=== PATIENT | male | born 1945 | race Caucasian/White ===

== ENCOUNTER 2017-04-21 10:56 | Inpatient (IN) | payer OTHER, MEDICARE ==
[2017-04-21] MEDS ORDERED: chlordiazePOXIDE HCL 25 MG CAPSULE PO ONE (11:31)
[2017-04-21] MEDS ORDERED: FOLIC ACID INJECTION - 1 MG, THIAMINE HCL 100 MG, MULTIVIT INJECTION ADULT 10 ML in SOD... IVPB ONE (11:31)
[2017-04-21 12:06] LABS: ALBUMIN 4.1 g/dl (3.5-5.0); ALCOHOL < 5.0 mg/dl (5.3-49); ALK PHOS 52 U/L (32-92); ANION GAP 12 (8-16); BILIRUBIN,TOTAL 1.2 mg/dl (0.2-1.0); CALCIUM 9.4 mg/dl (8.4-10.2); CO2 23 mmol/L (22-28); CREATININE 0.7 mg/dl (0.6-1.3); GLUCOSE,RANDOM 120 mg/dl (74-106); MAGNESIUM 1.8 mg/dL (1.8-2.4); PHOSPHOROUS 3.3 mg/dl (2.5-4.6); SGOT/AST 59 U/L (10-42); SGPT/ALT 50 U/L (10-40); TOT PROT 6.6 g/dl (6.4-8.3)
[2017-04-21] MEDS ORDERED: THIAMINE HCL 200 MG/2 ML VIAL ONE (12:08)
[2017-04-21] MEDS ORDERED: MULTIVIT INJ. ADULT COMBO WITH VIT K 1 COMBO 10 ML VIAL IV ONE (12:10)
[2017-04-21] MEDS ORDERED: FOLIC ACID 5 MG/1 ML ONE (12:11)
--- NOTE | 2017-04-21 12:11 | PDOC ---
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 The patient had alcohol yesterday, and unclear if patient syncopized or fell (as he was intoxicated) and struck his head. Unclear if LOC, but patient was on the the ground. The patient's had helped the patient up to bed. Today, he was unable to ambulate or get out of bed 2/2 R hip pain and b/ l knee pain. Pt did fall on his knees yesterday. (last tetanus 3 years ago). Pt typically ambulates without a cane. EMS was activated. The patient denies feeling recently ill, but did notice he has been losing weight over the last year (25 lbs). Pt acknowledges that he has an alcohol problem and was diagnosed with fatty liver disease. 04/21/17 15:27 Past History - Past Medical History Allergies/Adverse Reactions: Allergies Allergy/AdvReac Type Severity Reaction Status Date / Time No Known Allergies Allergy Verified 04/21/17 10:58 Home Medications: Ambulatory Orders Albuterol Sulfate Inhaler - [Ventolin Hfa Inhaler -] 1 - 2 inh PO PRN PRN Atorvastatin Ca [Lipitor] 10 mg PO HS 04/21/17 Beclomethasone Dipropionate [Qvar] 8.7 gm IH BID 04/21/17 Chlorthalidone [Hygroton -] 25 mg PO DAILY 04/21/17 Desloratadine 5 mg PO DAILY 04/21/17 Escitalopram Oxalate [Lexapro -] 20 mg PO DAILY 04/21/17 Fluticasone Propionate [Flovent Diskus] 50 mcg IH BID 04/21/17 Levocetirizine Dihydrochloride 5 mg PO DAILY 04/21/17 Levothyroxine [Synthroid -] 100 mcg PO DAILY 04/21/17 Omalizumab [Xolair -] 150 mg SQ ASDIR 04/21/17 Prednisone 10 mg PO ASDIR 04/21/17 Umeclidinium [place] [Incruse Ellipta] 62.5 mcg IH DAILY 04/21/17 Voriconazole [Vfend] 200 mg PO DAILY 04/21/17 Warfarin Sodium [Coumadin] 2.5 mg PO HS 04/21/17 Asthma: Yes COPD: No HTN: Yes Hypercholesterolemia: Yes Thyroid Disease: Yes Other medical history: dvt, sinusitis, PE, - Suicide/Smoking/Psychosocial Hx Smoking History: Never smoked Hx Alcohol Use: Yes Drug/Substance Use Hx: No Substance Use Type: Alcohol Review of Systems - Review of Systems Able to Perform ROS?: Yes Comments:: 04/21/17 12:10 GENERAL/CONSTITUTIONAL: No fever, weakness. HEAD, EYES, EARS, NOSE AND THROAT: No change in vision. No ear pain or discharge. No sore throat. CARDIOVASCULAR: No chest pain or shortness of breath. RESPIRATORY: No cough, wheezing, or hemoptysis. GASTROINTESTINAL: No abdominal pain, nausea, vomiting, diarrhea, or decreased PO intolerance. GENITOURINARY: No dysuria, frequency, or change in urination. MUSCULOSKELETAL: R hip and bilateral knee pain. SKIN: No rash NEUROLOGIC: No headache, vertigo, loss of consciousness, or change in strength/ sensation. +fall and ?LOC. ENDOCRINE: No increased thirst. No abnormal weight change. HEMATOLOGIC/LYMPHATIC: No anemia, easy bleeding, or history of blood clots. ALLERGIC/IMMUNOLOGIC: No hives or skin allergy. *Physical Exam - Vital Signs Last Vital Signs Temp Pulse Resp BP Pulse Ox 98.6 F 103 H 16 152/69 97 04/21/17 11:02 04/21/17 11:02 04/21/17 11:02 04/21/17 11:02 04/21/17 11:02 - Physical Exam Comments: 04/21/17 12:10 GENERAL: Awake, alert, and fully oriented, in no acute distress. HEAD: +Small abrasion to right chin and to left forehead. EYES: PERRLA, EOMI, sclera anicteric, conjunctiva clear ENT: Auricles normal inspection, hearing grossly normal, nares patent, +tongue fasciculations NECK: Normal ROM, supple, no lymphadenopathy, JVD, or masses LUNGS: Breath sounds equal, clear to auscultation bilaterally. No wheezes, and no crackles HEART: Regular rate and rhythm, normal S1 and S2, no murmurs, rubs or gallops ABDOMEN: Soft, nontender, normoactive bowel sounds. No guarding, no rebound. No masses EXTREMITIES: No clubbing or cyanosis. No cords, erythema, or tenderness. Bilateral knee abrasions. +mild erythema but no drainage or induration (likely inflammation as opposed to infection) RLE: 2+ DP pulse. TTP right lateral hip. R hip range of motion limited 2/2 pain. NEUROLOGICAL: Cranial nerves II through XII intact. Normal speech. Upper extremities tremors. Sensation intact and strength intact in upper extremities. Sensation decreased in lower extremities bilaterally (2/2 peipheral neuropathy) SKIN: Warm, Dry, normal turgor, no rashes or lesions noted. ED Treatment Course - LABORATORY CBC & Chemistry Diagram: 04/21/17 11:31 04/21/17 11:31 - ADDITIONAL ORDERS Additional order review: Laboratory Results 04/21/17 04/21/17 11:31 11:31 Sodium 132 L Potassium 4.3 Chloride 97 L Carbon Dioxide 23 Anion Gap 12 BUN 22 H Creatinine 0.7 Creat Clearance w eGFR > 60 Random Glucose 120 H Calcium 9.4 Phosphorus 3.3 Magnesium 1.8 Total Bilirubin 1.2 H AST 59 H ALT 50 H Alkaline Phosphatase 52 Total Protein 6.6 Albumin 4.1 Lipase 22 Alcohol, Quantitative < 5.0 L - RADIOLOGY Radiology Studies Ordered: Category Date Time Status HEAD CT WITHOUT CONTRAST [CT] Stat CT Scan 04/21/17 11:31 Completed CHEST X-RAY PORTABLE* [RAD] Stat Radiology 04/21/17 11:31 Ordered HIP & PELVIS-RIGHT [RAD] Stat Radiology 04/21/17 11:31 Ordered KNEE 3 POS-LEFT [RAD] Stat Radiology 04/21/17 11:31 Ordered KNEE 3 POS-RIGHT [RAD] Stat Radiology 04/21/17 11:31 Ordered Medical Decision Making - Medical Decision Making 04/21/17 12:10 Vital Signs Temp Pulse Resp BP Pulse Ox 98.6 F 103 H 16 152/69 97 04/21/17 11:02 04/21/17 11:02 04/21/17 11:02 04/21/17 11:02 04/21/17 11:02 60 year old male patient presents with multiple issues. Yesterday, it certainly could have been a mechanical fall while intoxicated. But given multiple medical problems, will need to do due diligence, and work up as a syncope. ECG, chest xray, labs including troponin. In addition, patient was noted to be mildly tachycardic and tremulous with last drink of alcohol yesterday concerning for alcohol withdrawals. Librium, banana bag. The right hip is quite tender and may potentially be fractured. Will need hip and pelvis xray. As of now, the bilateral knees look like abrasions and NOT infected yet, but given peripheral neuropathy, on daily prednisone (10 mg for his asthma), and alcohol abuse, high risk for potential cellulitis. Pt is unable to ambulate 2/2 pain. Will likely admit the patient to the hospital. 04/21/17 14:10 CBC, BMP 04/21/17 11:31 04/21/17 11:31 CMP Sodium 132 mmol/L (136-145) L 04/21/17 11:31 Potassium 4.3 mmol/L (3.5-5.1) 04/21/17 11:31 Chloride 97 mmol/L (98-107) L 04/21/17 11:31 Carbon Dioxide 23 mmol/L (22-28) 04/21/17 11:31 Anion Gap 12 (8-16) 04/21/17 11:31 BUN 22 mg/dl (7-18) H 04/21/17 11:31 Creatinine 0.7 mg/dl (0.6-1.3) 04/21/17 11:31 Creat Clearance w eGFR > 60 (>60) 04/21/17 11:31 Random Glucose 120 mg/dl (74-106) H 04/21/17 11:31 Calcium 9.4 mg/dl (8.4-10.2) 04/21/17 11:31 Phosphorus 3.3 mg/dl (2.5-4.6) 04/21/17 11:31 Magnesium 1.8 mg/dL (1.8-2.4) 04/21/17 11:31 Total Bilirubin 1.2 mg/dl (0.2-1.0) H 04/21/17 11:31 AST 59 U/L (10-42) H 04/21/17 11:31 ALT 50 U/L (10-40) H 04/21/17 11:31 Alkaline Phosphatase 52 U/L (32-92) 04/21/17 11:31 Troponin I < 0.03 ng/ml (0.03-0.50) L 04/21/17 11:31 Total Protein 6.6 g/dl (6.4-8.3) 04/21/17 11:31 Albumin 4.1 g/dl (3.5-5.0) 04/21/17 11:31 Lipase 22 U/L (22-51) 04/21/17 11:31 UA pending. HIs tremors improved with librium. Radiographs and Head CT is negative. However, pt continues to have R hip pain. CT pelvis ordered and pending. The patient would likely benefit significantly from a PT evaluation, and reworker in addition to monitoring. Given the fall, the patient has been having difficulties getting around the home, and the is having difficulties caring for him. Will admit for alcohol withdrawal, rule out syncope, right hip pain. 1 *DC/Admit/Observation/Transfer Diagnosis at time of Disposition: Hip pain Qualifiers: Laterality: right Qualified Code(s): M25.551 - Pain in right hip Fall Qualifiers: Encounter type: initial encounter Qualified Code(s): W19.XXXA - Unspecified fall, initial encounter Alcohol withdrawal Qualifiers: Complication of substance-induced condition: uncomplicated Qualified Code(s): F10.230 - Alcohol dependence with withdrawal, uncomplicated - Discharge Dispostion Condition at time of disposition: Stable Admit: Yes - Referrals - Patient Instructions - Post Discharge Activity
[2017-04-21 12:14] LABS: BASOPHIL 0.2 % (0-2.0); EOSINOPHIL 0.1 % (0-4.5); MCH 34.4 pg (25.7-33.7); MCHC 34.8 g/dl (32.0-35.9); MEAN CELL VOLUME 98.9 fl (80-96); MEAN PLT VOLUME 9.1 fl (7.5-11.1); NEUTROPHILS 80.8 % (42.8-82.8); PLATELET COUNT 151 K/MM3 (134-434); RDW 13.6 % (11.9-15.9); WHITE BLOOD COUNT 10.1 K/mm3 (4.0-10.8)
[2017-04-21 12:19] LABS: TROPONIN I (DFP) < 0.03 ng/ml (0.03-0.50)
[2017-04-21 12:25] LABS: ACTIVATED PTT 29.3 SECONDS (24.0-38.9)
[2017-04-21 12:29] LABS: INR 1.95 (0.82-1.09); PROTHROMBIN TIME (PATIENT) 21.5 SEC (10.2-13.0)
[2017-04-21] MEDS ORDERED: chlordiazePOXIDE HCL 25 MG CAPSULE ONE (12:31)
[2017-04-21] MEDS ORDERED: diazePAM CARPU-JECT 10 MG/2 ML DISP.SYRIN IVPUSH ONE (14:13)
[2017-04-21] MEDS ORDERED: diazePAM CARPU-JECT 10 MG/2 ML DISP.SYRIN ONE (14:17)
[2017-04-21 14:54] LABS: URINE APPEARANCE Clear; URINE BILIRUBIN 1+ (NEGATIVE); URINE BLOOD Negative (NEGATIVE); URINE GLUCOSE (UA) Negative (NEGATIVE); URINE KETONE 3+ (NEGATIVE); URINE LEUK ESTERASE Negative (NEGATIVE); URINE NITRITE Negative (NEGATIVE); URINE PROTEIN Trace (NEGATIVE)
[2017-04-21 14:55] LABS: URINE COLOR YELLOW
--- NOTE | 2017-04-21 15:05 | HP ---
CHIEF COMPLAINT: fall at home, increased weakness, syncope PCP: HISTORY OF PRESENT ILLNESS: Patient is a 71 year old male with a significant past medical history of peripheral neuropathy, severe asthma on daily prednisone (Prednisone 10mg), hx of PEs and DVTs (on home Coumadin), hyperlipidemia, thyroid disorder, alcohol daily use (3 glasses of wine and scotch) as per patient. Patient presents to the ED today for worsening weakness after sustaining a fall yesterday. Patient reports that yesterday, he was drinking his usual amount of alcohol and fell when he went outside. He states he fell on the concrete but does not remember hitting his head, does not remember any LOC. After the fall, his helped him get back inside and into the bed. However, this morning, patient was unable to get out of the bed or ambulate secondary to right hip and bilateral knee pain. Patient states that he is able to ambulate unassisted at home and does not use any devices. Patient admits to chronic alcohol use and abuse and is interested in detox and eventually rehab. On admission, patient was noted to have upper body tremors, headaches, and appears anxious. He is at risk for withdrawal seizure. His CIWA score is high and therefore a Libirum taper will be initiated. He is currently receiving a banana bag. He is also noted to have bilateral knee scapes, abrasions, a facial abrasion on left upper cheek and a small bruise on the bottom of his lip. He is also noted to have a bruise to his right hip. ER course was notable for: (1) troponin 0.03 (2) NA 132 (3) Bili 1.2 (4) AST 59/ALT 59 (5) ETOH <5.0 (7) Ketones 3+ (8) Librium 50mg and Valium in ER Recent Travel: none reported PAST MEDICAL HISTORY: peripheral neuropathy, severe asthma on daily prednisone (Prednisone 10mg), hx of PEs and DVTs (on home Coumadin), hyperlipidemia, thyroid disorder, alcohol daily use (3 glasses of wine and scotch) as per patient. PAST SURGICAL HISTORY: Social History: Smoking: denies Alcohol: yes chronic, daily ETOH use Drugs: denies Family History: Allergies No Known Allergies Allergy (Verified 04/21/17 10:58) HOME MEDICATIONS: Home Medications Medication Instructions Recorded Albuterol Sulfate Inhaler - 1 - 2 inh PO PRN PRN 04/21/17 [Ventolin Hfa Inhaler -] Atorvastatin Ca [Lipitor] 10 mg PO HS 04/21/17 Beclomethasone Dipropionate [Qvar] 8.7 gm IH BID 04/21/17 Chlorthalidone [Hygroton -] 25 mg PO DAILY 04/21/17 Desloratadine 5 mg PO DAILY 04/21/17 Escitalopram Oxalate [Lexapro -] 20 mg PO DAILY 04/21/17 Fluticasone Propionate [Flovent 50 mcg IH BID 04/21/17 Diskus] Levocetirizine Dihydrochloride 5 mg PO DAILY 04/21/17 Levothyroxine [Synthroid -] 100 mcg PO DAILY 04/21/17 Omalizumab [Xolair -] 150 mg SQ ASDIR 04/21/17 Prednisone 10 mg PO ASDIR 04/21/17 Umeclidinium [place] [Incruse 62.5 mcg IH DAILY 04/21/17 Ellipta] Voriconazole [Vfend] 200 mg PO DAILY 04/21/17 Warfarin Sodium [Coumadin] 2.5 mg PO HS 04/21/17 REVIEW OF SYSTEMS CONSTITUTIONAL: Absent: fever, chills, diaphoresis, HEENT: Absent: rhinorrhea, nasal congestion, throat pain, throat swelling, difficulty swallowing, mouth swelling, ear pain, eye pain, visual changes CARDIOVASCULAR: Absent: chest pain, palpitations, irregular heart rate, peripheral edema RESPIRATORY: Absent: cough, shortness of breath, dyspnea with exertion, orthopnea, wheezing, stridor, hemoptysis GASTROINTESTINAL: Absent: abdominal pain, nausea, vomiting, diarrhea, constipation, melena, hematochezia GENITOURINARY: Absent: dysuria, frequency, urgency, hesitancy, hematuria, flank pain, genital pain MUSCULOSKELETAL: Absent: myalgia, arthralgia, joint swelling, back pain, neck pain SKIN: Absent: rash, itching, pallor HEMATOLOGIC/IMMUNOLOGIC: Absent: easy bleeding, easy bruising, lymphadenopathy, frequent infections ENDOCRINE: Absent: unexplained weight gain, heat intolerance, cold intolerance NEUROLOGIC: Absent: headache, focal weakness or paresthesias, mental status changes, bladder or bowel incontinence PSYCHIATRIC: Absent: suicidal or homicidal ideation, hallucinations. PHYSICAL EXAMINATION Vital Signs - 24 hr 04/21/17 04/21/17 11:02 14:43 Temperature 98.6 F Pulse Rate 103 H Pulse Rate [ 85 Apical] Respiratory 16 16 Rate Blood Pressure 152/69 Blood Pressure 114/58 [Right Arm] O2 Sat by Pulse 97 97 Oximetry (%) GENERAL: Awake, alert, and oriented to self, place and time, upper body tremors on exam HEAD: Laceration on left side of face by cheek bone, bruise on right bottom lip EYES: Pupils equal, round and reactive to light, extraocular movements intact, sclera anicteric, conjunctiva clear. No lid lag. EARS, NOSE, THROAT: Ears normal, nares patent, oropharynx clear without exudates. Moist mucous membranes. NECK: Normal range of motion, supple without lymphadenopathy, JVD, or masses. LUNGS: Breath sounds equal, diminished bilaterally, no wheezing HEART: Regular rate and rhythm ABDOMEN: Soft, nontender, mildly distended, + bowel sounds, no abdominal pain MUSCULOSKELETAL: bilateral lower ext. weakness, bilateral knees with abrasions, lacerations UPPER EXTREMITIES: tremors at rest NEUROLOGICAL: speech mostly clear, garbled at times PSYCHIATRIC: Cooperative. Good eye contact. Appropriate mood and affect. SKIN: right small facial abrasion, bruise on right side of lip, bilateral knee abrasions s/p fall, right hip bruise s/p fall Laboratory Results - last 24 hr 04/21/17 04/21/17 04/21/17 11:31 11:31 11:31 WBC 10.1 RBC 3.94 L Hgb 13.5 Hct 38.9 MCV 98.9 H MCH 34.4 H MCHC 34.8 RDW 13.6 Plt Count 151 MPV 9.1 Neutrophils % 80.8 Lymphocytes % 7.6 L Monocytes % 11.3 H Eosinophils % 0.1 Basophils % 0.2 PT with INR 21.5 H INR 1.95 H PTT (Actin FS) 29.3 Sodium 132 L Potassium 4.3 Chloride 97 L Carbon Dioxide 23 Anion Gap 12 BUN 22 H Creatinine 0.7 Creat Clearance w eGFR > 60 Random Glucose 120 H Calcium 9.4 Phosphorus 3.3 Magnesium 1.8 Total Bilirubin 1.2 H AST 59 H ALT 50 H Alkaline Phosphatase 52 Troponin I Total Protein 6.6 Albumin 4.1 Lipase 22 Urine Color Urine Appearance Urine pH Ur Specific [place] Urine Protein Urine Glucose (UA) Urine Ketones Urine Blood Urine Nitrite Urine Bilirubin Urine Urobilinogen Ur Leukocyte Esterase Alcohol, Quantitative 04/21/17 04/21/17 11:31 14:41 WBC RBC Hgb Hct MCV MCH MCHC RDW Plt Count MPV Neutrophils % Lymphocytes % Monocytes % Eosinophils % Basophils % PT with INR INR PTT (Actin FS) Sodium Potassium Chloride Carbon Dioxide Anion Gap BUN Creatinine Creat Clearance w eGFR Random Glucose Calcium Phosphorus Magnesium Total Bilirubin AST ALT Alkaline Phosphatase Troponin I < 0.03 L Total Protein Albumin Lipase Urine Color Yellow Urine Appearance Clear Urine pH 6.0 Ur Specific [place] 1.025 Urine Protein Trace Urine Glucose (UA) Negative Urine Ketones 3+ H Urine Blood Negative Urine Nitrite Negative Urine Bilirubin 1+ H Urine Urobilinogen 2.0 Ur Leukocyte Esterase Negative Alcohol, Quantitative < 5.0 L ASSESSMENT/PLAN: Patient is a 71 year old male with a significant past medical history of peripheral neuropathy, severe asthma on daily prednisone (Prednisone 10mg), hx of PEs and DVTs (on home Coumadin), hyperlipidemia, thyroid disorder, alcohol daily use (3 glasses of wine and scotch) as per patient. Patient presents to the ED today for worsening weakness after sustaining a fall yesterday. Patient reports that yesterday, he was drinking his usual amount of alcohol and fell when he went outside. He states he fell on the concrete but does not remember hitting his head, does not remember any LOC. After the fall, his helped him get back inside and into the bed. However, this morning, patient was unable to get out of the bed or ambulate secondary to right hip and bilateral knee pain. Patient states that he is able to ambulate unassisted at home and does not use any devices. Patient admits to chronic alcohol use and abuse and is interested in detox and eventually rehab. On admission, patient was noted to have upper body tremors, headaches, and appears anxious. He is at risk for withdrawal seizure. His CIWA score is high and therefore a Libirum taper will be initiated. He is currently receiving a banana bag. He is also noted to have bilateral knee scapes, abrasions, a facial abrasion on left upper cheek and a small bruise on the bottom of his lip. He is also noted to have a bruise to his right hip. Imaging: Head CT: no evidence of acute intracranial pathology Hip Pelvix Xray: no fracture or dislocation of right hip Knree xray: no evidence of acute fracture Neuro: Syncope with Fall in the setting of ETOH abuse CIWA score elevated, at risk for seizures Start Librium protocol now Monitor for seizures Banana bag x 1 IVF @ 100cc/hr Monitor mental status Head CT as above Consult with [facility] Electrolyte Imbalance in the setting of chronic ETOH use Hypernatremia, start NS @ 100cc/hr Folate, Multivitamin Cardiology: Syncope, rule out cardiac cause Troponins x 3 Monitor BP Monitor on tele Hyperlipidemia, chronic Lipid panel Muscular Skeletal/Integumentary: Bilateral knees with abrasions, no signs of infection monitor closely for cellulitis as pt has hx of falls and is on chronic prednisone Monitor labs, vitals, monitor for signs of infection Pulmonary: Severe asthma history Does not appear to be in acute exacerbation but nethertheless at risk Continue home Prednisone 10mg Albuteroal PRN Pulmonary consult Hematology: DVT/PE history Continue Coumadin per INR Monitor labs s/p fall F.E.N. Fluids: NS @100/cc/hr Electrolytes: monitor Nutriton: regular diet Disposition: full code. Requires inpatient monitoring Visit type - Emergency Visit Emergency Visit: Yes ED Registration Date: 04/21/17 Care time: The patient presented to the Emergency Department on the above date and was hospitalized for further evaluation of their emergent condition. - New Patient This patient is new to me today: Yes Date on this admission: 04/21/17 - Critical Care Critical Care patient: No
[2017-04-21] MEDS ORDERED: chlordiazePOXIDE HCL 25 MG CAPSULE PO PRN (15:08)
[2017-04-21] MEDS ORDERED: SODIUM CHLORIDE 1,000 ML IV SCH (15:15)
[2017-04-21] MEDS: chlordiazePOXIDE HCL 25 MG CAPSULE PO SCH ×2 (16:55→23:36)
[2017-04-21 17:47] VITALS: BMI 27.1
--- NOTE | 2017-04-21 18:10 | CONSULT ---
"Consult Detox [facility] Reason for Current Admission/Consult: evaluation of alcohol use Referred by:: Bonny Cleveland NP - History History of Present Illness: Search Terms: Ron Moyer, 1945 Search Date: 04/21/2017 07:03:44 PM The Drug Utilization Report below displays all of the controlled substance prescriptions, if any, that your patient has filled in the last twelve months. The information displayed on this report is compiled from pharmacy submissions to the Department, and accurately reflects the information as submitted by the pharmacies. This report was requested by: Merrill Brown | Reference #: [id number] 71 yo m w PMHx of depression on lexapro, painful peripheral neuropathy, asthma on prednisone, , hx of PEs and DVTs, hyperlipidemia, thyroid disorder, daily alcohol use 3 glasses wine/scotch reported which has increased since retiring one year ago. Admitted with acetabular fx after falling while intoxicated 2 days ago. Has never been in drug treatment although he gives long history of drinking and strong family history. Patient reports alcohol withdrawal syndrome when he does not drink but denies seizures or DTS in the past. Suffers from depression and is on lexapro. Recieved bananna bag and benzodiazepines since hospitalized but still c/o tremors, anxiety and insomnia, sweats and pain in r hip and peripheral neuropathy keeping him up at night Has bilateral knee scapes, abrasions, a facial abrasion on left upper cheek and a small bruise on the bottom of his lip. He is also noted to have a bruise to his right hip. - History Source History Provided By: Patient, Medical Record, Caregiver Limitations to Obtaining History: No Limitations - Alcohol/Substance Use Hx Alcohol Use: Yes Hx Substance Use: No Hx Substance Use Treatment: No - Current Drug/Alcohol Use Alcohol Route: Oral Frequency: Daily Amount used: 3 glasses of wine and scotch with recent increase in use over past year Age of first use: 20 Date of Last Use: 04/20/17 - Past Medical History TRENCH DIGGER: Yes: Peripheral Neuropathy Cardio/Vascular: Yes: Hyperlipdemia Pulmonary: Yes: Asthma Psych: Yes: Addictions, Depression Endocrine: Yes: Diabetes Mellitus - Significant Medical Findings: 71 y malnourished male with signs of alcohol withdrawal sx and tremors, abrasions and bruising over body from fall while intoxicated, unable to get out of bed without assistance, a and o x3, answers appropriately. requesting rehab after detox and pain management CIWA Score - CIWA Score Nausea/Vomitin Muscle Tremors: 4-Moderate,w/Arms Extend Anxiety: 3 Agitation: 3 Paroxysmal Sweats: 3 Orientation: 0-Oriented Tacttile Disturbances: 2-Mild Itch/Numbness/Burn Auditory Disturbances: 0-None Visual Disturbances: 0-None Headache: 2-Mild CIWA-Ar Total Score: 20 Assessment Plan - Diagnosis (1) Alcohol dependence with uncomplicated withdrawal Status: Acute (2) Asthma Status: Acute (3) Depression Status: Acute (4) Diabetes mellitus Status: Acute (5) Hypokalemia Status: Acute (6) Peripheral neuropathy Status: Acute (7) Fall Status: Acute Qualifiers: Encounter type: initial encounter Qualified Code(s): W19.XXXA - Unspecified fall, initial encounter (8) Hip pain Status: Acute Qualifiers: Laterality: right Qualified Code(s): M25.551 - Pain in right hip (9) Hypoalbuminemia Status: Acute (10) Hypomagnesemia Status: Acute - Plan Plan: 71 yo m with multiple medical comorbidities admitted with alcohol dependence and withdrawal sx after falling and fracturing acetabulum yesterday while intoxicated, now sober requiring alcohol detox with librium and nutritional supplementation with glucerna, MVI which contaisns iron and folic acid , thiamine at night , k and mg supplementation, control of pain - peripheral neuropathy reportedly keeping him up at night. gabapentin 100mg tid and elavil 25mg qHS ordered, MVI and thiamine as well. Patient is requesting placement in rehab after inpatient medical detox at [facility] - can come to [facility] if bed available but he may want to go to private facility with psychiatric care such as [facility] if he can afford it. Consider referral for intensive outpatient treatment to [facility]/ [facility] for alcohol use disorder in his aftercare plan. Can recieve psychaitric care and medication assisted treatment for alcohol use disorder if inpatient treatment not an option. Will lindsay julien for ramon phillips. Merrill Brown MD [phone] - Medication Detox Regimen/Protocol: Librium"
[2017-04-21] MEDS: WARFARIN NA 2.5 MG TABLET (FP) PO SCH (18:16)
[2017-04-21] MEDS ORDERED: ZOLPIDEM TARTRATE 5 MG TABLET PO PRN (19:05)
[2017-04-21] MEDS: THIAMINE HCL 100 MG TABLET (FP) PO SCH (21:44)
[2017-04-21] MEDS: ATORVASTATIN CA 10 MG TABLET (FP) PO SCH (21:44)
[2017-04-21] MEDS: MOMETASONE FUROATE 220 MCG/IH INHALER IH SCH (21:44)
[2017-04-22 01:36] LABS: URINE MARIJUANA THC NEGATIVE ng/ml (CUTOFF=50)
[2017-04-22] MEDS: chlordiazePOXIDE HCL 25 MG CAPSULE PO SCH ×4 (04:36→22:34)
[2017-04-22] MEDS: LEVOTHYROXINE NA 100 MCG TABLET (FP) PO SCH (06:01)
--- NOTE | 2017-04-22 08:27 | PN ---
Physical Exam: SUBJECTIVE: Patient seen and examined, patient reports ongoing right hip pain that worsens upon movement, patient denies any paresthesia to the extremity. OBJECTIVE: Patient is a 71 y/o male with a past medical history of DVT/PE, COPD , peripheral vascular disease, and hypothyroidism. Patient was admitted from the emergency department for a right acetabular pelvic fracture. Vital Signs Period Temp Pulse Resp BP Sys/Mello Pulse Ox Last 24 Hr 98.4 F-99.0 F 80-103 16-19 114-152/58-69 96-97 GENERAL: The patient is awake, alert, and fully oriented, in no acute distress. HEAD: Normal with no signs of trauma. EYES: PERRL, extraocular movements intact, sclera anicteric, conjunctiva clear. No ptosis. ENT: Ears normal, nares patent, oropharynx clear without exudates, moist mucous membranes. NECK: Trachea midline, full range of motion, supple. LUNGS: Breath sounds equal, clear to auscultation bilaterally, no wheezes, no crackles, no accessory muscle use. HEART: Regular rate and rhythm, S1, S2 without murmur, rub or gallop. ABDOMEN: Soft, nontender, nondistended, normoactive bowel sounds, no guarding, no rebound, no hepatosplenomegaly, no masses. EXTREMITIES: 2+ pulses, warm, well-perfused, no edema. echymosis to the right lateral proximal thigh with point tenderness, venous changes to bilateral lower extremities. NEUROLOGICAL: Cranial nerves II through XII grossly intact. Normal speech, gait not observed. PSYCH: Normal mood, normal affect. SKIN: Warm, dry, normal turgor, no rashes or lesions noted, echymosis noted to the back and billateral lower extremities. abrasion noted to bilateral knees Laboratory Results - last 24 hr CBC WBC 6.2 K/mm3 (4.0-10.8) D 04/22/17 08:10 RBC 3.47 M/mm3 (4.00-5.60) L 04/22/17 08:10 Hgb 11.8 GM/dl (11.7-16.9) D 04/22/17 08:10 Hct 34.7 % (35.4-49) L 04/22/17 08:10 MCV 100.2 fl (80-96) H 04/22/17 08:10 MCH 34.1 pg (25.7-33.7) H 04/22/17 08:10 MCHC 34.0 g/dl (32.0-35.9) 04/22/17 08:10 RDW 12.9 % (11.9-15.9) 04/22/17 08:10 Plt Count 115 K/MM3 (134-434) L D 04/22/17 08:10 MPV 8.7 fl (7.5-11.1) 04/22/17 08:10 Neutrophils % 73.8 % (42.8-82.8) 04/22/17 08:10 Lymphocytes % 14.9 % (8-40) D 04/22/17 08:10 Monocytes % 10.4 % (3.8-10.2) H 04/22/17 08:10 Eosinophils % 0.3 % (0-4.5) D 04/22/17 08:10 Basophils % 0.6 % (0-2.0) 04/22/17 08:10 CMP Sodium 138 mmol/L (136-145) 04/22/17 08:10 Potassium 3.4 mmol/L (3.5-5.1) L D 04/22/17 08:10 Chloride 104 mmol/L (98-107) 04/22/17 08:10 Carbon Dioxide 24 mmol/L (22-28) 04/22/17 08:10 Anion Gap 10 (8-16) 04/22/17 08:10 BUN 12 mg/dl (7-18) D 04/22/17 08:10 Creatinine 0.6 mg/dl (0.6-1.3) 04/22/17 08:10 Creat Clearance w eGFR > 60 (>60) 04/22/17 08:10 Random Glucose 94 mg/dl (74-106) D 04/22/17 08:10 Hemoglobin A1c % 6.2 % (4.8-6.0) H 04/22/17 08:10 Calcium 7.9 mg/dl (8.4-10.2) L 04/22/17 08:10 Phosphorus 2.5 mg/dl (2.5-4.6) D 04/22/17 07:50 Magnesium 1.7 mg/dL (1.8-2.4) L 04/22/17 08:10 Total Bilirubin 1.8 mg/dl (0.2-1.0) H D 04/22/17 08:10 AST 36 U/L (10-42) D 04/22/17 08:10 ALT 33 U/L (10-40) D 04/22/17 08:10 Alkaline Phosphatase 52 U/L (32-92) 04/21/17 11:31 Troponin I < 0.02 ng/ml (0.00-0.05) 04/22/17 01:00 Total Protein 5.2 g/dl (6.4-8.3) L D 04/22/17 08:10 Albumin 3.2 g/dl (3.5-5.0) L D 04/22/17 08:10 Lipase 22 U/L (22-51) 04/21/17 11:31 Active Medications Generic Name Dose Route Start Last Admin Trade Name Freq PRN Reason Stop Dose Admin Albuterol/Ipratropium 1 amp 04/21/17 15:59 Duoneb - NEB Q6H PRN SHORTNESS OF BREATH Atorvastatin Calcium 10 mg 04/21/17 22:00 04/21/17 21:44 Lipitor - PO 10 mg HS NIKKI Administration Chlordiazepoxide HCl 50 mg 04/21/17 17:00 04/22/17 04:36 Librium - PO 04/22/17 11:01 50 mg [id number] NIKKI Administration Chlordiazepoxide HCl 25 mg 04/22/17 17:00 Librium - PO 04/23/17 11:01 [id number] NIKKI Chlordiazepoxide HCl 15 mg 04/23/17 17:00 Librium - PO 04/24/17 11:01 [id number] NIKKI Chlordiazepoxide HCl 25 mg 04/21/17 15:08 Librium - PO 04/24/17 15:07 Q4H PRN WITHDRAWAL(CONT SUBST) Escitalopram Oxalate 20 mg 04/22/17 10:00 Lexapro - PO DAILY NIKKI Sodium Chloride 1,000 mls @ 100 mls/hr 04/21/17 15:15 04/21/17 16:56 Normal Saline - IV 100 mls/hr ASDIR NIKKI Administration Levothyroxine Sodium 100 mcg 04/22/17 07:00 04/22/17 06:01 Synthroid - PO 100 mcg DAILY@0700 NIKKI Administration Mometasone Furoate 1 puff 04/21/17 22:00 04/21/17 21:44 Asmanex 220mcg - IH 1 puff HS NIKKI Administration Prednisone 10 mg 04/22/17 10:00 Deltasone - PO DAILY NIKKI Multivit/Folic Acid/Iron 1 tab 04/22/17 10:00 Vitamins (Sjr) - PO DAILY NIKKI Thiamine HCl 100 mg 04/21/17 22:00 04/21/17 21:44 Vitamin B1 - PO 100 mg HS NIKKI Administration Warfarin Sodium 2.5 mg 04/21/17 18:00 04/21/17 18:16 Coumadin - PO 2.5 mg DAILY@1800 NIKKI Administration Zolpidem Tartrate 5 mg 04/21/17 19:05 Ambien - PO HS PRN INSOMNIA Imaging: Head CT: no evidence of acute intracranial pathology Hip Pelvix Xray: no fracture or dislocation of right hip Knee xray: no evidence of acute fracture ct of pelvis:acute right acetabular fracture ASSESSMENT/PLAN: 1) MS right acetabular fracture - continue prn morphine - appreciate the input of orthopedist (She/Sebastian) - serial neurovascular checks - abrasions noted to bilateral knees, start bactroban and ancef 2) CARDIOVASCULAR questionable synopal episode - troponin x 3 wnl - no events on cardiac monitoring hyperlipidemia - continue lipitor 3) pulmonary copd - no acute excerbation at this time, continue home dose prednisone - continue combivent and asmanex - appreciate pulmonary input 4) hematology hx dvt/pe - on coumadin, subtherepeutic start heparin gtt - scd/jacob 5) psych etoh - continue librium protocol - Dr Brown, clinical transformation specialist consulted and following anxiety/depression - continue lexapro 6) endo hypothyroidism -continue synthroid, pending tsh F.E.N. Fluids: NS w/20meg kci @75ml/hr x 2 bags Electrolytes: monitor Nutriton: regular diet ppx - heparin with coumdin bridge - pepcid - scd/jacob Disposition: full code. Requires inpatient monitoring Visit type - Emergency Visit Emergency Visit: Yes ED Registration Date: 04/21/17 Care time: The patient presented to the Emergency Department on the above date and was hospitalized for further evaluation of their emergent condition. - New Patient This patient is new to me today: Yes Date on this admission: 04/22/17 - Critical Care Critical Care patient: No - Discharge Referral Referred to [facility] Med P.C.: No
[2017-04-22 08:35] LABS: BASOPHIL 0.6 % (0-2.0); EOSINOPHIL 0.3 % (0-4.5); MCH 34.1 pg (25.7-33.7); MEAN CELL VOLUME 100.2 fl (80-96); MEAN PLT VOLUME 8.7 fl (7.5-11.1); NEUTROPHILS 73.8 % (42.8-82.8); PLATELET COUNT 115 K/MM3 (134-434); RDW 12.9 % (11.9-15.9); WHITE BLOOD COUNT 6.2 K/mm3 (4.0-10.8)
[2017-04-22 08:50] LABS: ALBUMIN 3.2 g/dl (3.5-5.0); ANION GAP 10 (8-16); BILIRUBIN,TOTAL 1.8 mg/dl (0.2-1.0); CALCIUM 7.9 mg/dl (8.4-10.2); CO2 24 mmol/L (22-28); CREATININE 0.6 mg/dl (0.6-1.3); GLUCOSE,RANDOM 94 mg/dl (74-106); MAGNESIUM 1.7 mg/dL (1.8-2.4); SGOT/AST 36 U/L (10-42); SGPT/ALT 33 U/L (10-40); TOT PROT 5.2 g/dl (6.4-8.3)
[2017-04-22 09:06] LABS: INR 1.38 (0.82-1.09); PROTHROMBIN TIME (PATIENT) 15.3 SEC (10.2-13.0)
[2017-04-22] MEDS: predniSONE 10 MG TABLET (UD) PO SCH (09:28)
[2017-04-22] MEDS: ESCITALOPRAM OXALATE 20 MG TABLET (FP) PO SCH (09:28)
[2017-04-22] MEDS ORDERED: MAGNESIUM SULFATE 2 GM in SODIUM CHLORIDE 100 ML IVPB ONE ×2 (09:39→11:00)
[2017-04-22] MEDS ORDERED: MAGNESIUM SULF 50% (8.12 MEQ/2 ML-1 GM VIAL) IVPB ONE (10:00)
[2017-04-22] MEDS ORDERED: POTASSIUM CHLORIDE TABS 20 MEQ TABLET.ER (FP) PO SCH (10:00)
[2017-04-22] MEDS ORDERED: POTASSIUM CHLORIDE TABS 20 MEQ TABLET.ER (FP) PO ONE (10:10)
--- NOTE | 2017-04-22 10:17 | CON.CARD ---
Consult Consult Specialty:: Cardiology Referred by:: Hospitalist service Reason for Consultation:: Cardiac evaluation - History of Present Illness Chief Complaint: Status post fall resulting in right pelvic fracture History of Present Illness: Patient is a 71 year old male with underlying history of pulmonary embolism and DVTs taking chronic anticoagulation (Coumadin) followed by Dr. Shakeel Lovell (Network Systems Consultant at [facility]), in addition to hypercholesterolemia, hypothyroidism, bronchial asthma and ETOH use. He presents with worsening weakness and sustained a fall resulting in right pelvic fracture. He has ETOH daily and was intoxicated when he presented to the hospital. He denies LOC, but has had LOC when he fell last year. Currently, he denies chest pain, shortness of breath or palpitations. He denies paroxysmal nocturnal dyspnea or orthopnea. He denies fever or chills. He denies headache or lightheadedness at this time. He still has tremors and is on Librium taper. He is awake and alert. Cardiology consultation was called for further evaluation and for cardiac clearance Cardiology: Dr. Shakeel Lovell at [facility] - History Source History Provided By: Patient, Medical Record Limitations to Obtaining History: Clinical Condition - Past Medical History Pulmonary: Yes: Asthma Gastrointestinal: Yes: Other (Fatty liver) - Alcohol/Substance Use Hx Alcohol Use: Yes History of Substance Use: reports: None - Smoking History Smoking history: Never smoked Home Medications - Allergies Allergies/Adverse Reactions: Allergies Allergy/AdvReac Type Severity Reaction Status Date / Time No Known Allergies Allergy Verified 04/21/17 10:58 - Home Medications Home Medications: Ambulatory Orders Albuterol Sulfate Inhaler - [Ventolin Hfa Inhaler -] 1 - 2 inh PO PRN PRN Atorvastatin Ca [Lipitor] 10 mg PO HS 04/21/17 Beclomethasone Dipropionate [Qvar] 8.7 gm IH BID 04/21/17 Chlorthalidone [Hygroton -] 25 mg PO DAILY 04/21/17 Desloratadine 5 mg PO DAILY 04/21/17 Escitalopram Oxalate [Lexapro -] 20 mg PO DAILY 04/21/17 Fluticasone Propionate [Flovent Diskus] 50 mcg IH BID 04/21/17 Levocetirizine Dihydrochloride 5 mg PO DAILY 04/21/17 Levothyroxine [Synthroid -] 100 mcg PO DAILY 04/21/17 Omalizumab [Xolair -] 150 mg SQ ASDIR 04/21/17 Prednisone 10 mg PO ASDIR 04/21/17 Umeclidinium [place] [Incruse Ellipta] 62.5 mcg IH DAILY 04/21/17 Voriconazole [Vfend] 200 mg PO DAILY 04/21/17 Warfarin Sodium [Coumadin] 2.5 mg PO HS 04/21/17 Review of Systems - Review of Systems Constitutional: denies: Chills, Fever Cardiovascular: denies: Chest Pain, Palpitations, Shortness of Breath Respiratory: denies: Cough, Hemoptysis, Orthopnea, PND, SOB, SOB on Exertion Gastrointestinal: denies: Abdominal Pain, Constipation, Diarrhea, Melena, Nausea , Rectal Bleeding, Vomiting Genitourinary: denies: Dysuria, Hematuria Musculoskeletal: reports: Joint Pain Neurological: reports: Syncope (Probably due to ETOH intoxication). denies: Dizziness, Headache, Seizure Vital Signs: Vital Signs Temperature 98.4 F 04/22/17 06:00 Pulse Rate 80 04/22/17 06:00 Respiratory Rate 19 04/22/17 06:00 Blood Pressure 128/63 04/22/17 06:00 O2 Sat by Pulse Oximetry (%) 96 04/22/17 06:37 Neck: Yes: Supple Respiratory: Yes: CTA Bilaterally Gastrointestinal: Yes: Normal Bowel Sounds, Soft. No: Tenderness Cardiovascular: Yes: Regular Rate and Rhythm JVD: No Carotid Bruit: No PMI: Non-Displaced Heart Sounds: Yes: S1, S2 Extremities: Yes: Erythema Edema: No - Other Data Labs, Other Data: CBC, BMP 04/22/17 08:10 04/22/17 08:10 INR, PTT INR 1.38 (0.82-1.09) H 04/22/17 08:10 Troponin, BNP 04/21/17 04/21/17 04/22/17 11:31 18:15 01:00 Troponin I < 0.03 L 0.02 < 0.02 Laboratory Results - last 24 hr 04/21/17 04/21/17 04/21/17 11:31 11:31 11:31 WBC 10.1 RBC 3.94 L Hgb 13.5 Hct 38.9 MCV 98.9 H MCH 34.4 H MCHC 34.8 RDW 13.6 Plt Count 151 MPV 9.1 Neutrophils % 80.8 Lymphocytes % 7.6 L Monocytes % 11.3 H Eosinophils % 0.1 Basophils % 0.2 PT with INR 21.5 H INR 1.95 H PTT (Actin FS) 29.3 Sodium 132 L Potassium 4.3 Chloride 97 L Carbon Dioxide 23 Anion Gap 12 BUN 22 H Creatinine 0.7 Creat Clearance w eGFR > 60 Random Glucose 120 H Hemoglobin A1c % Calcium 9.4 Phosphorus 3.3 Magnesium 1.8 Total Bilirubin 1.2 H AST 59 H ALT 50 H Alkaline Phosphatase 52 Troponin I Total Protein 6.6 Albumin 4.1 Lipase 22 Urine Color Urine Appearance Urine pH Ur Specific [place] Urine Protein Urine Glucose (UA) Urine Ketones Urine Blood Urine Nitrite Urine Bilirubin Urine Urobilinogen Ur Leukocyte Esterase Opiates Screen Methadone Screen Barbiturate Screen Phencyclidine Screen Ur Amphetamines Screen MDMA (Ecstasy) Screen Benzodiazepines Screen Cocaine Screen U Marijuana (THC) Screen Alcohol, Quantitative 04/21/17 04/21/17 04/21/17 11:31 14:41 18:15 WBC RBC Hgb Hct MCV MCH MCHC RDW Plt Count MPV Neutrophils % Lymphocytes % Monocytes % Eosinophils % Basophils % PT with INR INR PTT (Actin FS) Sodium Potassium Chloride Carbon Dioxide Anion Gap BUN Creatinine Creat Clearance w eGFR Random Glucose Hemoglobin A1c % Calcium Phosphorus Magnesium Total Bilirubin AST ALT Alkaline Phosphatase Troponin I < 0.03 L 0.02 Total Protein Albumin Lipase Urine Color Yellow Urine Appearance Clear Urine pH 6.0 Ur Specific [place] 1.025 Urine Protein Trace Urine Glucose (UA) Negative Urine Ketones 3+ H Urine Blood Negative Urine Nitrite Negative Urine Bilirubin 1+ H Urine Urobilinogen 2.0 Ur Leukocyte Esterase Negative Opiates Screen Methadone Screen Barbiturate Screen Phencyclidine Screen Ur Amphetamines Screen MDMA (Ecstasy) Screen Benzodiazepines Screen Cocaine Screen U Marijuana (THC) Screen Alcohol, Quantitative < 5.0 L 04/21/17 04/22/17 04/22/17 21:50 01:00 08:10 WBC 6.2 D RBC 3.47 L Hgb 11.8 D Hct 34.7 L MCV 100.2 H MCH 34.1 H MCHC 34.0 RDW 12.9 Plt Count 115 L D MPV 8.7 Neutrophils % 73.8 Lymphocytes % 14.9 D Monocytes % 10.4 H Eosinophils % 0.3 D Basophils % 0.6 PT with INR INR PTT (Actin FS) Sodium Potassium Chloride Carbon Dioxide Anion Gap BUN Creatinine Creat Clearance w eGFR Random Glucose Hemoglobin A1c % Calcium Phosphorus Magnesium Total Bilirubin AST ALT Alkaline Phosphatase Troponin I < 0.02 Total Protein Albumin Lipase Urine Color Urine Appearance Urine pH Ur Specific [place] Urine Protein Urine Glucose (UA) Urine Ketones Urine Blood Urine Nitrite Urine Bilirubin Urine Urobilinogen Ur Leukocyte Esterase Opiates Screen Negative Methadone Screen Negative Barbiturate Screen Negative Phencyclidine Screen Negative Ur Amphetamines Screen Negative MDMA (Ecstasy) Screen Negative Benzodiazepines Screen Positive Cocaine Screen Negative U Marijuana (THC) Screen Negative Alcohol, Quantitative 04/22/17 04/22/17 04/22/17 08:10 08:10 08:10 WBC RBC Hgb Hct MCV MCH MCHC RDW Plt Count MPV Neutrophils % Lymphocytes % Monocytes % Eosinophils % Basophils % PT with INR 15.3 H INR 1.38 H PTT (Actin FS) Sodium 138 Potassium 3.4 L D Chloride 104 Carbon Dioxide 24 Anion Gap 10 BUN 12 D Creatinine 0.6 Creat Clearance w eGFR > 60 Random Glucose 94 D Hemoglobin A1c % 6.2 H Calcium 7.9 L Phosphorus Magnesium 1.7 L Total Bilirubin 1.8 H D AST 36 D ALT 33 D Alkaline Phosphatase Troponin I Total Protein 5.2 L D Albumin 3.2 L D Lipase Urine Color Urine Appearance Urine pH Ur Specific [place] Urine Protein Urine Glucose (UA) Urine Ketones Urine Blood Urine Nitrite Urine Bilirubin Urine Urobilinogen Ur Leukocyte Esterase Opiates Screen Methadone Screen Barbiturate Screen Phencyclidine Screen Ur Amphetamines Screen MDMA (Ecstasy) Screen Benzodiazepines Screen Cocaine Screen U Marijuana (THC) Screen Alcohol, Quantitative Sinus rhythm with 1st degree AV block, no ST-T abnormality Echo: Pending Imaging - Results Chest X-ray: Report Reviewed (Unremarkable) Cat Scan: Report Reviewed (Pelvic fracture) EKG: Report Reviewed Problem List - Problems (1) Alcohol withdrawal Code(s): F10.239 - ALCOHOL DEPENDENCE WITH WITHDRAWAL, UNSPECIFIED Qualifiers: Complication of substance-induced condition: uncomplicated Qualified Code(s ): F10.230 - Alcohol dependence with withdrawal, uncomplicated (2) Fall Code(s): W19.XXXA - UNSPECIFIED FALL, INITIAL ENCOUNTER Qualifiers: Encounter type: initial encounter Qualified Code(s): W19.XXXA - Unspecified fall, initial encounter (3) Hip pain Code(s): M25.559 - PAIN IN UNSPECIFIED HIP Qualifiers: Laterality: right Qualified Code(s): M25.551 - Pain in right hip (4) Asthma Code(s): J45.909 - UNSPECIFIED ASTHMA, UNCOMPLICATED (5) Diabetes mellitus Code(s): E11.9 - TYPE 2 DIABETES MELLITUS WITHOUT COMPLICATIONS (6) Peripheral neuropathy Code(s): G62.9 - POLYNEUROPATHY, UNSPECIFIED Assessment/Plan 1. Mechanical fall with ETOH intoxication resulting in right pelvic fracture 2. History of PTE and DVT (suspect hypercoagulable state) - on Coumadin currently subtherapeutic 3. Hypercholesterolemia 4. ETOH withdrawl 5. Bronchial asthma 6. Hypothyroidism PLAN: 1. Currently INR is subtherapeutic. May consider Heparin or Lovenox bridge while off Coumadin if further surgical intervention is planned. If no surgery is planned, would restart Coumadin to keep INR 2-3 2. Detox - continue Librium taper - will eventually need further assistance. He was counseled importance of enrolling in detox program especially with a fall risk on Coumadin 3. Continue Atorvastatin 4. Thyroid replacement therapy 5. Orthopedic input to follow 6. Patient is to follow up with Dr. Shakeel Lovell ([phone]) at [facility] cardiac standpoint once discharged Further plans are to follow Rashi Keene MD
[2017-04-22] MEDS ORDERED: PT OWN MED DRAWER 7, Y5N ONE ×5 (10:32→21:27)
[2017-04-22] MEDS: AMITRIPTYLINE HCL 25 MG TABLET (FP) PO SCH ×2 (10:42→22:34)
[2017-04-22] MEDS: MUPIROCIN CA 2% TOPICAL CREAM 15 GM TUBE TP SCH ×2 (10:42→22:48)
[2017-04-22] MEDS: PRENATAL VITAMINS W/ FOLIC ACID TABLET (FP) PO SCH (10:42)
[2017-04-22] MEDS ORDERED: HEPARIN NA (PORCINE) 5,000 UNITS/ML 1ML VIAL IVPUSH PRN ×2 (11:32)
[2017-04-22] MEDS ORDERED: morphine CARPU-JECT 2 MG/1 ML DISP.SYRIN IVPUSH PRN (12:08)
[2017-04-22] MEDS: CEFAZOLIN 500 MG in DEXTROSE 5%-WATER - 50 ML IVPB SCH ×2 (12:45→17:15)
[2017-04-22] MEDS: LACTOBACILLUS ACIDOPHILUS 1 EACH TAB (FP) PO SCH (13:29)
[2017-04-22] MEDS: HEPARIN INFUSION - 25,000 UNITS/500 ML INFUS.BAG IVPB SCH (13:30)
[2017-04-22] MEDS: GABAPENTIN 100 MG CAPSULE (FP) PO SCH ×2 (14:00→22:34)
--- NOTE | 2017-04-22 14:11 | CONSULT ---
Consult - text type - Consultation Consultation Note: FULL COSULT DICTATED IMP: RIGHT ACETABULAR FRACTURE PLAN: PWB, PT, SNF, FALL PRECAUTIONS
[2017-04-22 14:27] LABS: ALK PHOS 41 U/L (32-92)
[2017-04-22 14:42] LABS: CHOLESTEROL 163 mg/dl
[2017-04-22 16:09] LABS: THYROXINE (T4) 5.9 ug/dl (4.5-12.1)
[2017-04-22 16:16] LABS: THYROID STIMULATING HORMONE 3.81 uIU/ml (0.358-3.74)
[2017-04-22] MEDS: ALBUTEROL SO4 2.5/IPRATROPIUM 0.5 INH SOL 3 ML VIAL.NEB. NEB PRN (17:14)
[2017-04-22] MEDS: WARFARIN NA 2.5 MG TABLET (FP) PO SCH (17:15)
[2017-04-22] MEDS: ACETAMINOPHEN 325 MG TABLET (FP) PO PRN (17:16)
--- NOTE | 2017-04-22 17:32 | CON.PULM ---
Consult Consult Specialty:: PULMONARY Referred by:: GUMARO Reason for Consultation:: ASTHMA - History of Present Illness Chief Complaint: COUGH/WHEEZE/SOB History of Present Illness: 71 year old Male with past medical history of peripheral neuropathy, severe asthma on daily prednisone, hx of PEs and DVTs on lifelong coumadin, HLD, thyroid disorder, alcohol abuse, drinks heavily daily (last alcohol use yesterday) p/w fall. The patient had alcohol yesterday, and unclear if patient syncopized or fell (as he was intoxicated) and struck his head. Unclear if LOC, but patient was on the the ground. The patient's had helped the patient up to bed. Today, he was unable to ambulate or get out of bed 2/2 R hip pain and b/ l knee pain. Pt did fall on his knees yesterday. (last tetanus 3 years ago). Pt typically ambulates without a cane. EMS was activated.The patient denies feeling recently ill, but did notice he has been losing weight over the last year (25 lbs). Pt acknowledges that he has an alcohol problem and was diagnosed with fatty liver disease. - History Source History Provided By: Patient, Medical Record Limitations to Obtaining History: Clinical Condition - Past Medical History Pulmonary: Yes: Asthma Gastrointestinal: Yes: Other (Fatty liver) - Alcohol/Substance Use Hx Alcohol Use: Yes History of Substance Use: reports: None - Smoking History Smoking history: Never smoked Home Medications - Allergies Allergies/Adverse Reactions: Allergies Allergy/AdvReac Type Severity Reaction Status Date / Time No Known Allergies Allergy Verified 04/21/17 10:58 - Home Medications Home Medications: Ambulatory Orders Albuterol Sulfate Inhaler - [Ventolin Hfa Inhaler -] 1 - 2 inh PO PRN PRN Atorvastatin Ca [Lipitor] 10 mg PO HS 04/21/17 Beclomethasone Dipropionate [Qvar] 8.7 gm IH BID 04/21/17 Chlorthalidone [Hygroton -] 25 mg PO DAILY 04/21/17 Desloratadine 5 mg PO DAILY 04/21/17 Escitalopram Oxalate [Lexapro -] 20 mg PO DAILY 04/21/17 Fluticasone Propionate [Flovent Diskus] 50 mcg IH BID 04/21/17 Levocetirizine Dihydrochloride 5 mg PO DAILY 04/21/17 Levothyroxine [Synthroid -] 100 mcg PO DAILY 04/21/17 Omalizumab [Xolair -] 150 mg SQ ASDIR 04/21/17 Prednisone 10 mg PO ASDIR 04/21/17 Umeclidinium [place] [Incruse Ellipta] 62.5 mcg IH DAILY 04/21/17 Voriconazole [Vfend] 200 mg PO DAILY 04/21/17 Warfarin Sodium [Coumadin] 2.5 mg PO HS 04/21/17 Family Disease History - Family Disease History Family History: Unremarkable Review of Systems - Review of Systems Constitutional: reports: Lethargy, Loss of Appetite, Weakness Eyes: reports: No Symptoms HENT: reports: No Symptoms Neck: reports: Decreased ROM Cardiovascular: denies: Chest Pain Respiratory: reports: Cough, Exercise Intolerance, SOB, SOB on Exertion Gastrointestinal: denies: Abdominal Pain Genitourinary: denies: Burning Breasts: reports: No Symptoms Reported Musculoskeletal: reports: No Symptoms Physical Exam Vital Sings: Vital Signs Temperature 97.7 F 04/22/17 14:09 Pulse Rate 83 04/22/17 14:09 Respiratory Rate 20 04/22/17 14:09 Blood Pressure 117/57 04/22/17 14:09 O2 Sat by Pulse Oximetry (%) 96 04/22/17 14:09 Constitutional: Yes: Mild Distress, Pallor, Thin Eyes: Yes: WNL HENT: Yes: Normocephalic Neck: Yes: Trachea Midline Cardiovascular: Yes: Regular Rate and Rhythm Respiratory: Yes: Rhonchi (MILOD EXPIRATORY SCATTERED) Gastrointestinal: Yes: Normal Bowel Sounds Extremities: Yes: WNL Neurological: Yes: Tremors, Weakness Labs: CBC, BMP 04/22/17 08:10 04/22/17 08:10 REST REVIEWED Imaging - Results Chest X-ray: Report Reviewed, Image Reviewed Problem List - Problems (1) Asthma Code(s): J45.909 - UNSPECIFIED ASTHMA, UNCOMPLICATED (2) Alcohol dependence with uncomplicated withdrawal Code(s): F10.230 - ALCOHOL DEPENDENCE WITH WITHDRAWAL, UNCOMPLICATED (3) Alcohol withdrawal Code(s): F10.239 - ALCOHOL DEPENDENCE WITH WITHDRAWAL, UNSPECIFIED Qualifiers: Complication of substance-induced condition: uncomplicated Qualified Code(s ): F10.230 - Alcohol dependence with withdrawal, uncomplicated Assessment/Plan AGREE WITH DEEPA/LABA/LAMA/ICS/O2 NEEDED ORAL PREDNISONE COULD BE INCREASED IF SYMPTOMS PROGRESS ANTIBIOTICS PER PRIMARY TEAM ANTI COAGULATION FOR H/O VTE DAILY PEAK FLOW INCENTIVE ANISH ORTHO F/U FOR RIGHT ACETABULAR FX R KATIE OSEI
--- NOTE | 2017-04-22 17:53 | CONS ---
ORTHOPEDIC CONSULTATION/[facility] DATE OF CONSULTATION: 04/22/2017 HISTORY OF PRESENT ILLNESS: Patient is a 71-year-old male with a past medical history significant for DVT and pulmonary embolism, on Coumadin, as well as hypercholesterolemia, hypothyroidism, asthma, and EtOH abuse. Patient has had numerous falls due to his frequent intoxications. Patient fell the other day and has been complaining of pain in his right lower extremity with difficulty walking. Patient also suffers from peripheral neuropathy as well in bilateral lower extremities. PHYSICAL EXAMINATION: He has equal limb lengths of his lower extremities. He does have an ability to straight leg raise on the right, but it is somewhat painful, especially with palpation around the pubis. No tenderness along the ilium and the ischium and the sacrum and the SI joint. Some swelling proximally. No ecchymosis. Calf is soft, nontender. Negative Homans sign. Good motion of knee, ankle, and toes. X-ray and CT scan of his pelvis are reviewed, which shows a right acute acetabular fracture which is low down on the acetabulum, not in the weightbearing dome. No fracture of the hip is seen. IMPRESSION: Right acetabular fracture. PLAN: First, his EtOH abuse needs to be addressed and a Librium taper to ensure that he does not go into DTs. Secondly, patient can begin physical therapy with partial weightbearing with analgesics. Patient is an incredible fall risk due to frequent EtOH and peripheral neuropathy and being out of shape. Patient needs extended physical therapy and will placement in a SNF as he detoxes as well. I will follow the patient while he is in the hospital. TOI LEYVA M.D. [id number]
[2017-04-22 19:05] LABS: ACTIVATED PTT 44.4 SECONDS (24.0-38.9)
[2017-04-22 19:09] LABS: INR 1.16 (0.82-1.09); PROTHROMBIN TIME (PATIENT) 12.9 SEC (10.2-13.0)
[2017-04-22] MEDS: SODIUM CHLORIDE 0.9%/KCL 20 MEQ/1,000 ML INFUS.BAG IV SCH (22:04)
[2017-04-22] MEDS: MOMETASONE FUROATE 220 MCG/IH INHALER IH SCH (22:34)
[2017-04-22] MEDS: THIAMINE HCL 100 MG TABLET (FP) PO SCH (22:34)
[2017-04-22] MEDS: ATORVASTATIN CA 10 MG TABLET (FP) PO SCH (22:34)
[2017-04-22] MEDS: FAMOTIDINE 20 MG TABLET PO SCH (22:36)
[2017-04-23] MEDS: CEFAZOLIN 500 MG in DEXTROSE 5%-WATER - 50 ML IVPB SCH ×3 (02:00→19:42)
[2017-04-23] MEDS: chlordiazePOXIDE HCL 25 MG CAPSULE PO SCH ×2 (05:40→11:42)
[2017-04-23] MEDS: LEVOTHYROXINE NA 100 MCG TABLET (FP) PO SCH (06:46)
[2017-04-23] MEDS: GABAPENTIN 100 MG CAPSULE (FP) PO SCH ×3 (06:46→21:39)
--- NOTE | 2017-04-23 08:20 | PN ---
[facility] Progress Note (SOAP) Subjective: patient without complaints, pain improved on current medication regiemn of libirum, neurontin and elavil at night but appears sedated thsi am. no surgery planned for acetabular fracture. Objective: 04/23/17 08:16 Vital Signs - 24 hr 04/22/17 04/22/17 04/23/17 14:09 22:00 05:28 Temperature 97.7 F 97.8 F 98.6 F Pulse Rate 83 73 77 Respiratory 20 20 18 Rate Blood Pressure 117/57 151/73 132/70 O2 Sat by Pulse 96 99 95 Oximetry (%) Laboratory Tests 04/21/17 04/21/17 04/21/17 11:31 11:31 11:31 WBC 10.1 RBC 3.94 L Hgb 13.5 Hct 38.9 MCV 98.9 H MCH 34.4 H MCHC 34.8 RDW 13.6 Plt Count 151 MPV 9.1 Neutrophils % 80.8 Lymphocytes % 7.6 L Monocytes % 11.3 H Eosinophils % 0.1 Basophils % 0.2 PT with INR 21.5 H INR 1.95 H PTT (Actin FS) 29.3 Sodium 132 L Potassium 4.3 Chloride 97 L Carbon Dioxide 23 Anion Gap 12 BUN 22 H Creatinine 0.7 Creat Clearance w eGFR > 60 Random Glucose 120 H Hemoglobin A1c % Calcium 9.4 Phosphorus 3.3 Magnesium 1.8 Total Bilirubin 1.2 H AST 59 H ALT 50 H Alkaline Phosphatase 52 Troponin I Total Protein 6.6 Albumin 4.1 Triglycerides Cholesterol Total LDL Cholesterol HDL Cholesterol Lipase 22 Vitamin B12 TSH Urine Color Urine Appearance Urine pH Ur Specific Kiefer Urine Protein Urine Glucose (UA) Urine Ketones Urine Blood Urine Nitrite Urine Bilirubin Urine Urobilinogen Ur Leukocyte Esterase Opiates Screen Methadone Screen Barbiturate Screen Phencyclidine Screen Ur Amphetamines Screen MDMA (Ecstasy) Screen Benzodiazepines Screen Cocaine Screen U Marijuana (THC) Screen Alcohol, Quantitative 04/21/17 04/21/17 04/21/17 11:31 14:41 18:15 WBC RBC Hgb Hct MCV MCH MCHC RDW Plt Count MPV Neutrophils % Lymphocytes % Monocytes % Eosinophils % Basophils % PT with INR INR PTT (Actin FS) Sodium Potassium Chloride Carbon Dioxide Anion Gap BUN Creatinine Creat Clearance w eGFR Random Glucose Hemoglobin A1c % Calcium Phosphorus Magnesium Total Bilirubin AST ALT Alkaline Phosphatase Troponin I < 0.03 L 0.02 Total Protein Albumin Triglycerides Cholesterol Total LDL Cholesterol HDL Cholesterol Lipase Vitamin B12 TSH Urine Color Yellow Urine Appearance Clear Urine pH 6.0 Ur Specific Kiefer 1.025 Urine Protein Trace Urine Glucose (UA) Negative Urine Ketones 3+ H Urine Blood Negative Urine Nitrite Negative Urine Bilirubin 1+ H Urine Urobilinogen 2.0 Ur Leukocyte Esterase Negative Opiates Screen Methadone Screen Barbiturate Screen Phencyclidine Screen Ur Amphetamines Screen MDMA (Ecstasy) Screen Benzodiazepines Screen Cocaine Screen U Marijuana (THC) Screen Alcohol, Quantitative < 5.0 L 04/21/17 04/22/17 04/22/17 21:50 01:00 07:40 WBC RBC Hgb Hct MCV MCH MCHC RDW Plt Count MPV Neutrophils % Lymphocytes % Monocytes % Eosinophils % Basophils % PT with INR INR PTT (Actin FS) Sodium Potassium Chloride Carbon Dioxide Anion Gap BUN Creatinine Creat Clearance w eGFR Random Glucose Hemoglobin A1c % Calcium Phosphorus Magnesium Total Bilirubin AST ALT Alkaline Phosphatase Troponin I < 0.02 Total Protein Albumin Triglycerides Cholesterol Total LDL Cholesterol HDL Cholesterol Lipase Vitamin B12 675 TSH Urine Color Urine Appearance Urine pH Ur Specific Kiefer Urine Protein Urine Glucose (UA) Urine Ketones Urine Blood Urine Nitrite Urine Bilirubin Urine Urobilinogen Ur Leukocyte Esterase Opiates Screen Negative Methadone Screen Negative Barbiturate Screen Negative Phencyclidine Screen Negative Ur Amphetamines Screen Negative MDMA (Ecstasy) Screen Negative Benzodiazepines Screen Positive Cocaine Screen Negative U Marijuana (THC) Screen Negative Alcohol, Quantitative 04/22/17 04/22/17 04/22/17 07:50 07:50 08:10 WBC 6.2 D RBC 3.47 L Hgb 11.8 D Hct 34.7 L MCV 100.2 H MCH 34.1 H MCHC 34.0 RDW 12.9 Plt Count 115 L D MPV 8.7 Neutrophils % 73.8 Lymphocytes % 14.9 D Monocytes % 10.4 H Eosinophils % 0.3 D Basophils % 0.6 PT with INR INR PTT (Actin FS) Sodium Potassium Chloride Carbon Dioxide Anion Gap BUN Creatinine Creat Clearance w eGFR Random Glucose Hemoglobin A1c % Calcium Phosphorus 2.5 D Magnesium Total Bilirubin AST ALT Alkaline Phosphatase Troponin I Total Protein Albumin Triglycerides Cholesterol Total LDL Cholesterol HDL Cholesterol Lipase Vitamin B12 TSH 3.81 H Urine Color Urine Appearance Urine pH Ur Specific Kiefer Urine Protein Urine Glucose (UA) Urine Ketones Urine Blood Urine Nitrite Urine Bilirubin Urine Urobilinogen Ur Leukocyte Esterase Opiates Screen Methadone Screen Barbiturate Screen Phencyclidine Screen Ur Amphetamines Screen MDMA (Ecstasy) Screen Benzodiazepines Screen Cocaine Screen U Marijuana (THC) Screen Alcohol, Quantitative 04/22/17 04/22/17 04/22/17 08:10 08:10 08:10 WBC RBC Hgb Hct MCV MCH MCHC RDW Plt Count MPV Neutrophils % Lymphocytes % Monocytes % Eosinophils % Basophils % PT with INR 15.3 H INR 1.38 H PTT (Actin FS) Sodium 138 Potassium 3.4 L D Chloride 104 Carbon Dioxide 24 Anion Gap 10 BUN 12 D Creatinine 0.6 Creat Clearance w eGFR > 60 Random Glucose 94 D Hemoglobin A1c % 6.2 H Calcium 7.9 L Phosphorus Magnesium 1.7 L Total Bilirubin 1.8 H D AST 36 D ALT 33 D Alkaline Phosphatase 41 D Troponin I Total Protein 5.2 L D Albumin 3.2 L D Triglycerides 82 Cholesterol 163 Total LDL Cholesterol 70 HDL Cholesterol 76 Lipase Vitamin B12 TSH Urine Color Urine Appearance Urine pH Ur Specific Kiefer Urine Protein Urine Glucose (UA) Urine Ketones Urine Blood Urine Nitrite Urine Bilirubin Urine Urobilinogen Ur Leukocyte Esterase Opiates Screen Methadone Screen Barbiturate Screen Phencyclidine Screen Ur Amphetamines Screen MDMA (Ecstasy) Screen Benzodiazepines Screen Cocaine Screen U Marijuana (THC) Screen Alcohol, Quantitative 04/22/17 04/23/17 18:44 02:00 WBC RBC Hgb Hct MCV MCH MCHC RDW Plt Count MPV Neutrophils % Lymphocytes % Monocytes % Eosinophils % Basophils % PT with INR 12.9 INR 1.16 PTT (Actin FS) 44.4 H D 59.9 H Sodium Potassium Chloride Carbon Dioxide Anion Gap BUN Creatinine Creat Clearance w eGFR Random Glucose Hemoglobin A1c % Calcium Phosphorus Magnesium Total Bilirubin AST ALT Alkaline Phosphatase Troponin I Total Protein Albumin Triglycerides Cholesterol Total LDL Cholesterol HDL Cholesterol Lipase Vitamin B12 TSH Urine Color Urine Appearance Urine pH Ur Specific Kiefer Urine Protein Urine Glucose (UA) Urine Ketones Urine Blood Urine Nitrite Urine Bilirubin Urine Urobilinogen Ur Leukocyte Esterase Opiates Screen Methadone Screen Barbiturate Screen Phencyclidine Screen Ur Amphetamines Screen MDMA (Ecstasy) Screen Benzodiazepines Screen Cocaine Screen U Marijuana (THC) Screen Alcohol, Quantitative hypoglycemia, elevated hb a1c, low mg, elevated lfts, low alb Assessment: 04/23/17 08:17 withdrawal sx well controlled with current detox regimen, cont detox, improved pain manangement of neuropathic pain which was keeping him up at night - alcoholic/diabetic???, recommend continued k supplementation, supplement mg, ensure plus malnutirition 2/2 substance use noted, pt. will d/c ambien and prn libirum as well as elavil to decrease night time sedation, mild sedation is however indicated in thsi patinet during the detox regimen. cont MVI
[2017-04-23 08:44] LABS: BASOPHIL 0.7 % (0-2.0); MCH 34.5 pg (25.7-33.7); MCHC 34.5 g/dl (32.0-35.9); MEAN CELL VOLUME 99.9 fl (80-96); MEAN PLT VOLUME 8.9 fl (7.5-11.1); NEUTROPHILS 68.3 % (42.8-82.8); PLATELET COUNT 114 K/MM3 (134-434); RDW 13.3 % (11.9-15.9); WHITE BLOOD COUNT 4.7 K/mm3 (4.0-10.8)
[2017-04-23 08:57] LABS: INR 1.13 (0.82-1.09); PROTHROMBIN TIME (PATIENT) 12.6 SEC (10.2-13.0)
[2017-04-23 09:02] LABS: ALBUMIN 3.3 g/dl (3.5-5.0); ALK PHOS 44 U/L (32-92); ANION GAP 4 (8-16); BILIRUBIN,TOTAL 1.1 mg/dl (0.2-1.0); CALCIUM 8.4 mg/dl (8.4-10.2); CO2 27 mmol/L (22-28); CREATININE 0.6 mg/dl (0.6-1.3); GLUCOSE,RANDOM 117 mg/dl (74-106); MAGNESIUM 1.9 mg/dL (1.8-2.4); SGOT/AST 31 U/L (10-42); SGPT/ALT 27 U/L (10-40); TOT PROT 5.5 g/dl (6.4-8.3)
--- NOTE | 2017-04-23 09:51 | PN ---
Progress Note (short form) - Note Progress Note: Ortho Pt seen and examined s/p right acetabular fx + ttp, decr rom nvi a/p PT PWB librium pain control will follow d/w Dr. Nowak
[2017-04-23] MEDS: ESCITALOPRAM OXALATE 20 MG TABLET (FP) PO SCH (09:58)
[2017-04-23] MEDS: PRENATAL VITAMINS W/ FOLIC ACID TABLET (FP) PO SCH (09:58)
[2017-04-23] MEDS: predniSONE 10 MG TABLET (UD) PO SCH (09:58)
[2017-04-23] MEDS: FAMOTIDINE 20 MG TABLET PO SCH ×2 (09:58→21:31)
[2017-04-23] MEDS: MUPIROCIN CA 2% TOPICAL CREAM 15 GM TUBE TP SCH ×2 (09:58→21:35)
[2017-04-23] MEDS ORDERED: POTASSIUM CHLORIDE TABS 20 MEQ TABLET.ER (FP) PO SCH (10:00)
[2017-04-23] MEDS: LACTOBACILLUS ACIDOPHILUS 1 EACH TAB (FP) PO SCH (10:02)
--- NOTE | 2017-04-23 10:56 | PN ---
Physical Exam: SUBJECTIVE: Patient seen and examined, reports feeling well, reports pain to the right lower extremity upon movement, patient denies any paresthesia. OBJECTIVE:Patient is a 71 y/o male with a past medical history of DVT/PE, COPD, peripheral vascular disease, and hypothyroidism. Patient was admitted from the emergency department for a right acetabular pelvic fracture. PCP: Dr Shakeel Lovell Vital Signs Period Temp Pulse Resp BP Sys/Mello Pulse Ox Last 24 Hr 97.7 F-98.6 F 73-83 18-20 117-151/57-73 95-99 GENERAL: The patient is awake, alert, and fully oriented, in no acute distress. HEAD: Normal with no signs of trauma. EYES: PERRL, extraocular movements intact, sclera anicteric, conjunctiva clear. No ptosis. ENT: Ears normal, nares patent, oropharynx clear without exudates, moist mucous membranes. NECK: Trachea midline, full range of motion, supple. LUNGS: Breath sounds equal, clear to auscultation bilaterally, no wheezes, no crackles, no accessory muscle use. HEART: Regular rate and rhythm, S1, S2 without murmur, rub or gallop. ABDOMEN: Soft, nontender, nondistended, normoactive bowel sounds, no guarding, no rebound, no hepatosplenomegaly, no masses. EXTREMITIES: 2+ pulses, warm, well-perfused, no edema. echymosis to the right lateral proximal thigh with point tenderness, venous changes to bilateral lower extremities. NEUROLOGICAL: Cranial nerves II through XII grossly intact. Normal speech, gait not observed. PSYCH: Normal mood, normal affect. SKIN: Warm, dry, normal turgor, no rashes or lesions noted, echymosis noted to the back and billateral lower extremities. abrasion noted to bilateral knees Laboratory Results - last 24 hr 04/22/17 04/22/17 04/22/17 07:40 07:50 07:50 WBC RBC Hgb Hct MCV MCH MCHC RDW Plt Count MPV Neutrophils % Lymphocytes % Monocytes % Eosinophils % Basophils % PT with INR INR PTT (Actin FS) Sodium Potassium Chloride Carbon Dioxide Anion Gap BUN Creatinine Creat Clearance w eGFR Random Glucose Calcium Phosphorus 2.5 D Magnesium Total Bilirubin AST ALT Alkaline Phosphatase Total Protein Albumin Triglycerides Cholesterol Total LDL Cholesterol HDL Cholesterol Vitamin B12 675 TSH 3.81 H 04/22/17 04/22/17 04/23/17 08:10 18:44 02:00 WBC RBC Hgb Hct MCV MCH MCHC RDW Plt Count MPV Neutrophils % Lymphocytes % Monocytes % Eosinophils % Basophils % PT with INR 12.9 INR 1.16 PTT (Actin FS) 44.4 H D 59.9 H Sodium Potassium Chloride Carbon Dioxide Anion Gap BUN Creatinine Creat Clearance w eGFR Random Glucose Calcium Phosphorus Magnesium Total Bilirubin AST ALT Alkaline Phosphatase 41 D Total Protein Albumin Triglycerides 82 Cholesterol 163 Total LDL Cholesterol 70 HDL Cholesterol 76 Vitamin B12 TSH 04/23/17 04/23/17 04/23/17 08:21 08:21 08:21 WBC 4.7 RBC 3.72 L Hgb 12.8 Hct 37.2 MCV 99.9 H MCH 34.5 H MCHC 34.5 RDW 13.3 Plt Count 114 L MPV 8.9 Neutrophils % 68.3 Lymphocytes % 20.0 D Monocytes % 9.0 Eosinophils % 2.0 D Basophils % 0.7 PT with INR 12.6 INR 1.13 PTT (Actin FS) Sodium 140 Potassium 3.7 Chloride 109 H Carbon Dioxide 27 Anion Gap 4 L BUN 9 D Creatinine 0.6 Creat Clearance w eGFR > 60 Random Glucose 117 H D Calcium 8.4 Phosphorus Magnesium 1.9 Total Bilirubin 1.1 H D AST 31 ALT 27 Alkaline Phosphatase 44 Total Protein 5.5 L Albumin 3.3 L Triglycerides Cholesterol Total LDL Cholesterol HDL Cholesterol Vitamin B12 TSH Active Medications Generic Name Dose Route Start Last Admin Trade Name Freq PRN Reason Stop Dose Admin Acetaminophen 650 mg 04/22/17 11:40 04/22/17 17:16 Tylenol - PO 650 mg Q4H PRN Administration FEVER OR PAIN Albuterol/Ipratropium 1 amp 04/21/17 15:59 04/22/17 17:14 Duoneb - NEB 1 amp Q6H PRN Administration SHORTNESS OF BREATH Atorvastatin Calcium 10 mg 04/21/17 22:00 04/22/17 22:34 Lipitor - PO 10 mg HS NIKKI Administration Chlordiazepoxide HCl 25 mg 04/22/17 17:00 04/23/17 05:40 Librium - PO 04/23/17 11:01 25 mg [id number] NIKKI Administration Chlordiazepoxide HCl 15 mg 04/23/17 17:00 Librium - PO 04/24/17 11:01 [id number] NIKKI Escitalopram Oxalate 20 mg 04/22/17 10:00 04/23/17 09:58 Lexapro - PO 20 mg DAILY NIKKI Administration Famotidine 20 mg 04/22/17 22:00 04/23/17 09:58 Pepcid - PO 20 mg BID NIKKI Administration Gabapentin 100 mg 04/22/17 14:00 04/23/17 06:46 Neurontin - PO 100 mg TID NIKKI Administration Heparin Sodium (Porcine) 1,000 unit 04/22/17 11:32 Heparin - IVPUSH PRN PRN Heparin Heparin Sodium (Porcine) 5,000 unit 04/22/17 11:32 Heparin - IVPUSH PRN PRN Heparin Heparin Sodium/Dextrose 25,000 units in 500 mls @ 20 mls/hr 04/22/17 11:45 04:00 Heparin Infusion - IVPB 1,100 units/hr TITR NIKKI 22 mls/hr Protocol Titration 1,000 UNITS/HR Potassium Chloride/Sodium Chloride 20 meq in 1,000 mls @ 75 mls/hr 04/22/17 11 :45 04/22/17 22:04 Ns+20 Meq Kcl - IV 04/24/17 01:04 75 mls/hr ASDIR NIKKI Administration Cefazolin Sodium 500 mg/ 50 mls @ 50 mls/30 min 04/22/17 12:45 04/23/17 09:17 Dextrose IVPB 50 mls/30 min Q8H-IV NIKKI Administration Lactobacillus Acidophilus 1 tab 04/22/17 13:00 04/23/17 10:02 Bacid - PO 1 tab DAILY NIKKI Administration Levothyroxine Sodium 100 mcg 04/22/17 07:00 04/23/17 06:46 Synthroid - PO 100 mcg DAILY@0700 NIKKI Administration Mometasone Furoate 1 puff 04/21/17 22:00 04/22/17 22:34 Asmanex 220mcg - IH 1 puff HS NIKKI Administration Morphine Sulfate 2 mg 04/22/17 12:08 Morphine Injection - IVPUSH Q4H PRN PAIN Mupirocin 1 applic 04/22/17 10:00 04/23/17 09:58 Bactroban 2% Cream - TP 1 applic BID NIKKI Administration Prednisone 10 mg 04/22/17 10:00 04/23/17 09:58 Deltasone - PO 10 mg DAILY NIKKI Administration Multivit/Folic Acid/Iron 1 tab 04/22/17 10:00 04/23/17 09:58 Vitamins (Sjr) - PO 1 tab DAILY NIKKI Administration Thiamine HCl 100 mg 04/21/17 22:00 04/22/17 22:34 Vitamin B1 - PO 100 mg HS NIKKI Administration Warfarin Sodium 2.5 mg 04/21/17 18:00 04/22/17 17:15 Coumadin - PO 2.5 mg DAILY@1800 NIKKI Administration Microbiology 04/21/17 18:25 Urine - Urine Clean Catch Urine Culture - Final Contaminated: Please Repeat Imaging: Head CT: no evidence of acute intracranial pathology Hip Pelvix Xray: no fracture or dislocation of right hip Knee xray: no evidence of acute fracture ct of pelvis:acute right acetabular fracture ASSESSMENT/PLAN: 1) MS right acetabular fracture - continue prn morphine and tylenol #3 - evaluated by Dr Nowak, orthopedist, recommend physical therapy weight bearing as tolerated, no surgical intervention at this time - continue bactroban and ancef for abrasion to bilateral knees - serial neurovascular checks 2) CARDIOVASCULAR questionable synopal episode - troponin x 3 wnl - no events on cardiac monitoring hyperlipidemia - continue lipitor 3) pulmonary copd - no acute excerbation at this time, continue home dose prednisone - continue combivent and asmanex - pulmonary consulted and following 4) hematology hx dvt/pe - on coumadin, subtherepeutic continue heparin gtt - scd/jacob 5) psych etoh - continue librium protocol - Dr Brown, robotics specialist consulted and following anxiety/depression - continue lexapro 6) endo hypothyroidism -continue synthroid, pending tsh F.E.N. Fluids: NS w/20meg kci @75ml/hr x 2 bags Electrolytes: monitor Nutriton: regular diet ppx - heparin with coumdin bridge - pepcid - scd/jacob Disposition: full code. Requires inpatient monitoring Visit type - Emergency Visit Emergency Visit: Yes ED Registration Date: 04/21/17 Care time: The patient presented to the Emergency Department on the above date and was hospitalized for further evaluation of their emergent condition. - New Patient This patient is new to me today: Yes Date on this admission: 04/22/17 - Critical Care Critical Care patient: No
[2017-04-23] MEDS ORDERED: WARFARIN NA 2.5 MG TABLET (FP) PO SCH (11:06)
[2017-04-23] MEDS ORDERED: ACETAMINOPHEN WITH CODEINE 300MG/30MG TABLET PO PRN (11:46)
[2017-04-23] MEDS: HEPARIN INFUSION - 25,000 UNITS/500 ML INFUS.BAG IVPB SCH (12:41)
[2017-04-23] MEDS ORDERED: WARFARIN NA 3 MG TABLET PO SCH (18:00)
[2017-04-23] MEDS: chlordiazePOXIDE 5 MG CAPSULE PO SCH ×2 (19:38→22:57)
[2017-04-23] MEDS: SODIUM CHLORIDE 0.9%/KCL 20 MEQ/1,000 ML INFUS.BAG IV SCH (19:39)
[2017-04-23] MEDS ORDERED: PT OWN MED DRAWER 7, Y5N ONE (19:41)
--- NOTE | 2017-04-23 20:20 | EKG ---
Test Reason : Blood Pressure : / mmHG Vent. Rate : 085 BPM Atrial Rate : 085 BPM P-R Int : 214 ms QRS Dur : 084 ms QT Int : 368 ms P-R-T Axes : 066 055 078 degrees QTc Int : 437 ms SINUS RHYTHM WITH 1ST DEGREE A-V BLOCK OTHERWISE NORMAL ECG NO PREVIOUS ECGS AVAILABLE Confirmed by LAYTON MCCALL MD ([id number]) on 04/23/2017 8:20:08 PM Referred By: ROGELIO Confirmed By:LAYTON MCCALL MD
[2017-04-23] MEDS: MOMETASONE FUROATE 220 MCG/IH INHALER IH SCH (21:28)
[2017-04-23] MEDS: ATORVASTATIN CA 10 MG TABLET (FP) PO SCH (21:31)
[2017-04-23] MEDS: THIAMINE HCL 100 MG TABLET (FP) PO SCH (21:31)
[2017-04-23] MEDS: ALBUTEROL SO4 2.5/IPRATROPIUM 0.5 INH SOL 3 ML VIAL.NEB. NEB PRN (22:57)
[2017-04-23] MEDS: ACETAMINOPHEN 325 MG TABLET (FP) PO PRN (22:59)
[2017-04-24] MEDS ORDERED: PT OWN MED DRAWER 7, Y5N ONE ×4 (01:22→21:50)
[2017-04-24] MEDS: CEFAZOLIN 500 MG in DEXTROSE 5%-WATER - 50 ML IVPB SCH ×3 (01:29→18:25)
[2017-04-24] MEDS: chlordiazePOXIDE HCL 25 MG CAPSULE PO PRN ×2 (02:54→09:52)
[2017-04-24] MEDS: chlordiazePOXIDE 5 MG CAPSULE PO SCH ×2 (04:42→11:22)
[2017-04-24] MEDS: GABAPENTIN 100 MG CAPSULE (FP) PO SCH ×2 (05:04→14:31)
[2017-04-24] MEDS: LEVOTHYROXINE NA 100 MCG TABLET (FP) PO SCH (06:16)
[2017-04-24 08:57] LABS: ANION GAP 7 (8-16); CALCIUM 8.9 mg/dl (8.4-10.2); CO2 23 mmol/L (22-28); CREATININE 0.5 mg/dl (0.6-1.3); GLUCOSE,RANDOM 98 mg/dl (74-106); MAGNESIUM 1.6 mg/dL (1.8-2.4); PHOSPHOROUS 3.4 mg/dl (2.5-4.6)
[2017-04-24 09:02] LABS: BASOPHIL 0.5 % (0-2.0); EOSINOPHIL 1.2 % (0-4.5); MCH 35.3 pg (25.7-33.7); MCHC 35.5 g/dl (32.0-35.9); MEAN CELL VOLUME 99.4 fl (80-96); MEAN PLT VOLUME 9.1 fl (7.5-11.1); NEUTROPHILS 75.8 % (42.8-82.8); PLATELET COUNT 120 K/MM3 (134-434); RDW 12.8 % (11.9-15.9); WHITE BLOOD COUNT 7.6 K/mm3 (4.0-10.8)
[2017-04-24] MEDS ORDERED: MAGNESIUM SULFATE 2 GM in SODIUM CHLORIDE 100 ML IVPB ONE (09:09)
[2017-04-24] MEDS ORDERED: POTASSIUM CHLORIDE TABS 20 MEQ TABLET.ER (FP) PO ONE (09:30)
[2017-04-24] MEDS ORDERED: MAGNESIUM SULF 50% (8.12 MEQ/2 ML-1 GM VIAL) IVPB ONE (09:45)
[2017-04-24] MEDS: FAMOTIDINE 20 MG TABLET PO SCH ×2 (09:51→22:10)
[2017-04-24] MEDS: LACTOBACILLUS ACIDOPHILUS 1 EACH TAB (FP) PO SCH (09:52)
[2017-04-24] MEDS: predniSONE 10 MG TABLET (UD) PO SCH (09:52)
[2017-04-24] MEDS: ESCITALOPRAM OXALATE 20 MG TABLET (FP) PO SCH (09:52)
[2017-04-24] MEDS: PRENATAL VITAMINS W/ FOLIC ACID TABLET (FP) PO SCH (09:59)
[2017-04-24] MEDS: MUPIROCIN CA 2% TOPICAL CREAM 15 GM TUBE TP SCH ×2 (10:00→22:10)
--- NOTE | 2017-04-24 10:26 | PN ---
Progress Note, Physician History of Present Illness: PULMONARY ALERT,NAD,-TACHYPNEA,-DYSPNEA - Current Medication List Current Medications: Active Medications Acetaminophen (Tylenol -) 650 mg PO Q4H PRN PRN Reason: FEVER OR PAIN Last Admin: 04/23/17 22:59 Dose: 650 mg Acetaminophen/Codeine Phosphate (Tylenol # 3 -) 1 tab PO Q6H PRN PRN Reason: FEVER OR PAIN Albuterol/Ipratropium (Duoneb -) 1 amp NEB Q6H PRN PRN Reason: SHORTNESS OF BREATH Last Admin: 04/23/17 22:57 Dose: 1 amp Atorvastatin Calcium (Lipitor -) 10 mg PO HS NIKKI Last Admin: 04/23/17 21:31 Dose: 10 mg Chlordiazepoxide HCl (Librium -) 15 mg PO [id number] NIKKI Stop: 04/24/17 11:01 Last Admin: 04/24/17 04:42 Dose: 15 mg Chlordiazepoxide HCl (Librium -) 25 mg PO Q6H PRN PRN Reason: WITHDRAWAL(CONT SUBST) Last Admin: 04/24/17 09:52 Dose: 25 mg Escitalopram Oxalate (Lexapro -) 20 mg PO DAILY NIKKI Last Admin: 04/24/17 09:52 Dose: 20 mg Famotidine (Pepcid -) 20 mg PO BID NIKKI Last Admin: 04/24/17 09:51 Dose: 20 mg Gabapentin (Neurontin -) 100 mg PO TID NIKKI Last Admin: 04/24/17 05:04 Dose: 100 mg Heparin Sodium (Porcine) (Heparin -) 1,000 unit IVPUSH PRN PRN PRN Reason: Heparin Heparin Sodium (Porcine) (Heparin -) 5,000 unit IVPUSH PRN PRN PRN Reason: Heparin Heparin Sodium/Dextrose (Heparin Infusion -) 25,000 units in 500 mls @ 20 mls/ hr IVPB TITR NIKKI; 1,000 UNITS/HR PRN Reason: Protocol Last Admin: 04/23/17 12:41 Dose: 1,100 units/hr, 22 mls/hr Cefazolin Sodium 500 mg/ (Dextrose) 50 mls @ 50 mls/30 min IVPB Q8H-IV NIKKI Last Admin: 04/24/17 10:00 Dose: 50 mls/30 min Lactobacillus Acidophilus (Bacid -) 1 tab PO DAILY NIKKI Last Admin: 04/24/17 09:52 Dose: 1 tab Levothyroxine Sodium (Synthroid -) 100 mcg PO DAILY@0700 [facility] Last Admin: 04/24/17 06:16 Dose: 100 mcg Mometasone Furoate (Asmanex 220mcg -) 1 puff IH [facility] Last Admin: 04/23/17 21:28 Dose: 1 puff Morphine Sulfate (Morphine Injection -) 2 mg IVPUSH Q4H PRN PRN Reason: PAIN Mupirocin (Bactroban 2% Cream -) 1 applic TP BID [facility] Last Admin: 04/24/17 10:00 Dose: 1 applic Prednisone (Deltasone -) 10 mg PO DAILY [facility] Last Admin: 04/24/17 09:52 Dose: 10 mg Multivit/Folic Acid/Iron ( Vitamins (Sjr) -) 1 tab PO DAILY [facility] Last Admin: 04/24/17 09:59 Dose: 1 tab Thiamine HCl (Vitamin B1 -) 100 mg PO [facility] Last Admin: 04/23/17 21:31 Dose: 100 mg Warfarin Sodium (Coumadin -) 3 mg PO DAILY@1800 [facility] Last Admin: 04/23/17 19:38 Dose: 3 mg - Objective Vital Signs: Vital Signs Temperature 98.6 F 04/24/17 09:50 Pulse Rate 95 H 04/24/17 09:50 Respiratory Rate 18 04/24/17 09:50 Blood Pressure 153/85 04/24/17 09:50 O2 Sat by Pulse Oximetry (%) 96 04/23/17 23:00 Constitutional: Yes: Calm, Thin Eyes: Yes: WNL HENT: Yes: WNL Neck: Yes: WNL Cardiovascular: Yes: Regular Rate and Rhythm, S1, S2 Respiratory: Yes: Diminished Gastrointestinal: Yes: Normal Bowel Sounds, Soft Extremities: Yes: WNL Edema: No Labs: CBC, BMP 04/24/17 07:30 04/24/17 07:30 INR, PTT INR 1.13 (0.82-1.09) 04/23/17 08:21 Assessment/Plan Problem List - Problems (1) Asthma Code(s): J45.909 - UNSPECIFIED ASTHMA, UNCOMPLICATED (2) Alcohol dependence with uncomplicated withdrawal Code(s): F10.230 - ALCOHOL DEPENDENCE WITH WITHDRAWAL, UNCOMPLICATED (3) Alcohol withdrawal Code(s): F10.239 - ALCOHOL DEPENDENCE WITH WITHDRAWAL, UNSPECIFIED Qualifiers: Complication of substance-induced condition: uncomplicated Qualified Code(s ): F10.230 - Alcohol dependence with withdrawal, uncomplicated 4 LEFT ACETABULAR FX 5 H/O DVT/PE Assessment/Plan INHALED BRONCHODILATORS ORAL PREDNISONE ANTIBIOTICS ANTI COAGULATION DAILY [place] FLOW INCENTIVE ANISH DR MARQUIS
--- NOTE | 2017-04-24 10:47 | PN ---
S Progress Note (SOAP) Subjective: saeedn c/o continued temors, nurse at bedside reported he needs to continue detox and has been administering prn medications. 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 even when he was actively drinking Objective: 04/24/17 10:45 Vital Signs - 8 hr 04/24/17 04/24/17 06:00 09:50 Temperature 98.8 F 98.6 F Pulse Rate 99 H 95 H Respiratory 19 18 Rate Blood Pressure 139/69 153/85 Laboratory Tests 04/21/17 04/21/17 04/21/17 11:31 11:31 11:31 WBC 10.1 RBC 3.94 L Hgb 13.5 Hct 38.9 MCV 98.9 H MCH 34.4 H MCHC 34.8 RDW 13.6 Plt Count 151 MPV 9.1 Neutrophils % 80.8 Lymphocytes % 7.6 L Monocytes % 11.3 H Eosinophils % 0.1 Basophils % 0.2 PT with INR 21.5 H INR 1.95 H PTT (Actin FS) 29.3 Sodium 132 L Potassium 4.3 Chloride 97 L Carbon Dioxide 23 Anion Gap 12 BUN 22 H Creatinine 0.7 Creat Clearance w eGFR > 60 Random Glucose 120 H Hemoglobin A1c % Calcium 9.4 Phosphorus 3.3 Magnesium 1.8 Total Bilirubin 1.2 H AST 59 H ALT 50 H Alkaline Phosphatase 52 Troponin I Total Protein 6.6 Albumin 4.1 Triglycerides Cholesterol Total LDL Cholesterol HDL Cholesterol Lipase 22 Vitamin B12 TSH Urine Color Urine Appearance Urine pH Ur Specific [place] Urine Protein Urine Glucose (UA) Urine Ketones Urine Blood Urine Nitrite Urine Bilirubin Urine Urobilinogen Ur Leukocyte Esterase Opiates Screen Methadone Screen Barbiturate Screen Phencyclidine Screen Ur Amphetamines Screen MDMA (Ecstasy) Screen Benzodiazepines Screen Cocaine Screen U Marijuana (THC) Screen Alcohol, Quantitative 04/21/17 04/21/17 04/21/17 11:31 14:41 18:15 WBC RBC Hgb Hct MCV MCH MCHC RDW Plt Count MPV Neutrophils % Lymphocytes % Monocytes % Eosinophils % Basophils % PT with INR INR PTT (Actin FS) Sodium Potassium Chloride Carbon Dioxide Anion Gap BUN Creatinine Creat Clearance w eGFR Random Glucose Hemoglobin A1c % Calcium Phosphorus Magnesium Total Bilirubin AST ALT Alkaline Phosphatase Troponin I < 0.03 L 0.02 Total Protein Albumin Triglycerides Cholesterol Total LDL Cholesterol HDL Cholesterol Lipase Vitamin B12 TSH Urine Color Yellow Urine Appearance Clear Urine pH 6.0 Ur Specific [place] 1.025 Urine Protein Trace Urine Glucose (UA) Negative Urine Ketones 3+ H Urine Blood Negative Urine Nitrite Negative Urine Bilirubin 1+ H Urine Urobilinogen 2.0 Ur Leukocyte Esterase Negative Opiates Screen Methadone Screen Barbiturate Screen Phencyclidine Screen Ur Amphetamines Screen MDMA (Ecstasy) Screen Benzodiazepines Screen Cocaine Screen U Marijuana (THC) Screen Alcohol, Quantitative < 5.0 L 04/21/17 04/22/17 04/22/17 21:50 01:00 07:40 WBC RBC Hgb Hct MCV MCH MCHC RDW Plt Count MPV Neutrophils % Lymphocytes % Monocytes % Eosinophils % Basophils % PT with INR INR PTT (Actin FS) Sodium Potassium Chloride Carbon Dioxide Anion Gap BUN Creatinine Creat Clearance w eGFR Random Glucose Hemoglobin A1c % Calcium Phosphorus Magnesium Total Bilirubin AST ALT Alkaline Phosphatase Troponin I < 0.02 Total Protein Albumin Triglycerides Cholesterol Total LDL Cholesterol HDL Cholesterol Lipase Vitamin B12 675 TSH Urine Color Urine Appearance Urine pH Ur Specific [place] Urine Protein Urine Glucose (UA) Urine Ketones Urine Blood Urine Nitrite Urine Bilirubin Urine Urobilinogen Ur Leukocyte Esterase Opiates Screen Negative Methadone Screen Negative Barbiturate Screen Negative Phencyclidine Screen Negative Ur Amphetamines Screen Negative MDMA (Ecstasy) Screen Negative Benzodiazepines Screen Positive Cocaine Screen Negative U Marijuana (THC) Screen Negative Alcohol, Quantitative 04/22/17 04/22/17 04/22/17 07:50 07:50 08:10 WBC 6.2 D RBC 3.47 L Hgb 11.8 D Hct 34.7 L MCV 100.2 H MCH 34.1 H MCHC 34.0 RDW 12.9 Plt Count 115 L D MPV 8.7 Neutrophils % 73.8 Lymphocytes % 14.9 D Monocytes % 10.4 H Eosinophils % 0.3 D Basophils % 0.6 PT with INR INR PTT (Actin FS) Sodium Potassium Chloride Carbon Dioxide Anion Gap BUN Creatinine Creat Clearance w eGFR Random Glucose Hemoglobin A1c % Calcium Phosphorus 2.5 D Magnesium Total Bilirubin AST ALT Alkaline Phosphatase Troponin I Total Protein Albumin Triglycerides Cholesterol Total LDL Cholesterol HDL Cholesterol Lipase Vitamin B12 TSH 3.81 H Urine Color Urine Appearance Urine pH Ur Specific [place] Urine Protein Urine Glucose (UA) Urine Ketones Urine Blood Urine Nitrite Urine Bilirubin Urine Urobilinogen Ur Leukocyte Esterase Opiates Screen Methadone Screen Barbiturate Screen Phencyclidine Screen Ur Amphetamines Screen MDMA (Ecstasy) Screen Benzodiazepines Screen Cocaine Screen U Marijuana (THC) Screen Alcohol, Quantitative 04/22/17 04/22/17 04/22/17 08:10 08:10 08:10 WBC RBC Hgb Hct MCV MCH MCHC RDW Plt Count MPV Neutrophils % Lymphocytes % Monocytes % Eosinophils % Basophils % PT with INR 15.3 H INR 1.38 H PTT (Actin FS) Sodium 138 Potassium 3.4 L D Chloride 104 Carbon Dioxide 24 Anion Gap 10 BUN 12 D Creatinine 0.6 Creat Clearance w eGFR > 60 Random Glucose 94 D Hemoglobin A1c % 6.2 H Calcium 7.9 L Phosphorus Magnesium 1.7 L Total Bilirubin 1.8 H D AST 36 D ALT 33 D Alkaline Phosphatase 41 D Troponin I Total Protein 5.2 L D Albumin 3.2 L D Triglycerides 82 Cholesterol 163 Total LDL Cholesterol 70 HDL Cholesterol 76 Lipase Vitamin B12 TSH Urine Color Urine Appearance Urine pH Ur Specific [place] Urine Protein Urine Glucose (UA) Urine Ketones Urine Blood Urine Nitrite Urine Bilirubin Urine Urobilinogen Ur Leukocyte Esterase Opiates Screen Methadone Screen Barbiturate Screen Phencyclidine Screen Ur Amphetamines Screen MDMA (Ecstasy) Screen Benzodiazepines Screen Cocaine Screen U Marijuana (THC) Screen Alcohol, Quantitative 04/22/17 04/23/17 04/23/17 18:44 02:00 08:21 WBC RBC Hgb Hct MCV MCH MCHC RDW Plt Count MPV Neutrophils % Lymphocytes % Monocytes % Eosinophils % Basophils % PT with INR 12.9 12.6 INR 1.16 1.13 PTT (Actin FS) 44.4 H D 59.9 H Sodium Potassium Chloride Carbon Dioxide Anion Gap BUN Creatinine Creat Clearance w eGFR Random Glucose Hemoglobin A1c % Calcium Phosphorus Magnesium Total Bilirubin AST ALT Alkaline Phosphatase Troponin I Total Protein Albumin Triglycerides Cholesterol Total LDL Cholesterol HDL Cholesterol Lipase Vitamin B12 TSH Urine Color Urine Appearance Urine pH Ur Specific [place] Urine Protein Urine Glucose (UA) Urine Ketones Urine Blood Urine Nitrite Urine Bilirubin Urine Urobilinogen Ur Leukocyte Esterase Opiates Screen Methadone Screen Barbiturate Screen Phencyclidine Screen Ur Amphetamines Screen MDMA (Ecstasy) Screen Benzodiazepines Screen Cocaine Screen U Marijuana (THC) Screen Alcohol, Quantitative 04/23/17 04/23/17 04/23/17 08:21 08:21 08:30 WBC 4.7 RBC 3.72 L Hgb 12.8 Hct 37.2 MCV 99.9 H MCH 34.5 H MCHC 34.5 RDW 13.3 Plt Count 114 L MPV 8.9 Neutrophils % 68.3 Lymphocytes % 20.0 D Monocytes % 9.0 Eosinophils % 2.0 D Basophils % 0.7 PT with INR INR PTT (Actin FS) 57.6 H Sodium 140 Potassium 3.7 Chloride 109 H Carbon Dioxide 27 Anion Gap 4 L BUN 9 D Creatinine 0.6 Creat Clearance w eGFR > 60 Random Glucose 117 H D Hemoglobin A1c % Calcium 8.4 Phosphorus Magnesium 1.9 Total Bilirubin 1.1 H D AST 31 ALT 27 Alkaline Phosphatase 44 Troponin I Total Protein 5.5 L Albumin 3.3 L Triglycerides Cholesterol Total LDL Cholesterol HDL Cholesterol Lipase Vitamin B12 TSH Urine Color Urine Appearance Urine pH Ur Specific [place] Urine Protein Urine Glucose (UA) Urine Ketones Urine Blood Urine Nitrite Urine Bilirubin Urine Urobilinogen Ur Leukocyte Esterase Opiates Screen Methadone Screen Barbiturate Screen Phencyclidine Screen Ur Amphetamines Screen MDMA (Ecstasy) Screen Benzodiazepines Screen Cocaine Screen U Marijuana (THC) Screen Alcohol, Quantitative 04/24/17 04/24/17 04/24/17 07:30 07:30 07:30 WBC 7.6 D RBC 3.44 L Hgb 12.1 Hct 34.2 L MCV 99.4 H MCH 35.3 H MCHC 35.5 RDW 12.8 Plt Count 120 L MPV 9.1 Neutrophils % 75.8 Lymphocytes % 14.6 D Monocytes % 7.9 Eosinophils % 1.2 Basophils % 0.5 PT with INR INR PTT (Actin FS) 52.7 H Sodium 137 Potassium 3.4 L Chloride 107 Carbon Dioxide 23 Anion Gap 7 L BUN 10 Creatinine 0.5 L Creat Clearance w eGFR Random Glucose 98 Hemoglobin A1c % Calcium 8.9 Phosphorus 3.4 D Magnesium 1.6 L Total Bilirubin AST ALT Alkaline Phosphatase Troponin I Total Protein Albumin Triglycerides Cholesterol Total LDL Cholesterol HDL Cholesterol Lipase Vitamin B12 TSH Urine Color Urine Appearance Urine pH Ur Specific [place] Urine Protein Urine Glucose (UA) Urine Ketones Urine Blood Urine Nitrite Urine Bilirubin Urine Urobilinogen Ur Leukocyte Esterase Opiates Screen Methadone Screen Barbiturate Screen Phencyclidine Screen Ur Amphetamines Screen MDMA (Ecstasy) Screen Benzodiazepines Screen Cocaine Screen U Marijuana (THC) Screen Alcohol, Quantitative low k and low Mg, needs supplementation Assessment: 04/24/17 10:46 withdrawal sx, familial tremors, continue detox, additional day at 10mg tid with prn libirum ordred, k and mg supplementation. patient may not be able to pariticipate in alcohol rehab if he is unable to ambualte with fx acetabulum. Consider referral to intensive outpatient program or private/individual cousnleing.
[2017-04-24] MEDS: HEPARIN INFUSION - 25,000 UNITS/500 ML INFUS.BAG IVPB SCH (11:26)
[2017-04-24 11:44] LABS: INR 1.13 (0.82-1.09); PROTHROMBIN TIME (PATIENT) 12.6 SEC (10.2-13.0)
--- NOTE | 2017-04-24 11:48 | PN ---
Physical Exam: SUBJECTIVE: Patient seen and examined, sitting in bed, alert, awake and oriented times x 2, reports pain to the right lower extremity is much improved. reports waking 1 step yesterday but was unable to move further secondary to pain. OBJECTIVE:Patient is a 71 y/o male with a past medical history of DVT/PE, COPD, peripheral vascular disease, and hypothyroidism. Patient was admitted from the emergency department for a right acetabular pelvic fracture. PCP: Dr Shakeel Lovell Vital Signs Period Temp Pulse Resp BP Sys/Mello Pulse Ox Last 24 Hr 98.6 F-99.4 F 84-99 18-20 107-153/66-85 96-96 GENERAL: The patient is awake, alert, and fully oriented, in no acute distress. HEAD: Normal with no signs of trauma. EYES: PERRL, extraocular movements intact, sclera anicteric, conjunctiva clear. No ptosis. ENT: Ears normal, nares patent, oropharynx clear without exudates, moist mucous membranes. NECK: Trachea midline, full range of motion, supple. LUNGS: Breath sounds equal, clear to auscultation bilaterally, no wheezes, no crackles, no accessory muscle use. HEART: Regular rate and rhythm, S1, S2 without murmur, rub or gallop. ABDOMEN: Soft, nontender, nondistended, normoactive bowel sounds, no guarding, no rebound, no hepatosplenomegaly, no masses. patient is continent of urine. EXTREMITIES: 2+ pulses, warm, well-perfused, no edema. echymosis to the right lateral proximal thigh with point tenderness, venous changes to bilateral lower extremities. NEUROLOGICAL: Cranial nerves II through XII grossly intact. Normal speech, gait not observed. PSYCH: Normal mood, normal affect. SKIN: Warm, dry, normal turgor, no rashes or lesions noted, echymosis noted to the back and billateral lower extremities. abrasion noted to bilateral knees Laboratory Results - last 24 hr 04/23/17 04/24/17 04/24/17 08:30 07:30 07:30 WBC 7.6 D RBC 3.44 L Hgb 12.1 Hct 34.2 L MCV 99.4 H MCH 35.3 H MCHC 35.5 RDW 12.8 Plt Count 120 L MPV 9.1 Neutrophils % 75.8 Lymphocytes % 14.6 D Monocytes % 7.9 Eosinophils % 1.2 Basophils % 0.5 PTT (Actin FS) 57.6 H 52.7 H Sodium Potassium Chloride Carbon Dioxide Anion Gap BUN Creatinine Random Glucose Calcium Phosphorus Magnesium 04/24/17 07:30 WBC RBC Hgb Hct MCV MCH MCHC RDW Plt Count MPV Neutrophils % Lymphocytes % Monocytes % Eosinophils % Basophils % PTT (Actin FS) Sodium 137 Potassium 3.4 L Chloride 107 Carbon Dioxide 23 Anion Gap 7 L BUN 10 Creatinine 0.5 L Random Glucose 98 Calcium 8.9 Phosphorus 3.4 D Magnesium 1.6 L Active Medications Generic Name Dose Route Start Last Admin Trade Name Freq PRN Reason Stop Dose Admin Acetaminophen 650 mg 04/22/17 11:40 04/23/17 22:59 Tylenol - PO 650 mg Q4H PRN Administration FEVER OR PAIN Acetaminophen/Codeine Phosphate 1 tab 04/23/17 11:46 Tylenol # 3 - PO Q6H PRN FEVER OR PAIN Albuterol/Ipratropium 1 amp 04/21/17 15:59 04/23/17 22:57 Duoneb - NEB 1 amp Q6H PRN Administration SHORTNESS OF BREATH Atorvastatin Calcium 10 mg 04/21/17 22:00 04/23/17 21:31 Lipitor - PO 10 mg HS NIKKI Administration Chlordiazepoxide HCl 25 mg 04/24/17 00:25 04/24/17 09:52 Librium - PO 25 mg Q6H PRN Administration WITHDRAWAL(CONT SUBST) Chlordiazepoxide HCl 10 mg 04/25/17 14:00 Librium - PO TID NIKKI Escitalopram Oxalate 20 mg 04/22/17 10:00 04/24/17 09:52 Lexapro - PO 20 mg DAILY NIKKI Administration Famotidine 20 mg 04/22/17 22:00 04/24/17 09:51 Pepcid - PO 20 mg BID NIKKI Administration Gabapentin 100 mg 04/22/17 14:00 04/24/17 05:04 Neurontin - PO 100 mg TID NIKKI Administration Heparin Sodium (Porcine) 1,000 unit 04/22/17 11:32 Heparin - IVPUSH PRN PRN Heparin Heparin Sodium (Porcine) 5,000 unit 04/22/17 11:32 Heparin - IVPUSH PRN PRN Heparin Heparin Sodium/Dextrose 25,000 units in 500 mls @ 20 mls/hr 04/22/17 11:45 11:26 Heparin Infusion - IVPB 1,100 units/hr TITR NIKKI 22 mls/hr Protocol Administration 1,000 UNITS/HR Cefazolin Sodium 500 mg/ 50 mls @ 50 mls/30 min 04/22/17 12:45 04/24/17 10:00 Dextrose IVPB 50 mls/30 min Q8H-IV NIKKI Administration Lactobacillus Acidophilus 1 tab 04/22/17 13:00 04/24/17 09:52 Bacid - PO 1 tab DAILY NIKKI Administration Levothyroxine Sodium 100 mcg 04/22/17 07:00 04/24/17 06:16 Synthroid - PO 100 mcg DAILY@0700 NIKKI Administration Mometasone Furoate 1 puff 04/21/17 22:00 04/23/17 21:28 Asmanex 220mcg - IH 1 puff HS NIKKI Administration Morphine Sulfate 2 mg 04/22/17 12:08 Morphine Injection - IVPUSH Q4H PRN PAIN Mupirocin 1 applic 04/22/17 10:00 04/24/17 10:00 Bactroban 2% Cream - TP 1 applic BID NIKKI Administration Potassium Chloride 20 meq 04/24/17 22:00 K-Dur - PO BID NIKKI Prednisone 10 mg 04/22/17 10:00 04/24/17 09:52 Deltasone - PO 10 mg DAILY NIKKI Administration Multivit/Folic Acid/Iron 1 tab 04/22/17 10:00 04/24/17 09:59 Vitamins (Sjr) - PO 1 tab DAILY NIKKI Administration Thiamine HCl 100 mg 04/21/17 22:00 04/23/17 21:31 Vitamin B1 - PO 100 mg HS NIKKI Administration Warfarin Sodium 3 mg 04/23/17 18:00 04/23/17 19:38 Coumadin - PO 3 mg DAILY@1800 NIKKI Administration ASSESSMENT/PLAN: 1) MS right acetabular fracture - continue prn morphine and tylenol #3 - evaluated by Dr Nowak, orthopedist, recommend physical therapy weight bearing as tolerated, no surgical intervention at this time - continue bactroban and ancef for abrasion to bilateral knees - serial neurovascular checks 2) CARDIOVASCULAR questionable synopal episode - troponin x 3 wnl - no events on cardiac monitoring hyperlipidemia - continue lipitor 3) pulmonary copd - no acute excerbation at this time, continue home dose prednisone - continue combivent and asmanex - pulmonary consulted and following 4) hematology hx dvt/pe - on coumadin, subtherepeutic continue heparin gtt, increase coumdin 3.5mg - scd/jacob 5) psych etoh - continue librium protocol - Dr Brown, business account specialist consulted and following anxiety/depression - continue lexapro 6) endo hypothyroidism -continue synthroid F.E.N. Electrolytes: monitor Nutriton: regular diet ppx - heparin with coumdin bridge - pepcid - scd/jacob Disposition: full code. Requires inpatient monitoring Visit type - Emergency Visit Emergency Visit: Yes ED Registration Date: 04/21/17 Care time: The patient presented to the Emergency Department on the above date and was hospitalized for further evaluation of their emergent condition. - New Patient This patient is new to me today: No - Critical Care Critical Care patient: No - Discharge Referral Referred to [facility] Med P.C.: No
--- NOTE | 2017-04-24 12:59 | PN ---
Progress Note, Physician History of Present Illness: Tremulousness improving, episode of deliurium yesterday. Tachycardia resolving. - Current Medication List Current Medications: Active Medications Acetaminophen (Tylenol -) 650 mg PO Q4H PRN PRN Reason: FEVER OR PAIN Last Admin: 04/23/17 22:59 Dose: 650 mg Acetaminophen/Codeine Phosphate (Tylenol # 3 -) 1 tab PO Q6H PRN PRN Reason: FEVER OR PAIN Albuterol/Ipratropium (Duoneb -) 1 amp NEB Q6H PRN PRN Reason: SHORTNESS OF BREATH Last Admin: 04/23/17 22:57 Dose: 1 amp Atorvastatin Calcium (Lipitor -) 10 mg PO HS NIKKI Last Admin: 04/23/17 21:31 Dose: 10 mg Chlordiazepoxide HCl (Librium -) 25 mg PO Q6H PRN PRN Reason: WITHDRAWAL(CONT SUBST) Last Admin: 04/24/17 09:52 Dose: 25 mg Chlordiazepoxide HCl (Librium -) 10 mg PO TID NIKKI Escitalopram Oxalate (Lexapro -) 20 mg PO DAILY [facility] Last Admin: 04/24/17 09:52 Dose: 20 mg Famotidine (Pepcid -) 20 mg PO BID [facility] Last Admin: 04/24/17 09:51 Dose: 20 mg Gabapentin (Neurontin -) 100 mg PO TID [facility] Last Admin: 04/24/17 05:04 Dose: 100 mg Heparin Sodium (Porcine) (Heparin -) 1,000 unit IVPUSH PRN PRN PRN Reason: Heparin Heparin Sodium (Porcine) (Heparin -) 5,000 unit IVPUSH PRN PRN PRN Reason: Heparin Heparin Sodium/Dextrose (Heparin Infusion -) 25,000 units in 500 mls @ 20 mls/ hr IVPB TITR NIKKI; 1,000 UNITS/HR PRN Reason: Protocol Last Admin: 04/24/17 11:26 Dose: 1,100 units/hr, 22 mls/hr Cefazolin Sodium 500 mg/ (Dextrose) 50 mls @ 50 mls/30 min IVPB Q8H-IV NIKKI Last Admin: 04/24/17 10:00 Dose: 50 mls/30 min Lactobacillus Acidophilus (Bacid -) 1 tab PO DAILY NIKKI Last Admin: 04/24/17 09:52 Dose: 1 tab Levothyroxine Sodium (Synthroid -) 100 mcg PO DAILY@0700 [facility] Last Admin: 04/24/17 06:16 Dose: 100 mcg Mometasone Furoate (Asmanex 220mcg -) 1 puff IH [facility] Last Admin: 04/23/17 21:28 Dose: 1 puff Morphine Sulfate (Morphine Injection -) 2 mg IVPUSH Q4H PRN PRN Reason: PAIN Mupirocin (Bactroban 2% Cream -) 1 applic TP BID [facility] Last Admin: 04/24/17 10:00 Dose: 1 applic Potassium Chloride (K-Dur -) 20 meq PO BID [facility] Prednisone (Deltasone -) 10 mg PO DAILY [facility] Last Admin: 04/24/17 09:52 Dose: 10 mg Multivit/Folic Acid/Iron ( Vitamins (Sjr) -) 1 tab PO DAILY [facility] Last Admin: 04/24/17 09:59 Dose: 1 tab Thiamine HCl (Vitamin B1 -) 100 mg PO [facility] Last Admin: 04/23/17 21:31 Dose: 100 mg Warfarin Sodium (Coumadin -) 3 mg PO DAILY@1800 [facility] Last Admin: 04/23/17 19:38 Dose: 3 mg - Objective Vital Signs: Vital Signs Temperature 98.6 F 04/24/17 09:50 Pulse Rate 95 H 04/24/17 09:50 Respiratory Rate 18 04/24/17 09:50 Blood Pressure 153/85 04/24/17 09:50 O2 Sat by Pulse Oximetry (%) 96 04/24/17 07:00 Constitutional: Yes: No Distress, Calm Neck: Yes: Supple Cardiovascular: Yes: Regular Rate and Rhythm Respiratory: Yes: Regular, CTA Bilaterally Gastrointestinal: Yes: Normal Bowel Sounds, Soft Edema: No Labs: CBC, BMP 04/24/17 07:30 04/24/17 07:30 INR, PTT INR 1.13 (0.82-1.09) 04/24/17 06:00 - ....Imaging EKG: Report Reviewed (Tele: SR) Problem List - Problems (1) Right acetabular fracture Code(s): S32.401A - UNSP FRACTURE OF RIGHT ACETABULUM, INIT FOR CLOS FX Qualifiers: Encounter type: subsequent encounter Fracture type: closed (2) Peripheral neuropathy Code(s): G62.9 - POLYNEUROPATHY, UNSPECIFIED Qualifiers: Peripheral neuropathy type: polyneuropathy, unspecified Qualified Code(s): G62.9 - Polyneuropathy, unspecified (3) Alcohol withdrawal Code(s): F10.239 - ALCOHOL DEPENDENCE WITH WITHDRAWAL, UNSPECIFIED Qualifiers: Complication of substance-induced condition: uncomplicated Qualified Code(s ): F10.230 - Alcohol dependence with withdrawal, uncomplicated (4) Fall Code(s): W19.XXXA - UNSPECIFIED FALL, INITIAL ENCOUNTER Qualifiers: Encounter type: subsequent encounter Qualified Code(s): W19.XXXD - Unspecified fall, subsequent encounter Assessment/Plan 1. Mechanical fall with ETOH intoxication resulting in right acetabular fracture 2. History of PTE and DVT (suspect hypercoagulable state) - on Coumadin currently subtherapeutic 3. Hypercholesterolemia 4. ETOH withdrawal 5. Bronchial asthma 6. Hypothyroidism 7. Peripheral neuropathy PLAN: 1. Heparin gtt -> Coumadin INR 2-3 2. Detox - continue with Librium taper. He was counseled importance of enrolling in detox program especially with a fall risk on Coumadin, autonomic responses (tachycardia, elevated BP) improving 3. Continue Atorvastatin 10 qhs 4. Thyroid replacement therapy 5. Orthopedic input recommends PT with partial weight bearing as tolerated, analgesia as needed 6. Patient is to follow up with Dr. Shakeel Lovell ([phone]) at [facility] cardiac standpoint once discharged
[2017-04-24] MEDS ORDERED: WARFARIN NA 3 MG TABLET PO SCH (13:20)
[2017-04-24] MEDS ORDERED: chlordiazePOXIDE HCL 25 MG CAPSULE PO PRN (14:29)
[2017-04-24] MEDS ORDERED: chlordiazePOXIDE 5 MG CAPSULE PO PRN (14:57)
[2017-04-24] MEDS ORDERED: WARFARIN NA 2.5 MG, WARFARIN NA 1 MG PO SCH (18:00)
[2017-04-24] MEDS ORDERED: WARFARIN NA 2.5 MG TABLET (FP) ONE (18:10)
[2017-04-24] MEDS ORDERED: WARFARIN NA 1 MG TABLET (FP) ONE (18:10)
[2017-04-24] MEDS: THIAMINE HCL 100 MG TABLET (FP) PO SCH (22:09)
[2017-04-24] MEDS: ATORVASTATIN CA 10 MG TABLET (FP) PO SCH (22:09)
[2017-04-24] MEDS: POTASSIUM CHLORIDE TABS 20 MEQ TABLET.ER (FP) PO SCH (22:10)
[2017-04-24] MEDS: MOMETASONE FUROATE 220 MCG/IH INHALER IH SCH (22:10)
[2017-04-24] MEDS: MAGNESIUM OXIDE 400 MG TABLET (FP) PO SCH (22:10)
[2017-04-25] MEDS ORDERED: PT OWN MED DRAWER 7, Y5N ONE ×2 (01:08→09:49)
[2017-04-25] MEDS: CEFAZOLIN 500 MG in DEXTROSE 5%-WATER - 50 ML IVPB SCH ×2 (01:41→10:11)
[2017-04-25] MEDS: LEVOTHYROXINE NA 100 MCG TABLET (FP) PO SCH (06:33)
--- NOTE | 2017-04-25 07:57 | DS ---
Physical Exam: SUBJECTIVE: Patient seen and examined, patient reports feeling well, sitting up in bed, using cell phone and calling his , does report pain to the right lower extremity upon movement, patient denies any paresthesia to the extremity. 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 Patient presents to the ED today for worsening weakness after sustaining a fall yesterday. Patient reports that yesterday, he was drinking his usual amount of alcohol and fell when he went outside. He states he fell on the concrete but does not remember hitting his head, does not remember any LOC. After the fall, his helped him get back inside and into the bed. However, this morning, patient was unable to get out of the bed or ambulate secondary to right hip and bilateral knee pain. Patient states that he is able to ambulate unassisted at home and does not use any devices. Vital Signs Period Temp Pulse Resp BP Sys/Mello Pulse Ox Last 24 Hr 97.3 F-98.6 F 66-95 18-20 117-153/61-85 97-98 PHYSICAL EXAM GENERAL: The patient is awake, alert, and fully oriented, in no acute distress. HEAD: Normal with no signs of trauma. EYES: PERRL, extraocular movements intact, sclera anicteric, conjunctiva clear. No ptosis. ENT: Ears normal, nares patent, oropharynx clear without exudates, moist mucous membranes. NECK: Trachea midline, full range of motion, supple. LUNGS: Breath sounds equal, clear to auscultation bilaterally, no wheezes, no crackles, no accessory muscle use. HEART: Regular rate and rhythm, S1, S2 without murmur, rub or gallop. ABDOMEN: Soft, nontender, nondistended, normoactive bowel sounds, no guarding, no rebound, no hepatosplenomegaly, no masses. patient is continent of urine. EXTREMITIES: 2+ pulses, warm, well-perfused, no edema. echymosis to the right lateral proximal thigh with point tenderness, venous changes to bilateral lower extremities. NEUROLOGICAL: Cranial nerves II through XII grossly intact. Normal speech, gait not observed. PSYCH: Normal mood, normal affect. SKIN: Warm, dry, normal turgor, no rashes or lesions noted, echymosis noted to the back and billateral lower extremities. abrasion noted to bilateral knees LABS Laboratory Results - last 24 hr 04/24/17 04/24/17 04/24/17 06:00 07:30 07:30 WBC 7.6 D RBC 3.44 L Hgb 12.1 Hct 34.2 L MCV 99.4 H MCH 35.3 H MCHC 35.5 RDW 12.8 Plt Count 120 L MPV 9.1 Neutrophils % 75.8 Lymphocytes % 14.6 D Monocytes % 7.9 Eosinophils % 1.2 Basophils % 0.5 PT with INR 12.6 INR 1.13 PTT (Actin FS) 52.7 H Sodium Potassium Chloride Carbon Dioxide Anion Gap BUN Creatinine Random Glucose Calcium Phosphorus Magnesium 04/24/17 07:30 WBC RBC Hgb Hct MCV MCH MCHC RDW Plt Count MPV Neutrophils % Lymphocytes % Monocytes % Eosinophils % Basophils % PT with INR INR PTT (Actin FS) Sodium 137 Potassium 3.4 L Chloride 107 Carbon Dioxide 23 Anion Gap 7 L BUN 10 Creatinine 0.5 L Random Glucose 98 Calcium 8.9 Phosphorus 3.4 D Magnesium 1.6 L Microbiology 04/23/17 11:28 Urine - Urine Clean Catch Urine Culture - Final NO GROWTH OBTAINED 04/21/17 18:25 Urine - Urine Clean Catch Urine Culture - Final Contaminated: Please Repeat IMAGING ct scan of pelvis: right acetabular fracture ct of head: no evidence of acute intracranial pathology chest xray: no acute pathology xray of bilateral knees: no evidence of acute fracture or dislocation HOSPITAL COURSE: * right acetabular fracture, pain was managed with prn morphine and tylenol #3, patient was evaluated by Dr Nowak, orthopedist, recommend physical therapy weight bearing as tolerated, no surgical intervention at this time, abrasion was noted to bilateral knees patient was placed on bactroban and ancef. * questionable synopal episode, troponin x 3 wnl, no events on cardiac monitoring, shipyard painter Dr Ambriz was consulted and followed patient throughout admission. lipitor was continued throughout admission. * patient has a past medical history of copd, no acute excerbation at this time , continued home dose prednisone, combivent and asmanex, pulmonary, Dr Mc, consulted and followed. * past medical history of dvt/pe, on coumadin, subtherepeutic placed on heparin gtt, increase coumdin 4 mg. * patient does have a history of etoh, placed on librium protocol, Dr Brown, forensic specialist consulted and following, and lexapro (home dose) was continued for anxiety depression * pmh of hypothyroidism, synthroid continued PLAN - discharge to SNF, [facility] - continue lovenox with bridge to coumadin Date of Admission:04/21/17 Date of Discharge: 04/25/17 Minutes to complete discharge: 45 Discharge Summary Reason For Visit: ALCOHOL DEPENDENCE WITHDRAWAL Current Active Problems Alcohol dependence with uncomplicated withdrawal (Acute) Asthma (Acute) Depression (Acute) Diabetes mellitus (Acute) Hypoalbuminemia (Acute) Hypokalemia (Acute) Hypomagnesemia (Acute) Peripheral neuropathy (Acute) Right acetabular fracture (Acute) Condition: Stable - Instructions Diet, Activity, Other Instructions: -resume low sodium diet - take 4mg of coumadin tonight and tomorrow, repeat INR 04/27/17, continue with daily lovenox - continue keflex daily - daily physical therapy - if any new or persistent symptoms develop please return to the emergency department. Referrals: Shakeel Lovell [Primary Care Provider] - Rashi Keene MD [Staff Physician] - 1 Week Donnell Nowak MD [Staff Physician] - 1 Month Disposition: HALFWAY FACILITY - Home Medications Comprehensive Discharge Medication List: Ambulatory Orders Albuterol Sulfate Inhaler - [Ventolin Hfa Inhaler -] 1 - 2 inh PO PRN PRN Atorvastatin Ca [Lipitor] 10 mg PO HS 04/21/17 Beclomethasone Dipropionate [Qvar] 8.7 gm IH BID 04/21/17 Desloratadine 5 mg PO DAILY 04/21/17 Escitalopram Oxalate [Lexapro -] 20 mg PO DAILY 04/21/17 Fluticasone Propionate [Flovent Diskus] 50 mcg IH BID 04/21/17 Levocetirizine Dihydrochloride 5 mg PO DAILY 04/21/17 Levothyroxine [Synthroid -] 100 mcg PO DAILY 04/21/17 Omalizumab [Xolair -] 150 mg SQ ASDIR 04/21/17 Prednisone 10 mg PO ASDIR 04/21/17 Umeclidinium [place] [Incruse Ellipta] 62.5 mcg IH DAILY 04/21/17 Warfarin Sodium [Coumadin] 2.5 mg PO HS 04/21/17 This patient is new to me today: No Emergency Visit: Yes ED Registration Date: 04/21/17 Care time: The patient presented to the Emergency Department on the above date and was hospitalized for further evaluation of their emergent condition. Critical Care patient: No - Discharge Referral Referred to [facility] No
[2017-04-25 08:27] VITALS: BP 125/71; PULSE 71; TEMP 97.5
[2017-04-25 08:43] LABS: MCH 35.1 pg (25.7-33.7); MCHC 34.7 g/dl (32.0-35.9); MEAN PLT VOLUME 9.1 fl (7.5-11.1); PLATELET COUNT 137 K/MM3 (134-434); RDW 12.8 % (11.9-15.9)
[2017-04-25 08:56] LABS: INR 1.09 (0.82-1.09); PROTHROMBIN TIME (PATIENT) 12.2 SEC (10.2-13.0)
[2017-04-25 09:03] LABS: ACTIVATED PTT 50.1 SECONDS (24.0-38.9)
[2017-04-25] MEDS ORDERED: ENOXAPARIN NA (PORCINE) 80 MG/0.8 ML DISP.SYRIN SQ SCH (10:00)
[2017-04-25] MEDS: predniSONE 10 MG TABLET (UD) PO SCH (10:12)
[2017-04-25] MEDS: MAGNESIUM OXIDE 400 MG TABLET (FP) PO SCH (10:12)
[2017-04-25] MEDS: FAMOTIDINE 20 MG TABLET PO SCH (10:12)
[2017-04-25] MEDS: LACTOBACILLUS ACIDOPHILUS 1 EACH TAB (FP) PO SCH (10:14)
[2017-04-25] MEDS: MUPIROCIN CA 2% TOPICAL CREAM 15 GM TUBE TP SCH (10:14)
[2017-04-25] MEDS: ESCITALOPRAM OXALATE 20 MG TABLET (FP) PO SCH (10:15)
[2017-04-25] MEDS: PRENATAL VITAMINS W/ FOLIC ACID TABLET (FP) PO SCH (10:15)
[2017-04-25] MEDS: POTASSIUM CHLORIDE TABS 20 MEQ TABLET.ER (FP) PO SCH (10:15)
--- NOTE | 2017-04-25 10:22 | PN ---
[facility] Progress Note (SOAP) Subjective: Patient aleert and oriented met with patint and , will be discharged to today, still has tremors but most likely essential family tremors. [place] controlled with current medication regiemn less sedated Objective: 04/25/17 10:20 Vital Signs - 24 hr 04/24/17 04/24/17 04/24/17 14:00 15:00 21:00 Temperature 97.3 F L Pulse Rate 73 Respiratory 18 18 20 Rate Blood Pressure 117/61 O2 Sat by Pulse 97 97 98 Oximetry (%) 04/24/17 04/25/17 04/25/17 22:00 02:00 06:00 Temperature 98.6 F 98.3 F 98.1 F Pulse Rate 67 74 66 Respiratory 20 20 20 Rate Blood Pressure 133/69 132/68 129/70 O2 Sat by Pulse 98 Oximetry (%) 04/25/17 04/25/17 08:27 09:00 Temperature 97.5 F L Pulse Rate 71 Respiratory 18 18 Rate Blood Pressure 125/71 O2 Sat by Pulse 98 Oximetry (%) Laboratory Results - last 24 hr 04/24/17 04/25/17 04/25/17 06:00 07:00 07:00 WBC 6.0 RBC 3.59 L Hgb 12.6 Hct 36.3 MCV 101.0 H MCH 35.1 H MCHC 34.7 RDW 12.8 Plt Count 137 MPV 9.1 PT with INR 12.6 12.2 INR 1.13 1.09 PTT (Actin FS) 50.1 H 04/25/17 07:00 WBC RBC Hgb Hct MCV MCH MCHC RDW Plt Count MPV PT with INR Cancelled INR Cancelled PTT (Actin FS) hypokalemia - supplemented, macrocytosis Assessment: 04/25/17 10:21 completed detox, medically stable for discharge recommend physical rehab followed by [facility] alcohol rehab at [facility] whe strong enough to participate. discussed plan with patient , and staff aware. Patient to be discharged to [facility] today
[2017-04-25] MEDS ORDERED: chlordiazePOXIDE 5 MG CAPSULE PO SCH (14:00)
[2017-04-26] MEDS ORDERED: POTASSIUM CHLORIDE TABS 20 MEQ TABLET.ER (FP) PO SCH (10:00)
== END 2017-04-25 11:18 | DRG 896 ==
LOC: FER 10:56 → FM/S 14:39 → INTOOBSV 14:46 → FM/S 14:46 → OBSVTOIN 14:46 → UNDOADMOB 14:46 → FM/S 17:56
PROVIDERS: ADMIT Internal Medicine; ATTEND Nurse Practitioner Family
PROC: HZ2ZZZZ Detoxification Services for Substance Abuse Treatment (ICD-10-PCS; principal; 2017-04-21)
DX: F10.230 Alcohol dependence with withdrawal, uncomplicated (principal); S32.491A Other specified fracture of right acetabulum, initial encounter for closed fracture; E87.0 Hyperosmolality and hypernatremia; E11.42 Type 2 diabetes mellitus with diabetic polyneuropathy; E87.6 Hypokalemia; F32.89 Other specified depressive episodes; S80.212A Abrasion, left knee, initial encounter; S80.211A Abrasion, right knee, initial encounter; S00.511A Abrasion of lip, initial encounter; S70.211A Abrasion, right hip, initial encounter; W18.39XA Other fall on same level, initial encounter; E78.5 Hyperlipidemia, unspecified; R26.9 Unspecified abnormalities of gait and mobility; J45.50 Severe persistent asthma, uncomplicated; M25.551 Pain in right hip; E88.09 Other disorders of plasma-protein metabolism, not elsewhere classified; E83.42 Hypomagnesemia; E03.9 Hypothyroidism, unspecified; R00.0 Tachycardia, unspecified; R41.0 Disorientation, unspecified; K76.0 Fatty (change of) liver, not elsewhere classified; Y93.89 Activity, other specified; Y92.89 Other specified places as the place of occurrence of the external cause; Z79.01 Long term (current) use of anticoagulants; Z86.711 Personal history of pulmonary embolism; Z86.718 Personal history of other venous thrombosis and embolism
CPT/HCPCS: 36415; 70450-TC; 71010-TC; 72192-TC; 73523-TC; 73562-TC-LT; 73562-TC-RT; 80048; 80053; 80061; 80307; 81003; 82607; 83036; 83690; 83721; 83735; 84100; 84436; 84443; 84484; 85025; 85027; 85610; 85730; 87086; 93005; 94010; 94640; 97116-GP; 97162-GP; 99284-25; G0378; J1644

== ENCOUNTER 2018-06-06 18:00 | Inpatient (IN) | payer OTHER, MEDICARE ==
[2018-06-06 18:34] LABS: EOS % 4.7 % (0-4.5); HEMATOCRIT 43.2 % (35.4-49); HEMOGLOBIN 14.5 GM/dl (11.7-16.9); LYMPH % 11.6 % (8-40); MCH 33.9 pg (25.7-33.7); MCHC 33.6 g/dl (32.0-35.9); MEAN CELL VOLUME 100.9 fl (80-96); MEAN PLT VOLUME 8.8 fl (7.5-11.1); NEUT % 72.7 % (42.8-82.8); PLATELET COUNT 178 K/MM3 (134-434); RBC 4.29 M/mm3 (4.00-5.60); RDW 12.5 % (11.9-15.9)
--- NOTE | 2018-06-06 18:49 | PDOC ---
Attending Attestation - HPI HPI: 06/06/18 19:02 The patient is a 72-year-old male with a past medical history significant for Asthma, hx of PE (1979), HLD, thyroid disorder, and severe alcohol use presents to the emergency department with left leg swelling. The patient presents with a week of swelling to the left leg, associated with discoloration. Per at the bedside, hes been non-compliant with Xarelto for a month. The patient states its secondary to concerns about falling and hemorrhaging. The patient states he started back on Xarelto 2 days ago. The patient reports his last drink was 3-4 days ago and states hes been trying to cut back, however the reports his last drink was last night to this morning. She states hes been more dissolved lately with decreased self-care. She states that hes been more confused and violent and hes been losing weight. The reports that he s been more immobile. The patient reports hes been coughing a lot lately secondary to heavy post nasal drip. Denies chest pain and shortness of breath. Allergies: Codeine Social history: Alcohol use. Denies the use of tobacco. PCP: Dr. Jill Lovell. - Medical Decision Making 06/06/18 19:02 Documentation prepared by Padmini Dalton, acting as medical receptionist medical assistant for Heike Song MD. <Padmini Dalton - Last Filed: 06/06/18 19:02> - Resident Resident Name: Victor Hugo Bruce - ED Attending Attestation I have performed the following: I have examined & evaluated the patient, The case was reviewed & discussed with the resident, I agree w/resident's findings & plan, Exceptions are as noted - HPI HPI: 06/06/18 18:49 06/06/18 18:49 - Physicial Exam PE: 06/06/18 18:44 head atraumatic. lungs with wheezing right > left. heart tachycardia. abd soft nt nd. ext wwp. left lower ext diffuse erythema, pitting edema.nuero alert oriented x 3. resting tremor. moves all four ext. - Medical Decision Making 06/06/18 18:50 72 yo male with h/o etoh abuse, dvt pe, hypothyroid, asthma, here with for concerns of left leg swelling. pt has stopped his eloquis recently bc he was scared he would fall due to his drinking. leg has been swollen for several days. denies cp or sob. pt provides additional history that he has not been taking care of himself, does become intermittently confused and violent, house is disheveled, and he is labile. he states last drink was 3 days ago and has been trying to cut back. states duane last drink was last pm or early am. he restarted xarelto 2 days ago. on exam pt tremulouse, head atraumatic. lungs with wheezing right > left. heart tachycardia. abd soft nt nd. ext wwp. left lower ext diffuse erythema, pitting edema. differential: etoh withdrawal, cirrhosis , anemia. ketoacidosis, DT , recurrent DVT, pna, or other infection. iv supplement. pt will likely require admission for etoh withdrawal. will give benzos here. us left leg, cxr duoneb. labs. 06/06/18 18:49 06/06/18 19:10 pt with extensive DVT on ultrasound left leg. will start on heparin. will require vasc surgery consult admission for etoh withdrawal. 06/06/18 19:21 pt signed out to oncoming physician dr phillips at bedside. awaiting call back from hospitalist for admission dvt and etoh withdrawal. <Heike Song - Last Filed: 06/06/18 19:22>
[2018-06-06] MEDS ORDERED: FOLIC ACID INJECTION - 1 MG, THIAMINE HCL 100 MG, MULTIVIT INJECTION ADULT 10 ML in SOD... IVPB ONE (18:50)
[2018-06-06 18:51] LABS: ALBUMIN 3.4 g/dl (3.5-5.0); ALK PHOS 82 U/L (32-92); ANION GAP 12 MMOL/L (8-16); BILIRUBIN,TOTAL 1.3 mg/dl (0.2-1.0); BLOOD UREA NITROGEN 11 mg/dl (7-18); CALCIUM 8.7 mg/dl (8.4-10.2); CHLORIDE 100 mmol/L (98-107); CO2 24 mmol/L (22-28); GLUCOSE,RANDOM 174 mg/dl (74-106); POTASSIUM 4.7 mmol/L (3.5-5.1); SGOT/AST 80 U/L (10-42); SGPT/ALT 45 U/L (10-40); SODIUM 136 mmol/L (136-145)
[2018-06-06] MEDS ORDERED: THIAMINE HCL 200 MG/2 ML VIAL ONE (18:51)
[2018-06-06] MEDS ORDERED: MULTIVIT INJ. ADULT COMBO WITH VIT K 1 COMBO 10 ML VIAL IV ONE (18:52)
[2018-06-06] MEDS ORDERED: FOLIC ACID 5 MG/1 ML ONE (18:53)
--- NOTE | 2018-06-06 19:00 | PDOC ---
History of Present Illness - General Chief Complaint: Pain Stated Complaint: LEFT THIGH PAIN Time Seen by Provider: 06/06/18 18:08 History Source: Patient Exam Limitations: No Limitations - History of Present Illness Initial Comments: 06/06/18 19:04 72 yo M with a hx of PE (1979), multiple DVTs and phlebitis, ETOH abuse (hx of withdrawal without seizure and DTs), peripheral neuropathy, and asthma presents to the emergency department with left leg swelling and pain for 2 days. Per the patient, he developed the swelling over the course of 2 days with pain in the medial upper left thigh. Its a dull ache, 3/10 severity, non radiating, and constant. Denies SOB and chest pain. Per the , she states he has had the swelling for over 1 week, was off his eliquis for 1 month and restarted the medication 2 days ago, been sitting all day and night in his study, and drinking voraciously with his last drink last night. States he drinks at least a pint of whiskey most days and had had labile emotional swings throughout the past 3-4 weeks while losing a tremendous amount of weight with poor self care and hygiene. Pmhx: Refer to above Meds; clarinex, lipitor, eliquis, lexapro, gabapentin, synthroid, QVAR, and ventolin. Allergies: codeine Social: Denies tobacco and alcohol use. Endorses drinking 3 glasses of wine per day. Past History - Past Medical History Allergies/Adverse Reactions: Allergies Allergy/AdvReac Type Severity Reaction Status Date / Time codeine Allergy Verified 06/06/18 18:20 Home Medications: Ambulatory Orders Albuterol Sulfate Inhaler - [Ventolin Hfa Inhaler -] 1 - 2 inh PO QID PRN Apixaban [Eliquis] 2 tab PO DAILY 06/06/18 Atorvastatin Ca [Lipitor] 10 mg PO HS 06/06/18 Beclomethasone Dipropionate [Qvar] 8.7 gm IH BID 06/06/18 Desloratadine 5 mg PO DAILY 06/06/18 Fluticasone Propionate [Flonase Allergy Relief] 1 spray NS BID 06/06/18 Gabapentin 100 mg PO QID 06/06/18 Levothyroxine [Synthroid -] 100 mcg PO DAILY 06/06/18 Multivit-Min/FA/Lycopen/Lutein [Centrum Silver Tablet] 1 each PO DAILY 06/06/18 Umeclidinium [place] [Incruse Ellipta] 62.5 mcg IH DAILY 06/06/18 Vit B Comp/C/Folic/Iron/Vit E [Vitamin B Complex Tablet] 1 each PO DAILY Asthma: Yes COPD: No HTN: Yes Hypercholesterolemia: Yes Psychiatric Problems: Yes (ETOH ABUSE) Thyroid Disease: Yes Other medical history: H/O PHLEBITIS, PE, NEUROPATHY OF FEET - Suicide/Smoking/Psychosocial Hx Smoking History: Never smoked Have you smoked in the past 12 months: No Hx Alcohol Use: Yes Drug/Substance Use Hx: No Substance Use Type: Alcohol Hx Substance Use Treatment: No Review of Systems - Review of Systems Able to Perform ROS?: Yes Is the patient limited Citizen Of [place] proficient: No Constitutional: No: Chills, Diaphoresis, Fever, Weakness HEENTM: No: Eye Pain, Blurred Vision, Recent change in vision, Ear Pain, Nose Pain, Nose Congestion, Tinnitus, Throat Pain, Throat Swelling, Mouth Pain Respiratory: Yes: Cough. No: Shortness of Breath, SOB with Exertion, Productive cough, Hemoptysis Cardiac (ROS): No: Chest Pain, Lightheadedness, Palpitations, Syncope, Chest Tightness ABD/GI: No: Constipated, Diarrhea, Nausea, Poor Appetite, Poor Fluid Intake, Rectal Bleeding, Vomiting, Indigestion, Abdominal cramping, Tarry Stools : No: Burning, Dysuria, Hematuria, Urgency Musculoskeletal: Yes: Muscle Pain (left thigh). No: Back Pain, Joint Pain, Neck Pain Integumentary: Yes: Erythema (left leg distal). No: Bruising, Lesions, Lumps, Pallor Neurological: No: Headache, Numbness, Tingling, Tremors, Ataxia, Dizziness Psychiatric: Yes: Anxiety, Sleep Pattern Change. No: Change in Appetite Endocrine: Yes: Unexplained Weight Loss. No: Unexplained Weight Gain Hematologic/Lymphatic: No: Anemia *Physical Exam - Vital Signs Last Vital Signs Temp Pulse Resp BP Pulse Ox 98.8 F 125 H 20 127/82 98 06/06/18 18:00 06/06/18 18:00 06/06/18 18:00 06/06/18 18:00 06/06/18 18:00 - Physical Exam General Appearance: Yes: Nourished, Appropriately Dressed. No: Apparent Distress HEENT: positive: EOMI, CR, Normal Voice, Symmetrical, Pharynx Normal, Hearing Grossly Normal. negative: Pale Conjunctivae, Scleral Icterus (R), Scleral Icterus (L), Muffled/Hoarse voice, Pharyngeal Erythema, Tonsillar Exudate, Tonsillar Erythema, Nasal Congestion, Rhinorrhea, Sinus Tenderness, Excessive drooling Neck: positive: Trachea midline. negative: Tender, Lymphadenopathy (R), Lymphadenopathy (L), Tender lateral, Tender midline Respiratory/Chest: positive: Wheezing (bilaterally expiratory and inspiratory). negative: Chest Tender, Lungs Clear, Normal Breath Sounds, Respiratory Distress, Accessory Muscle Use Cardiovascular: positive: Regular Rhythm, S1, S2, Tachycardia. negative: Systolic Murmur Gastrointestinal/Abdominal: positive: Normal Bowel Sounds, Flat, Soft. negative : Tender, Guarding, Rebound, Tenderness, Hernia Lymphatic: negative: Adenopathy Musculoskeletal: positive: Normal Inspection. negative: CVA Tenderness, CVA Tenderness (R), CVA Tenderness (L), Vertebral Tenderness Extremity: positive: Normal Capillary Refill, Normal Range of Motion, Tender ( tender in the left medial anterior proximal LE of the left leg. erythema present. erythema present in the distal LLE with warmth to the touch and edema. ), Swelling, Erythema. negative: Normal Inspection, Calf Tenderness Integumentary: positive: Normal Color, Dry, Warm Neurologic: positive: presentation designer II-XII NML intact, Fully Oriented, Alert, Normal Mood/ Affect, Normal Response, Motor Strength 5/5, Other (tremulous on exam. fasiculations on tongue. ) Moderate Sedation - Procedure Monitoring Vital Signs: Procedure Monitoring Vital Signs Temperature 98.8 F 06/06/18 18:00 Pulse Rate 125 H 06/06/18 18:00 Respiratory Rate 20 06/06/18 18:00 Blood Pressure 127/82 06/06/18 18:00 O2 Sat by Pulse Oximetry (%) 98 06/06/18 18:00 Heart Score/ECG Review - ECG Intrepretation Comment:: 06/06/18 19:34 sinus tachycardia. ventricular rate 105 bpm. DC 180 ms. QRS duration 72 ms. QTc is 415 ms. ED Treatment Course - LABORATORY CBC & Chemistry Diagram: 06/08/18 07:00 06/08/18 07:00 - ADDITIONAL ORDERS Additional order review: Laboratory Results 06/06/18 18:24 Sodium 136 Potassium 4.7 D Chloride 100 Carbon Dioxide 24 Anion Gap 12 BUN 11 Creatinine 1.0 Creat Clearance w eGFR > 60 Random Glucose 174 H D Calcium 8.7 Total Bilirubin 1.3 H AST 80 H D ALT 45 H D Alkaline Phosphatase 82 Total Protein 6.0 L Albumin 3.4 L 06/06/18 18:24 RBC 4.29 MCV 100.9 H MCHC 33.6 RDW 12.5 MPV 8.8 Neutrophils % 72.7 Lymphocytes % 11.6 D Monocytes % 10.0 Eosinophils % 4.7 H D Basophils % 1.0 Medical Decision Making - Medical Decision Making 72 yo M with a hx of PE (1979), multiple DVTs and phlebitis, ETOH abuse (hx of withdrawal without seizure and DTs), peripheral neuropathy, and asthma presents to the emergency department with left leg swelling and pain for 2 days. Initial vitals: Initial Vital Signs Temp Pulse Resp BP Pulse Ox 98.8 F 125 H 20 127/82 98 06/06/18 18:00 06/06/18 18:00 06/06/18 18:00 06/06/18 18:00 06/06/18 18:00 ddx: PE vs DVT vs cellulitis vs muscle strain vs abscess will order labs and LE US. Laboratory Tests 06/06/18 06/06/18 06/06/18 18:24 18:24 18:24 WBC 8.0 RBC 4.29 Hgb 14.5 Hct 43.2 D MCV 100.9 H MCH 33.9 H MCHC 33.6 RDW 12.5 Plt Count 178 D MPV 8.8 Absolute Neuts (auto) 5.8 Neutrophils % 72.7 Lymphocytes % 11.6 D Monocytes % 10.0 Eosinophils % 4.7 H D Basophils % 1.0 PT with INR 21.0 H INR 1.90 H D PTT (Actin FS) 33.6 D Sodium 136 Potassium 4.7 D Chloride 100 Carbon Dioxide 24 Anion Gap 12 BUN 11 Creatinine 1.0 Creat Clearance w eGFR > 60 Random Glucose 174 H D Calcium 8.7 Total Bilirubin 1.3 H AST 80 H D ALT 45 H D Alkaline Phosphatase 82 Creatine Kinase B-Natriuretic Peptide Total Protein 6.0 L Albumin 3.4 L Alcohol, Quantitative 06/06/18 06/06/18 06/06/18 18:40 18:40 18:40 WBC RBC Hgb Hct MCV MCH MCHC RDW Plt Count MPV Absolute Neuts (auto) Neutrophils % Lymphocytes % Monocytes % Eosinophils % Basophils % PT with INR INR PTT (Actin FS) Sodium Potassium Chloride Carbon Dioxide Anion Gap BUN Creatinine Creat Clearance w eGFR Random Glucose Calcium Total Bilirubin AST ALT Alkaline Phosphatase Creatine Kinase 39 B-Natriuretic Peptide 108.1 Total Protein Albumin Alcohol, Quantitative < 3.0 labs within normal limits. extensive DVT was seen on ultrasound on the left leg. patient will be admitted for anti-coagulation and begin on heparin. CXR was negative. patient was given ativan, duoneb for treatment. Dispo: Admit *DC/Admit/Observation/Transfer Diagnosis at time of Disposition: Alcohol withdrawal Qualifiers: Complication of substance-induced condition: with unspecified complication Qualified Code(s): F10.239 - Alcohol dependence with withdrawal, unspecified DVT (deep venous thrombosis) Qualifiers: DVT location: lower extremity Affected thrombotic vein of extremity: unspecified vein of extremity Chronicity: unspecified Laterality: left Qualified Code(s): I82.402 - Acute embolism and thrombosis of unspecified deep veins of left lower extremity - Discharge Dispostion Condition at time of disposition: Stable - Referrals - Patient Instructions - Post Discharge Activity
[2018-06-06] MEDS ORDERED: LORazepam 2 MG/ML SDV VIAL ONE (19:10)
[2018-06-06 19:20] LABS: ACTIVATED PTT 33.6 SECONDS (25.2-36.5)
[2018-06-06] MEDS ORDERED: HEPARIN NA (PORCINE) 5,000 UNITS/ML 1ML VIAL IVPUSH PRN ×2 (19:22)
[2018-06-06] MEDS ORDERED: ALBUTEROL SO4 2.5/IPRATROPIUM 0.5 INH SOL 3 ML VIAL.NEB. NEB ONE ×2 (19:22→19:51)
[2018-06-06 19:25] LABS: INR 1.9 (0.82-1.09)
[2018-06-06] MEDS ORDERED: HEPARIN NA (PORCINE) 5,000 UNITS/ML 1ML VIAL ONE (19:27)
[2018-06-06] MEDS ORDERED: HEPARIN INFUSION - 25,000 UNITS/500 ML INFUS.BAG IVPB ONE (19:27)
[2018-06-06] MEDS: HEPARIN SOD,PORK IN 0.45% NACL 25,000 UNITS/500 ML INFUS.BAG IVPB SCH (19:40)
[2018-06-06] MEDS ORDERED: chlordiazePOXIDE HCL 25 MG CAPSULE PO ONE (20:04)
[2018-06-06] MEDS ORDERED: chlordiazePOXIDE HCL 25 MG CAPSULE ONE (20:11)
--- NOTE | 2018-06-06 22:40 | HP ---
Admitting History and Physical - Primary Care Physician PCP: Shakeel Lovell ([facility]) - Admission Chief Complaint: Left Leg Pain, Redness, Swelling History of Present Illness: This is a 72 y/o man with a PMHx of Alcohol Abuse, PE ([place], 1979), Depression, Asthma, HLD, Thyroid Disorder. Who presents to the ED L- leg pain, swelling and redness x several weeks. Patient's states " he stopped taking his Eliquis for several weeks and has been excessively drinking." The reports that the patient has been drinking pints of whiskey that he hides in their study.The patient admits to drinking 3-4 glasses of wine several times a week. The spouse reports that he has stopped taking his antidepressants for about a month. She reports that he has been unkempt, and has had a decreased appetite for several weeks. Patient denies fever, dizziness, SOB, CP, palpitations, AP, N/V/D, constipation, dysuria. History Source: Patient, Family Member Limitations to Obtaining History: Clinical Condition, Poor Historian - Past Medical History SECURITY PROFESSIONAL: Yes: Peripheral Neuropathy Cardiovascular: Yes: Hyperlipdemia Pulmonary: Yes: Asthma Gastrointestinal: Yes: Other (Fatty liver) Psych: Yes: Addictions, Depression Endocrine: Yes: Diabetes Mellitus - Past Surgical History Past Surgical History: Yes: Hernia Repair (Umbilical) Additional Past Surgical History: Nasal Repair x3 - Advance Directives Advance Directives: Yes: Health Care Proxy - Smoking History Smoking history: Never smoked Have you smoked in the past 12 months: No - Alcohol/Substance Use Hx Alcohol Use: Yes (3 DAYS AGO) Number of Drinks Daily: 6 (pint of Whiskey, 3-4 glasses of Wine) History of Substance Use: reports: None - Social History Usual Living Arrangement: Yes: With Spouse, With Child ADL: Independent History of Recent Travel: No Home Medications - Allergies Allergies/Adverse Reactions: Allergies Allergy/AdvReac Type Severity Reaction Status Date / Time codeine Allergy Verified 06/06/18 18:20 - Home Medications Home Medications: Ambulatory Orders Albuterol Sulfate Inhaler - [Ventolin Hfa Inhaler -] 1 - 2 inh PO QID PRN Apixaban [Eliquis] 2 tab PO DAILY 06/06/18 Atorvastatin Ca [Lipitor] 10 mg PO HS 06/06/18 Beclomethasone Dipropionate [Qvar] 8.7 gm IH BID 06/06/18 Desloratadine 5 mg PO DAILY 06/06/18 Fluticasone Propionate [Flonase Allergy Relief] 1 spray NS BID 06/06/18 Gabapentin 100 mg PO QID 06/06/18 Levothyroxine [Synthroid -] 100 mcg PO DAILY 06/06/18 Multivit-Min/FA/Lycopen/Lutein [Centrum Silver Tablet] 1 each PO DAILY 06/06/18 Umeclidinium [place] [Incruse Ellipta] 62.5 mcg IH DAILY 06/06/18 Vit B Comp/C/Folic/Iron/Vit E [Vitamin B Complex Tablet] 1 each PO DAILY Family Disease History - Family Disease History Family History: Unable to Obtain Review of Systems - Review of Systems Constitutional: reports: Chills, Loss of Appetite Eyes: reports: No Symptoms HENT: reports: No Symptoms Neck: reports: No Symptoms Cardiovascular: reports: Edema Respiratory: reports: No Symptoms Gastrointestinal: reports: No Symptoms Genitourinary: reports: No Symptoms Breasts: reports: No Symptoms Reported Musculoskeletal: reports: No Symptoms Integumentary: reports: No Symptoms Neurological: reports: No Symptoms Endocrine: reports: No Symptoms Hematology/Lymphatic: reports: No Symptoms Psychiatric: reports: No Symptoms Physical Examination Vital Signs: Vital Signs Temperature 98.3 F 06/06/18 22:22 Pulse Rate 103 H 06/06/18 22:22 Respiratory Rate 17 06/06/18 22:22 Blood Pressure 115/54 L 06/06/18 22:22 O2 Sat by Pulse Oximetry (%) 99 06/06/18 22:23 Constitutional: Yes: Mild Distress Eyes: Yes: Conjunctiva Clear, EOM Intact, PERRL HENT: Yes: WNL, Atraumatic, Normocephalic Neck: Yes: WNL, Supple, Trachea Midline Cardiovascular: Yes: WNL, Regular Rate and Rhythm, S1, S2 Respiratory: Yes: WNL, Regular, CTA Bilaterally Gastrointestinal: Yes: WNL, Normal Bowel Sounds, Soft Renal/: Yes: WNL Breast(s): Yes: WNL Musculoskeletal: Yes: Joint Swelling (L- leg) Extremities: Yes: Erythema, Other (L-Leg hardness, erythema, warmth) Edema: Yes Edema: LLE: 2+ Peripheral Pulses WNL: Yes Integumentary: Yes: Erythema Neurological: Yes: Alert, Oriented, Cran Nerves II-XII Intact, Tremors ...Motor Strength: WNL Psychiatric: Yes: WNL, Alert, Oriented Labs: CBC, BMP 06/06/18 18:24 06/06/18 18:24 Laboratory Results - last 24 hr 06/06/18 06/06/18 06/06/18 18:24 18:24 18:24 WBC 8.0 RBC 4.29 Hgb 14.5 Hct 43.2 D MCV 100.9 H MCH 33.9 H MCHC 33.6 RDW 12.5 Plt Count 178 D MPV 8.8 Absolute Neuts (auto) 5.8 Neutrophils % 72.7 Lymphocytes % 11.6 D Monocytes % 10.0 Eosinophils % 4.7 H D Basophils % 1.0 PT with INR 21.0 H INR 1.90 H D PTT (Actin FS) 33.6 D Sodium 136 Potassium 4.7 D Chloride 100 Carbon Dioxide 24 Anion Gap 12 BUN 11 Creatinine 1.0 Creat Clearance w eGFR > 60 Random Glucose 174 H D Calcium 8.7 Total Bilirubin 1.3 H AST 80 H D ALT 45 H D Alkaline Phosphatase 82 Creatine Kinase B-Natriuretic Peptide Total Protein 6.0 L Albumin 3.4 L Alcohol, Quantitative 06/06/18 06/06/18 06/06/18 18:40 18:40 18:40 WBC RBC Hgb Hct MCV MCH MCHC RDW Plt Count MPV Absolute Neuts (auto) Neutrophils % Lymphocytes % Monocytes % Eosinophils % Basophils % PT with INR INR PTT (Actin FS) Sodium Potassium Chloride Carbon Dioxide Anion Gap BUN Creatinine Creat Clearance w eGFR Random Glucose Calcium Total Bilirubin AST ALT Alkaline Phosphatase Creatine Kinase 39 B-Natriuretic Peptide 108.1 Total Protein Albumin Alcohol, Quantitative < 3.0 06/07/18 02:00 WBC RBC Hgb Hct MCV MCH MCHC RDW Plt Count MPV Absolute Neuts (auto) Neutrophils % Lymphocytes % Monocytes % Eosinophils % Basophils % PT with INR INR PTT (Actin FS) 97.3 H Sodium Potassium Chloride Carbon Dioxide Anion Gap BUN Creatinine Creat Clearance w eGFR Random Glucose Calcium Total Bilirubin AST ALT Alkaline Phosphatase Creatine Kinase B-Natriuretic Peptide Total Protein Albumin Alcohol, Quantitative Current Medications Generic Name Dose Route Start Last Admin Trade Name Freq PRN Reason Stop Dose Admin Chlordiazepoxide HCl 50 mg 06/06/18 23:30 06/07/18 05:13 Librium - PO 06/07/18 17:01 50 mg [id number] NIKKI Administration Chlordiazepoxide HCl 25 mg 06/07/18 23:00 Librium - PO 06/08/18 17:01 [id number] NIKKI Chlordiazepoxide HCl 15 mg 06/08/18 23:00 Librium - PO 06/09/18 17:01 [id number] NIKKI Chlordiazepoxide HCl 25 mg 06/06/18 23:19 Librium - PO 06/09/18 23:18 Q4H PRN WITHDRAWAL(CONT SUBST) Chlordiazepoxide HCl 10 mg 06/09/18 23:00 Librium - PO 06/10/18 17:01 [id number] [facility] Fluticasone Propionate 1 spray 06/07/18 10:00 Flonase - NS BID NIKKI Heparin Sodium (Porcine) 1,000 unit 06/06/18 19:22 Heparin - IVPUSH PRN PRN Heparin Heparin Sodium (Porcine) 5,000 unit 06/06/18 19:22 06/06/18 19:40 Heparin - IVPUSH 5,000 unit PRN PRN Administration Heparin HEPARIN SOD,PORK IN 0.45% NACL 25,000 units in 500 mls @ 20 mls/hr 06/06/18 19 :30 06/07/18 06:25 Heparin-1/2ns 25,000 Units/500 IVPB 900 units/hr TITR NIKKI 18 mls/hr Titration Protocol 1,000 UNITS/HR Levothyroxine Sodium 100 mcg 06/07/18 07:00 06/07/18 06:29 Synthroid - PO 100 mcg DAILY@0700 [facility] Administration Loratadine 10 mg 06/07/18 10:00 Claritin - PO DAILY [facility] Multivit/Ca Carb/B Cmplx/FA/Prenat 1 tablet 06/07/18 10:00 Nephro-Evangelina - PO DAILY [facility] Multivitamins/Minerals/Vitamin C 1 tab 06/07/18 10:00 Tab-A-Vit - PO DAILY [facility] Non-Formulary Medication 8.7 gm 06/07/18 10:00 Beclomethasone Dipropionate [Qvar] IH BID [facility] Non-Formulary Medication 62.5 mcg 06/07/18 10:00 Umeclidinium [place] [Incruse Ellipta] IH DAILY NIKKI Imaging - Results Chest X-ray: Report Reviewed (No acute pathology), Image Reviewed Ultrasound: Image Reviewed EKG: Image Reviewed (NSR, Left [place] Deviation QT/QTc 370/450) Problem List - Problems (1) DVT (deep venous thrombosis) Assessment/Plan: Patient and spouse reports increased swelling, redness and pain for days- weeks Wells Score 4 US- confirmed extensive DVT L- leg Started on Heparin gtt, will continue Appreciate Vascular Consult Monitor PTT Monitor vitals Stool Occult-pending Code(s): I82.409 - ACUTE EMBOLISM AND THOMBOS UNSP DEEP VN UNSP LOWER EXTREMITY Qualifiers: DVT location: lower extremity Affected thrombotic vein of extremity: unspecified vein of extremity Chronicity: unspecified Laterality: left Qualified Code(s): I82.402 - Acute embolism and thrombosis of unspecified deep veins of left lower extremity (2) Alcohol dependence with uncomplicated withdrawal Assessment/Plan: Per spouse hx of Binge Drinking pints of Whiskey and Wine 3-4 glasses Ativan and Librium given in ED Appreciate Detox Consult Will start Detox Protocol CIWA-Ar 7 Fall Precautions Seizure Precautions Monitor CBC, BMP Monitor Vitals Patient counseled on Alcohol Abstinence- he is not amendable Code(s): F10.230 - ALCOHOL DEPENDENCE WITH WITHDRAWAL, UNCOMPLICATED (3) Asthma Assessment/Plan: Stable No acute flare Continue home meds Peak Flow BID Duonebs prn Code(s): J45.909 - UNSPECIFIED ASTHMA, UNCOMPLICATED (4) Transaminitis Assessment/Plan: Likely secondary to chronic Alcohol Abuse Will monitor LFTs Code(s): R74.0 - NONSPEC ELEV OF LEVELS OF TRANSAMNS & LACTIC ACID DEHYDRGNSE (5) Elevated bilirubin Assessment/Plan: Likely secondary to Chronic Alcohol Abuse Abdominal US in am r/o Liver Disease Monitor BMP Code(s): R17 - UNSPECIFIED JAUNDICE (6) Depression Assessment/Plan: Patient stopped taking his SSRI Appreciate Psych Consult Will continue Lexapro Code(s): F32.9 - MAJOR DEPRESSIVE DISORDER, SINGLE EPISODE, UNSPECIFIED (7) Diabetes mellitus Assessment/Plan: Stable BGMs ISS Code(s): E11.9 - TYPE 2 DIABETES MELLITUS WITHOUT COMPLICATIONS Assessment/Plan This is a 72 y/o man with a PMHx of Alcohol Abuse, PE (non-compliant Eliquis), HLD, Thyroid Disease. Admitted for DVT of L- Leg, Alcohol Dependency with Uncomplicated Withdrawal for further evaluation of their emergent condition. Plan: See Problem List FEN PO fluids as tolerated Replete lytes prn Low Na Diet DVT ppx R- Leg SCD only Continue Heparin Drip for DVT L- Leg Code Status: Full Code Dispo: Requires Inpatient Care Visit type - Emergency Visit Emergency Visit: Yes ED Registration Date: 06/06/18 Care time: The patient presented to the Emergency Department on the above date and was hospitalized for further evaluation of their emergent condition. - New Patient This patient is new to me today: Yes Date on this admission: 06/06/18 - Critical Care Critical Care patient: No
[2018-06-06] MEDS ORDERED: chlordiazePOXIDE HCL 25 MG CAPSULE PO PRN (23:19)
[2018-06-06] MEDS: chlordiazePOXIDE HCL 25 MG CAPSULE PO SCH (23:46)
[2018-06-07] MEDS: chlordiazePOXIDE HCL 25 MG CAPSULE PO SCH ×4 (05:13→22:42)
[2018-06-07] MEDS: LEVOTHYROXINE NA 100 MCG TABLET (FP) PO SCH (06:29)
[2018-06-07] MEDS ORDERED: ALBUTEROL SO4 2.5/IPRATROPIUM 0.5 INH SOL 3 ML VIAL.NEB. NEB PRN (08:08)
[2018-06-07 09:13] LABS: BASO % 0.8 % (0-2.0); EOS % 11.1 % (0-4.5); HEMATOCRIT 36.2 % (35.4-49); HEMOGLOBIN 12.6 GM/dl (11.7-16.9); LYMPH % 19.6 % (8-40); MCH 35.4 pg (25.7-33.7); MCHC 34.8 g/dl (32.0-35.9); MEAN CELL VOLUME 101.9 fl (80-96); MEAN PLT VOLUME 9.9 fl (7.5-11.1); MONO % 11.1 % (3.8-10.2); NEUT % 57.4 % (42.8-82.8); PLATELET COUNT 125 K/MM3 (134-434); RBC 3.55 M/mm3 (4.00-5.60); RDW 12.8 % (11.9-15.9); WHITE BLOOD COUNT 5.8 K/mm3 (4.0-10.8)
[2018-06-07 09:30] LABS: ANION GAP 9 MMOL/L (8-16); BLOOD UREA NITROGEN 10 mg/dl (7-18); CHLORIDE 103 mmol/L (98-107); CO2 25 mmol/L (22-28); CREATININE 0.8 mg/dl (0.6-1.3); GLUCOSE,RANDOM 96 mg/dl (74-106); MAGNESIUM 1.5 mg/dL (1.8-2.4); PHOSPHOROUS 3.2 mg/dl (2.5-4.6); POTASSIUM 3.7 mmol/L (3.5-5.1); SODIUM 137 mmol/L (136-145)
[2018-06-07] MEDS ORDERED: VITAMIN B COMP W-C 1 EA TABLET PO SCH (10:00)
[2018-06-07] MEDS: GABAPENTIN 100 MG CAPSULE (FP) PO SCH ×4 (10:00→22:42)
[2018-06-07] MEDS: LORATADINE 10 MG TABLET PO SCH (10:00)
[2018-06-07] MEDS: MULTIVITAMINS (DAILY MVI) TABLET (FP) PO SCH (10:01)
[2018-06-07] MEDS: FLUTICASONE PROP 0.05% 16 GM NASAL SPRAY NS SCH ×3 (10:01→21:15)
--- NOTE | 2018-06-07 12:06 | PN ---
Physical Exam: SUBJECTIVE: Patient seen and examined, asleep, arousable, no tremors noted. denies pain, sob, OBJECTIVE: Vital Signs Period Temp Pulse Resp BP Sys/Mello Pulse Ox Last 24 Hr 98.1 F-99.1 F 93-125 16-20 110-128/54-82 95-99 GENERAL: The patient is awake, alert, and fully oriented, in no acute distress. HEAD: Normal with no signs of trauma. EYES: PERRL, extraocular movements intact, sclera anicteric, conjunctiva clear. No ptosis. ENT: Ears normal, nares patent, oropharynx clear without exudates, moist mucous membranes. NECK: Trachea midline, full range of motion, supple. LUNGS: Breath sounds equal, clear to auscultation bilaterally, no wheezes, no crackles, no accessory muscle use. HEART: Regular rate and rhythm, S1, S2 without murmur, rub or gallop. ABDOMEN: Soft, nontender, nondistended, normoactive bowel sounds, no guarding, no rebound, no hepatosplenomegaly, no masses. EXTREMITIES: 2+ pulses, warm, well-perfused, no edema. NEUROLOGICAL: Cranial nerves II through XII grossly intact. Normal speech, gait not observed. PSYCH: Normal mood, normal affect. SKIN: Warm, dry, normal turgor, no rashes or lesions noted Laboratory Results - last 24 hr 06/06/18 06/06/18 06/06/18 18:24 18:24 18:24 WBC 8.0 RBC 4.29 Hgb 14.5 Hct 43.2 D MCV 100.9 H MCH 33.9 H MCHC 33.6 RDW 12.5 Plt Count 178 D MPV 8.8 Absolute Neuts (auto) 5.8 Neutrophils % 72.7 Lymphocytes % 11.6 D Monocytes % 10.0 Eosinophils % 4.7 H D Basophils % 1.0 PT with INR 21.0 H INR 1.90 H D PTT (Actin FS) 33.6 D Sodium 136 Potassium 4.7 D Chloride 100 Carbon Dioxide 24 Anion Gap 12 BUN 11 Creatinine 1.0 Creat Clearance w eGFR > 60 Random Glucose 174 H D Calcium 8.7 Phosphorus Magnesium Total Bilirubin 1.3 H AST 80 H D ALT 45 H D Alkaline Phosphatase 82 Creatine Kinase B-Natriuretic Peptide Total Protein 6.0 L Albumin 3.4 L TSH Alcohol, Quantitative 01/19/19 01/19/19 01/19/19 18:40 18:40 18:40 WBC RBC Hgb Hct MCV MCH MCHC RDW Plt Count MPV Absolute Neuts (auto) Neutrophils % Lymphocytes % Monocytes % Eosinophils % Basophils % PT with INR INR PTT (Actin FS) Sodium Potassium Chloride Carbon Dioxide Anion Gap BUN Creatinine Creat Clearance w eGFR Random Glucose Calcium Phosphorus Magnesium Total Bilirubin AST ALT Alkaline Phosphatase Creatine Kinase 39 B-Natriuretic Peptide 108.1 Total Protein Albumin TSH Alcohol, Quantitative < 3.0 06/07/18 06/07/18 06/07/18 02:00 07:00 07:00 WBC 5.8 RBC 3.55 L Hgb 12.6 Hct 36.2 D MCV 101.9 H MCH 35.4 H MCHC 34.8 RDW 12.8 Plt Count 125 L D MPV 9.9 D Absolute Neuts (auto) 3.5 Neutrophils % 57.4 D Lymphocytes % 19.6 D Monocytes % 11.1 H Eosinophils % 11.1 H D Basophils % 0.8 PT with INR INR PTT (Actin FS) 97.3 H Sodium 137 Potassium 3.7 D Chloride 103 Carbon Dioxide 25 Anion Gap 9 BUN 10 Creatinine 0.8 Creat Clearance w eGFR > 60 Random Glucose 96 D Calcium 8.0 L Phosphorus 3.2 Magnesium 1.5 L Total Bilirubin AST ALT Alkaline Phosphatase Creatine Kinase B-Natriuretic Peptide Total Protein Albumin TSH Alcohol, Quantitative 06/07/18 07:00 WBC RBC Hgb Hct MCV MCH MCHC RDW Plt Count MPV Absolute Neuts (auto) Neutrophils % Lymphocytes % Monocytes % Eosinophils % Basophils % PT with INR INR PTT (Actin FS) Sodium Potassium Chloride Carbon Dioxide Anion Gap BUN Creatinine Creat Clearance w eGFR Random Glucose Calcium Phosphorus Magnesium Total Bilirubin AST ALT Alkaline Phosphatase Creatine Kinase B-Natriuretic Peptide Total Protein Albumin TSH 7.37 H D Alcohol, Quantitative Active Medications Generic Name Dose Route Start Last Admin Trade Name Freq PRN Reason Stop Dose Admin Albuterol/Ipratropium 1 amp 06/07/18 08:08 Duoneb - NEB Q6H PRN SHORTNESS OF BREATH Chlordiazepoxide HCl 50 mg 06/06/18 23:30 06/07/18 05:13 Librium - PO 06/07/18 17:01 50 mg [id number] NIKKI Administration Chlordiazepoxide HCl 25 mg 06/07/18 23:00 Librium - PO 06/08/18 17:01 [id number] NIKKI Chlordiazepoxide HCl 15 mg 06/08/18 23:00 Librium - PO 06/09/18 17:01 [id number] NIKKI Chlordiazepoxide HCl 25 mg 06/06/18 23:19 Librium - PO 06/09/18 23:18 Q4H PRN WITHDRAWAL(CONT SUBST) Chlordiazepoxide HCl 10 mg 06/09/18 23:00 Librium - PO 06/10/18 17:01 [id number] [facility] Fluticasone Propionate 1 spray 06/07/18 10:00 06/07/18 10:01 Flonase - NS Not Given BID [facility] Gabapentin 100 mg 06/07/18 10:00 06/07/18 10:00 Neurontin - PO 100 mg QID NIKKI Administration Heparin Sodium (Porcine) 1,000 unit 06/06/18 19:22 Heparin - IVPUSH PRN PRN Heparin Heparin Sodium (Porcine) 5,000 unit 06/06/18 19:22 06/06/18 19:40 Heparin - IVPUSH 5,000 unit PRN PRN Administration Heparin HEPARIN SOD,PORK IN 0.45% NACL 25,000 units in 500 mls @ 20 mls/hr 06/06/18 19 :30 06/07/18 06:25 Heparin-1/2ns 25,000 Units/500 IVPB 900 units/hr TITR NIKKI 18 mls/hr Titration Protocol 1,000 UNITS/HR Levothyroxine Sodium 100 mcg 06/07/18 07:00 06/07/18 06:29 Synthroid - PO 100 mcg DAILY@0700 NIKKI Administration Loratadine 10 mg 06/07/18 10:00 06/07/18 10:00 Claritin - PO 10 mg DAILY NIKKI Administration Multivit/Ca Carb/B Cmplx/FA/Prenat 1 tablet 06/07/18 10:00 06/07/18 10:01 Nephro-Evangelina - PO Not Given DAILY [facility] Multivitamins/Minerals/Vitamin C 1 tab 06/07/18 10:00 06/07/18 10:01 Tab-A-Vit - PO 1 tab DAILY NIKKI Administration Non-Formulary Medication 8.7 gm 06/07/18 10:00 Beclomethasone Dipropionate [Qvar] BID [facility] Non-Formulary Medication 62.5 mcg 06/07/18 10:00 Umeclidinium [place] [Incruse Ellipta] IH DAILY [facility] Thiamine HCl 100 mg 06/07/18 12:00 Vitamin B1 - PO DAILY [facility] ASSESSMENT/PLAN: Ron Moyer is a 72 yr old M, medical condition HLD, Asthma, PE (on eliquis), ETOH abuse, Depression, DM, Peripheral Neuropathy, Hypothyroidism, admitted for Admitting Diagnosis Left Leg DVT Chronic Problems HLD Asthma Hypothyroidism ETOH abuse, depression DM hx of PE Peripheral Neuropathy A/P #Left leg DVT -started on Heparin Drip -vasc consult pending -US- confirmed extensive DVT L- leg -Monitor PTT -Monitor vitals -Stool Occult-pending #ETOH abuse -Per spouse hx of Binge Drinking pints of Whiskey and Wine 3-4 glasses -Detox Consult pending -Detox protocol -Fall Precautions -Seizure Precautions -will add thiamine PO #Asthma, controlled -Continue home meds -Peak Flow BID -Duonebs prn #Transaminitis -Likely secondary to chronic Alcohol Abuse -Will monitor LFTs #Elevated bilirubin -Likely secondary to Chronic Alcohol Abuse -Abdominal US in am r/o Liver Disease -Monitor BMP #Depression,chronic -Patient stopped taking his SSRI -Appreciate Psych Consult -continue Lexapro #hypothyroidism -cont with home dose synthroid 100mcg # Diabetes mellitus -Stable -A1c pending -BGMs -ISS Dispo: requires inpatient treatment DVT -on Heparin drip Visit type - Emergency Visit Emergency Visit: Yes ED Registration Date: 06/06/18 Care time: The patient presented to the Emergency Department on the above date and was hospitalized for further evaluation of their emergent condition. - New Patient This patient is new to me today: Yes Date on this admission: 06/07/18 - Critical Care Critical Care patient: No
[2018-06-07] MEDS: THIAMINE HCL 100 MG TABLET (FP) PO SCH (12:11)
[2018-06-07] MEDS: VITAMIN B COMP W-C 1 EA TABLET PO SCH (13:38)
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
[2018-06-07] MEDS: FOLIC ACID INJECTION - 1 MG, THIAMINE HCL 100 MG, MULTIVIT INJECTION ADULT 10 ML in SOD... IVPB ONE ×2 (15:46→17:43)
--- NOTE | 2018-06-07 19:38 | EKG ---
Test Reason : Blood Pressure : / mmHG Vent. Rate : 105 BPM Atrial Rate : 105 BPM P-R Int : 180 ms QRS Dur : 072 ms QT Int : 314 ms P-R-T Axes : 086 078 078 degrees QTc Int : 415 ms SINUS TACHYCARDIA SEPTAL INFARCT , AGE UNDETERMINED ABNORMAL ECG WHEN COMPARED WITH ECG OF 21-APR-2017 12:39, [place] INTERVAL HAS DECREASED Confirmed by CHEYENNE PANTOJA MD ([id number]) on 06/07/2018 7:38:24 PM Referred By: Nataliya Camacho Confirmed By:CHEYENNE PANTOJA MD
[2018-06-07] MEDS ORDERED: PT OWN MED DRAWER 7, Y5N ONE ×2 (21:02→21:51)
[2018-06-07] MEDS: HEPARIN SOD,PORK IN 0.45% NACL 25,000 UNITS/500 ML INFUS.BAG IVPB SCH (21:16)
[2018-06-08] MEDS: HEPARIN INFUSION - 25,000 UNITS/500 ML INFUS.BAG IVPB SCH ×5 (06:11→23:45)
[2018-06-08] MEDS: LEVOTHYROXINE NA 100 MCG TABLET (FP) PO SCH (06:11)
[2018-06-08] MEDS: chlordiazePOXIDE HCL 25 MG CAPSULE PO SCH ×3 (06:11→17:10)
[2018-06-08 08:51] LABS: HEMATOCRIT 39.5 % (35.4-49); HEMOGLOBIN 13.2 GM/dl (11.7-16.9); MCH 34.1 pg (25.7-33.7); MCHC 33.4 g/dl (32.0-35.9); MEAN PLT VOLUME 9.9 fl (7.5-11.1); PLATELET COUNT 155 K/MM3 (134-434); RBC 3.88 M/mm3 (4.00-5.60); RDW 12.9 % (11.9-15.9); WHITE BLOOD COUNT 5.8 K/mm3 (4.0-10.8)
[2018-06-08 09:32] LABS: ALBUMIN 2.9 g/dl (3.5-5.0); ALK PHOS 66 U/L (32-92); ANION GAP 8 MMOL/L (8-16); BILIRUBIN,TOTAL 0.7 mg/dl (0.2-1.0); BLOOD UREA NITROGEN 9 mg/dl (7-18); CALCIUM 8.6 mg/dl (8.4-10.2); CHLORIDE 105 mmol/L (98-107); CO2 27 mmol/L (22-28); CREATININE 0.8 mg/dl (0.6-1.3); GLUCOSE,RANDOM 87 mg/dl (74-106); MAGNESIUM 1.5 mg/dL (1.8-2.4); POTASSIUM 4.5 mmol/L (3.5-5.1); SGOT/AST 46 U/L (10-42); SGPT/ALT 31 U/L (10-40); SODIUM 140 mmol/L (136-145); TOT PROT 5.3 g/dl (6.4-8.3)
[2018-06-08] MEDS: FLUTICASONE PROP 0.05% 16 GM NASAL SPRAY NS SCH ×2 (10:21→21:25)
[2018-06-08] MEDS: LORATADINE 10 MG TABLET PO SCH (10:21)
[2018-06-08] MEDS: VITAMIN B COMP W-C 1 EA TABLET PO SCH (10:22)
[2018-06-08] MEDS: THIAMINE HCL 100 MG TABLET (FP) PO SCH (10:22)
[2018-06-08] MEDS: GABAPENTIN 100 MG CAPSULE (FP) PO SCH ×4 (10:22→21:26)
[2018-06-08] MEDS: MULTIVITAMINS (DAILY MVI) TABLET (FP) PO SCH (10:22)
--- NOTE | 2018-06-08 12:43 | PN ---
Physical Exam: SUBJECTIVE: Patient seen and examined oob to chair. Admits to drinking several times per week, denies drinking every day. Feels his family's concerns are exaggerated. States he cut back to one dose daily of Eliquis because he's "afraid of having an accident." Denies feeling anxious. OBJECTIVE: Vital Signs Period Temp Pulse Resp BP Sys/Mello Pulse Ox Last 24 Hr 98.4 F-98.8 F 80-96 18-18 110-133/60-68 97-97 GENERAL: The patient is awake, alert, and fully oriented. LUNGS: Breath sounds equal, clear to auscultation bilaterally, no wheezes, no crackles, no accessory muscle use. HEART: Regular rate and rhythm, S1, S2 ABDOMEN: Soft, nontender, nondistended LEFT LOWER EXTREMITY: Tensely swollen, warm to touch, erythematous, tender EXTREMITIES: 2+ pulses, warm, well-perfused, no edema. NEUROLOGICAL: Cranial nerves II through XII grossly intact. Normal speech. + hand tremors, +asterixis SKIN: Warm, dry, normal turgor Laboratory Results - last 24 hr 06/07/18 06/08/18 06/08/18 12:45 07:00 07:00 WBC 5.8 RBC 3.88 L Hgb 13.2 Hct 39.5 MCV 102.0 H MCH 34.1 H MCHC 33.4 RDW 12.9 Plt Count 155 D MPV 9.9 PTT (Actin FS) 67.2 H D 54.3 H Sodium Potassium Chloride Carbon Dioxide Anion Gap BUN Creatinine Creat Clearance w eGFR Random Glucose Calcium Magnesium Total Bilirubin AST ALT Alkaline Phosphatase Total Protein Albumin 06/08/18 07:00 WBC RBC Hgb Hct MCV MCH MCHC RDW Plt Count MPV PTT (Actin FS) Sodium 140 Potassium 4.5 D Chloride 105 Carbon Dioxide 27 Anion Gap 8 BUN 9 Creatinine 0.8 Creat Clearance w eGFR > 60 Random Glucose 87 Calcium 8.6 Magnesium 1.5 L Total Bilirubin 0.7 AST 46 H D ALT 31 D Alkaline Phosphatase 66 D Total Protein 5.3 L Albumin 2.9 L Active Medications Generic Name Dose Route Start Last Admin Trade Name Freq PRN Reason Stop Dose Admin Albuterol/Ipratropium 1 amp 06/07/18 08:08 Duoneb - NEB Q6H PRN SHORTNESS OF BREATH Chlordiazepoxide HCl 25 mg 06/07/18 23:00 06/08/18 11:05 Librium - PO 06/08/18 17:01 25 mg [id number] NIKKI Administration Chlordiazepoxide HCl 15 mg 06/08/18 23:00 Librium - PO 06/09/18 17:01 [id number] NIKKI Chlordiazepoxide HCl 25 mg 06/06/18 23:19 Librium - PO 06/09/18 23:18 Q4H PRN WITHDRAWAL(CONT SUBST) Chlordiazepoxide HCl 10 mg 06/09/18 23:00 Librium - PO 06/10/18 17:01 [id number] NIKKI Fluticasone Propionate 1 spray 06/07/18 10:00 06/08/18 10:21 Flonase - NS 1 spray BID NIKKI Administration Gabapentin 100 mg 06/07/18 10:00 06/08/18 10:22 Neurontin - PO 100 mg QID NIKKI Administration Heparin Sodium (Porcine) 1,000 unit 06/06/18 19:22 Heparin - IVPUSH PRN PRN Heparin Heparin Sodium (Porcine) 5,000 unit 06/06/18 19:22 06/06/18 19:40 Heparin - IVPUSH 5,000 unit PRN PRN Administration Heparin Heparin Sodium/Dextrose 25,000 units in 500 mls @ 20 mls/hr 06/07/18 23:45 07:30 Heparin Infusion - IVPB 900 units/hr TITR NIKKI 18 mls/hr Administration Protocol 1,000 UNITS/HR Levothyroxine Sodium 100 mcg 06/07/18 07:00 06/08/18 06:11 Synthroid - PO 100 mcg DAILY@0700 NIKKI Administration Loratadine 10 mg 06/07/18 10:00 06/08/18 10:21 Claritin - PO 10 mg DAILY NIKKI Administration Multivit/Ca Carb/B Cmplx/FA/Prenat 1 tablet 06/07/18 13:30 06/08/18 10:22 Nephro-Evangelina - PO 1 tablet DAILY NIKKI Administration Multivitamins/Minerals/Vitamin C 1 tab 06/07/18 10:00 06/08/18 10:22 Tab-A-Vit - PO 1 tab DAILY NIKKI Administration Non-Formulary Medication 8.7 gm 06/07/18 10:00 Beclomethasone Dipropionate [Qvar] IH BID [facility] Non-Formulary Medication 62.5 mcg 06/07/18 10:00 Umeclidinium [place] [Incruse Ellipta] IH DAILY [facility] Thiamine HCl 100 mg 06/07/18 12:00 06/08/18 10:22 Vitamin B1 - PO 100 mg DAILY [facility] Administration ASSESSMENT/PLAN 72 year-old male with a PMH significant for alcohol abuse x 40 years, peripheral neuropathy, asthma, h/o PEs and DVTs, HLD, hypothyroidism, and depression. Admitted for LLE DVT and acute alcohol withdrawal. LLE DVT --Duplex: extensive DVT throughout the common and superficial femoral arteries, as well as the popliteal and posterior tibial arteries, minimal flow seen --self dc'd Eliquis, but unreliable historian so unclear when last dose --on heparin drip, PTT goal 60-80 --Wells score high risk: CTA pending --vascular consult pending --discussed with IR, candidate for thrombectomy and/or IVC filter; discussed with patient and ; patient wants to be transferred to [place]; his PCP at [place] is Dr. Shakeel Lovell [phone]; spoke with covering Dr. Kayedn Barnett; Dr. Lovell will accept patient but there have no beds yesterday and today ; will continue heparin drip pending transfer Hepatic mass --US: possible right lobe mass 2.7 x 2.7 x 1.7cm --CTA abdomen pending Alcohol dependency Acute alcohol withdrawal --tremulous; continue librium taper --detox Dr. Lee following Asthma --stable --duonebs PRN Peripheral neuropathy --per , patient has to hold on to the wall or railings in order to walk and this is chronic; he stays in his home office on the first floor and self- transfers from bed to chair to bed; he can walk about 10 steps to get to his car ; he drives to a local tavern in [place] to drink Hyperlipidemia --hold atorvastatin pending hepatic workup Hypothyroidism --continue levothyroxine Depression --continue Lexapro FEN Fluids: PO intake adequate Electrolytes: replete as indicated Nutrition: regular diet DVT prophylaxis: on heparin drip; PTT goal 60-80 Physical therapy Dispo: continues to require inpatient care. Awaiting bed availability at [place]. Full code. Visit type - Emergency Visit Emergency Visit: Yes ED Registration Date: 06/06/18 Care time: The patient presented to the Emergency Department on the above date and was hospitalized for further evaluation of their emergent condition. - New Patient This patient is new to me today: Yes Date on this admission: 06/08/18 - Critical Care Critical Care patient: Yes Total Critical Care Time (in minutes): 80 Critical Care Statement: The care of this patient involved high complexity decision making to prevent further life threatening deterioration of the patient 's condition and/or to evaluate & treat vital organ system(s) failure or risk of failure.
[2018-06-08] MEDS ORDERED: MAGNESIUM SULF 50% (8.12 MEQ/2 ML-1 GM VIAL) IVPB ONE (13:15)
[2018-06-08] MEDS ORDERED: PT OWN MED DRAWER 7, Y5N ONE (21:21)
[2018-06-08] MEDS: POLYETHYLENE GLYCOL 3350 119 GM BTL PO SCH (21:26)
[2018-06-08] MEDS ORDERED: DEXTROSE 5%-NORMAL SALINE 1,000 ML IV SCH (21:45)
[2018-06-08] MEDS ORDERED: ATORVASTATIN CA 10 MG TABLET (FP) PO SCH (22:00)
[2018-06-08] MEDS ORDERED: SENNOSIDES/DOCUSATE COMBO (SENNA PLUS) TABLET (UD) PO SCH (22:00)
[2018-06-09] MEDS: chlordiazePOXIDE 5 MG CAPSULE PO SCH ×5 (02:54→22:06)
[2018-06-09] MEDS ORDERED: LEVOTHYROXINE NA 112 MCG TABLET (FP) PO SCH (07:00)
[2018-06-09 07:41] LABS: BASO % 0.5 % (0-2.0); EOS % 12.1 % (0-4.5); HEMATOCRIT 36.1 % (35.4-49); HEMOGLOBIN 12.1 GM/dl (11.7-16.9); MCH 34.3 pg (25.7-33.7); MCHC 33.6 g/dl (32.0-35.9); MEAN CELL VOLUME 102.1 fl (80-96); MEAN PLT VOLUME 9.4 fl (7.5-11.1); MONO % 12.2 % (3.8-10.2); NEUT % 57.2 % (42.8-82.8); PLATELET COUNT 156 K/MM3 (134-434); RBC 3.54 M/mm3 (4.00-5.60); RDW 12.4 % (11.9-15.9); WHITE BLOOD COUNT 6.2 K/mm3 (4.0-10.8)
[2018-06-09 08:02] LABS: ALBUMIN 2.4 g/dl (3.5-5.0); ALK PHOS 55 U/L (32-92); ANION GAP 7 MMOL/L (8-16); BILIRUBIN,DIRECT 0.2 mg/dL (0.0-0.3); BILIRUBIN,TOTAL 0.6 mg/dl (0.2-1.0); BLOOD UREA NITROGEN 7 mg/dl (7-18); CHLORIDE 108 mmol/L (98-107); CO2 24 mmol/L (22-28); CREATININE 0.7 mg/dl (0.6-1.3); GLUCOSE,RANDOM 127 mg/dl (74-106); MAGNESIUM 1.7 mg/dL (1.8-2.4); POTASSIUM 3.5 mmol/L (3.5-5.1); SGOT/AST 42 U/L (10-42); SGPT/ALT 28 U/L (10-40); SODIUM 139 mmol/L (136-145); TOT PROT 4.5 g/dl (6.4-8.3)
[2018-06-09] MEDS ORDERED: MAGNESIUM SULF 50% (8.12 MEQ/2 ML-1 GM VIAL) IVPB ONE (08:51)
[2018-06-09 09:14] LABS: LIPASE 465 U/L (73-393)
[2018-06-09] MEDS ORDERED: MAGNESIUM SULFATE IN WATER 2 GM/50 ML IVPB IVPB ONE (09:15)
[2018-06-09] MEDS ORDERED: PT OWN MED DRAWER 7, Y5N ONE (09:44)
[2018-06-09] MEDS: VITAMIN B COMP W-C 1 EA TABLET PO SCH (09:49)
[2018-06-09] MEDS: THIAMINE HCL 100 MG TABLET (FP) PO SCH (09:49)
[2018-06-09] MEDS: GABAPENTIN 100 MG CAPSULE (FP) PO SCH ×5 (09:49→22:06)
[2018-06-09] MEDS: LORATADINE 10 MG TABLET PO SCH (09:49)
[2018-06-09] MEDS: MULTIVITAMINS (DAILY MVI) TABLET (FP) PO SCH (09:49)
[2018-06-09] MEDS: FLUTICASONE PROP 0.05% 16 GM NASAL SPRAY NS SCH ×2 (09:49→22:05)
[2018-06-09] MEDS: POLYETHYLENE GLYCOL 3350 119 GM BTL PO SCH ×2 (09:52→22:06)
[2018-06-09] MEDS ORDERED: POTASSIUM CHLORIDE TABS 20 MEQ TABLET.ER (FP) PO ONE (10:15)
--- NOTE | 2018-06-09 11:14 | ECHO ---
Name: CYNDY LEMUS Exam:Adult Echocardiogram Study Date: 06/09/2018 07:53 AM Age: 72 yrs Reason For Study: history of p/e Height: 72 in Weight: 150 lb BSA: 1.9 m2 MMode/2D Measurements & Calculations Ao root diam: 3.4 cm LVOT diam: 2.0 cm LA dimension: 3.4 cm Doppler Measurements & Calculations MV E max matteo: 70.8 cm/sec MV A max matteo: 90.0 cm/sec MV E/A: 0.79 Procedure A two-dimensional transthoracic echocardiogram with color flow and Doppler was performed. The study w as technically difficult with many images being suboptimal in quality. The patient was in normal sinus r hythm during the exam. Left Ventricle The left ventricle is grossly normal size. Left ventricular systolic function is grossly normal. E/A reversal consistent with but not diagnostic of poor LV compliance. Right Ventricle The right ventricle is not well visualized. The right ventricle is mildly dilated. The right ventricu lar systolic function is mildly reduced. Atria The left atrial size is normal. Right atrium not well visualized. Mitral Valve There is mild mitral annular calcification. There is moderate mitral valve thickening. There is mild mitral regurgitation. Tricuspid Valve The tricuspid valve is not well visualized, but is grossly normal. There is mild tricuspid regurgitat ion. Aortic Valve The aortic valve is not well visualized. The aortic valve opens well. No aortic regurgitation is pres ent. Pulmonic Valve The pulmonic valve is not well visualized. Great Vessels The aortic root is normal size. Pericardium/Pleura There is no pericardial effusion. Interpretation Summary The study was technically difficult with many images being suboptimal in quality. E/A reversal consistent with but not diagnostic of poor LV compliance Left ventricular systolic function is grossly normal. The right ventricle is mildly dilated. The right ventricular systolic function is mildly reduced. There is mild mitral annular calcification. There is moderate mitral valve thickening. There is mild mitral regurgitation. There is mild tricuspid regurgitation. There is no pericardial effusion. MD Panchito Morales 06/09/2018 11:13 AM
--- NOTE | 2018-06-09 11:34 | PN ---
Physical Exam: SUBJECTIVE: Patient seen and examined at bedside. Two separate, private discussions with the patient with the not present. In first conversation patient stated he did not want to go to [place] and wanted to be treated here at [facility]/[place]. came to see patient. During second conversation with me, alone, patient said he would go to [place]. He said his had put a lot of effort into the transfer, communicating with all his doctors, and he thinks it is something he should do. Asked patient if he felt pressured to make this decision, he said no. During both conversations patient was calm, alert, oriented and able to make his own decisions. OBJECTIVE: Vital Signs Period Temp Pulse Resp BP Sys/Mello Pulse Ox Last 24 Hr 98.6 F-99.0 F 78-100 16-20 110-137/59-77 98-99 GENERAL: The patient is awake, alert, and fully oriented. LUNGS: Breath sounds equal, clear to auscultation bilaterally, no wheezes, no crackles, no accessory muscle use. HEART: Regular rate and rhythm, S1, S2 ABDOMEN: Soft, nontender, nondistended LEFT LOWER EXTREMITY: Tensely swollen, warm to touch, erythematous, tender EXTREMITIES: 2+ pulses, warm, well-perfused, no edema. NEUROLOGICAL: Cranial nerves II through XII grossly intact. Normal speech. mild hand tremors, asterixis SKIN: Warm, dry, normal turgor Laboratory Results - last 24 hr 06/07/18 06/08/18 06/08/18 06:30 14:20 20:00 WBC RBC Hgb Hct MCV MCH MCHC RDW Plt Count MPV Absolute Neuts (auto) Neutrophils % Lymphocytes % Monocytes % Eosinophils % Basophils % PTT (Actin FS) 58.9 H 70.8 H Sodium Potassium Chloride Carbon Dioxide Anion Gap BUN Creatinine Creat Clearance w eGFR Random Glucose Hemoglobin A1c % 5.7 Calcium Magnesium Total Bilirubin Direct Bilirubin AST ALT Alkaline Phosphatase Total Protein Albumin Lipase Stool Occult Blood 06/09/18 06/09/18 06/09/18 07:00 07:00 07:00 WBC 6.2 RBC 3.54 L Hgb 12.1 Hct 36.1 MCV 102.1 H MCH 34.3 H MCHC 33.6 RDW 12.4 Plt Count 156 MPV 9.4 Absolute Neuts (auto) 3.5 Neutrophils % 57.2 Lymphocytes % 18.0 Monocytes % 12.2 H Eosinophils % 12.1 H Basophils % 0.5 PTT (Actin FS) 58.4 H Sodium 139 Potassium 3.5 D Chloride 108 H Carbon Dioxide 24 Anion Gap 7 L BUN 7 Creatinine 0.7 Creat Clearance w eGFR > 60 Random Glucose 127 H D Hemoglobin A1c % Calcium 8.0 L Magnesium 1.7 L Total Bilirubin 0.6 Direct Bilirubin 0.2 AST 42 ALT 28 Alkaline Phosphatase 55 D Total Protein 4.5 L Albumin 2.4 L Lipase 465 H Stool Occult Blood 06/09/18 09:18 WBC RBC Hgb Hct MCV MCH MCHC RDW Plt Count MPV Absolute Neuts (auto) Neutrophils % Lymphocytes % Monocytes % Eosinophils % Basophils % PTT (Actin FS) Sodium Potassium Chloride Carbon Dioxide Anion Gap BUN Creatinine Creat Clearance w eGFR Random Glucose Hemoglobin A1c % Calcium Magnesium Total Bilirubin Direct Bilirubin AST ALT Alkaline Phosphatase Total Protein Albumin Lipase Stool Occult Blood Negative Active Medications Generic Name Dose Route Start Last Admin Trade Name Freq PRN Reason Stop Dose Admin Albuterol/Ipratropium 1 amp 06/07/18 08:08 Duoneb - NEB Q6H PRN SHORTNESS OF BREATH Atorvastatin Calcium 10 mg 06/08/18 22:00 06/08/18 21:25 Lipitor - PO 10 mg HS NIKKI Administration Chlordiazepoxide HCl 15 mg 06/08/18 23:00 06/09/18 11:30 Librium - PO 06/09/18 17:01 15 mg [id number] NIKKI Administration Chlordiazepoxide HCl 25 mg 06/06/18 23:19 Librium - PO 06/09/18 23:18 Q4H PRN WITHDRAWAL(CONT SUBST) Chlordiazepoxide HCl 10 mg 06/09/18 23:00 Librium - PO 06/10/18 17:01 [id number] NIKKI Fluticasone Propionate 1 spray 06/07/18 10:00 06/09/18 09:49 Flonase - NS 1 spray BID NIKKI Administration Gabapentin 100 mg 06/07/18 10:00 06/09/18 09:49 Neurontin - PO 100 mg QID NIKKI Administration Heparin Sodium (Porcine) 1,000 unit 06/06/18 19:22 06/08/18 15:53 Heparin - IVPUSH 1,000 unit PRN PRN Administration Heparin Heparin Sodium (Porcine) 5,000 unit 06/06/18 19:22 06/06/18 19:40 Heparin - IVPUSH 5,000 unit PRN PRN Administration Heparin Heparin Sodium/Dextrose 25,000 units in 500 mls @ 20 mls/hr 06/07/18 23:45 23:45 Heparin Infusion - IVPB 1,000 units/hr TITR NIKKI 20 mls/hr Administration Protocol 1,000 UNITS/HR Dextrose/Sodium Chloride 1,000 mls @ 75 mls/hr 06/08/18 21:45 06/08/18 22:09 D5-Ns - IV 75 mls/hr ASDIR NIKKI Administration Levothyroxine Sodium 112 mcg 06/09/18 07:00 06/09/18 07:28 Synthroid - PO 112 mcg DAILY@0700 NIKKI Administration Loratadine 10 mg 06/07/18 10:00 06/09/18 09:49 Claritin - PO 10 mg DAILY NIKKI Administration Multivit/Ca Carb/B Cmplx/FA/Prenat 1 tablet 06/07/18 13:30 06/09/18 09:49 Nephro-Evangelina - PO 1 tablet DAILY NIKKI Administration Multivitamins/Minerals/Vitamin C 1 tab 06/07/18 10:00 06/09/18 09:49 Tab-A-Vit - PO 1 tab DAILY NIKKI Administration Non-Formulary Medication 8.7 gm 06/07/18 10:00 Beclomethasone Dipropionate [Qvar] IH BID NIKKI Non-Formulary Medication 62.5 mcg 06/07/18 10:00 Umeclidinium [place] [Incruse Ellipta] IH DAILY NIKKI Polyethylene Glycol 17 gm 06/08/18 22:00 06/09/18 09:52 Miralax (For Daily Use) - PO Not Given BID NIKKI Senna/Docusate Sodium 2 tablet 06/08/18 22:00 06/08/18 21:26 Pericolace - PO 06/09/18 17:44 2 tablet HS NIKKI Administration Thiamine HCl 100 mg 06/07/18 12:00 06/09/18 09:49 Vitamin B1 - PO 100 mg DAILY NIKKI Administration ASSESSMENT/PLAN 72 year-old male with a PMH significant for alcohol abuse x 40 years, peripheral neuropathy, asthma, h/o PEs and DVTs, HLD, hypothyroidism, and depression. Admitted for LLE DVT and acute alcohol withdrawal. LLE DVT --Duplex: extensive DVT throughout the common and superficial femoral arteries, as well as the popliteal and posterior tibial arteries, minimal flow seen --self dc'd Eliquis, but unreliable historian so unclear when last dose --on heparin drip, PTT goal 60-80 --Wells score high risk: CTA negative for PE --vascular consult still pending --discussed with IR, candidate for thrombectomy and/or IVC filter Hepatic mass --US: possible right lobe mass 2.7 x 2.7 x 1.7cm --CTA abdomen: possible nonfatty area but needs MRI Alcohol dependency Acute alcohol withdrawal --continue librium taper --detox Dr. Lee following Asthma --stable --duonebs PRN Peripheral neuropathy, alcohol induced --per , patient has to hold on to the wall or railings in order to walk and this is chronic; he stays in his home office on the first floor and self- transfers from bed to chair to bed; he can walk about 10 steps to get to his car ; he drives to a local tavern in [place] to drink Hyperlipidemia --hold atorvastatin pending hepatic workup Hypothyroidism --continue levothyroxine Depression --continue Lexapro FEN Fluids: PO intake adequate Electrolytes: replete as indicated Nutrition: NPO DVT prophylaxis: on heparin drip; PTT goal 60-80 Physical therapy Dispo: continues to require inpatient care. Plan is to transfer to [facility] for IR intervention today. Also awaiting transfer to [place]. Accepting vascular surgeon is Dr. Luis Manning. PCP/fly tier is Dr. Shakeel Lovell. Dr. Conway has accepted patient to his service, awaiting bed availability. Full code. Visit type - Emergency Visit Emergency Visit: Yes ED Registration Date: 06/06/18 Care time: The patient presented to the Emergency Department on the above date and was hospitalized for further evaluation of their emergent condition. - New Patient This patient is new to me today: No - Critical Care Critical Care patient: Yes Total Critical Care Time (in minutes): 60 Critical Care Statement: The care of this patient involved high complexity decision making to prevent further life threatening deterioration of the patient 's condition and/or to evaluate & treat vital organ system(s) failure or risk of failure.
[2018-06-09] MEDS ORDERED: HEPARIN NA (PORCINE) 5,000 UNITS/ML 1ML VIAL IVPUSH ONE (11:52)
--- NOTE | 2018-06-09 12:58 | CONSULT ---
- Consultation REQUESTING PROVIDER: CONSULT REQUEST: We have been asked to surgically evaluate this patient for ( LLE DVT). PCP:Benita Dodson HISTORY OF PRESENT ILLNESS: 72 y/o M w/ PMHx of Alcohol Abuse, Depression, Asthma, HLD, hypothyroidism, long history of DVTs/PE beginning in 1979. Pt states he has been having increasing swelling and redness in his LLE for the past few weeks. Reports self d/c'ing his Eliquis a few weeks ago, when asked why pt responds "I don't known, it was a bad decision". Per EMR pts reports pt has been hiding in the study and drinking excessively (whiskey/wine) . Currently pt reports pain is 2/10, increases to 3-4/10 with ambulation. Denies motor/sensory deficits, fever, dizziness, SOB, CP, palpitations, AP, N/V/ D, constipation, dysuria. Pts history reviewed with pt and pt's . Pt had first DVT/PE episode in [address] ([place]). Pt was started on Coumadin at that time. Reports another DVT in (unsure if it was provoked or unprovoked ), a third episode occurred after sinus surgery in 2004. PMHx: as above PSHx: sinus surgery 2004 Home Medications Medication Instructions Recorded Albuterol Sulfate Inhaler - 1 - 2 inh PO QID PRN 06/06/18 [Ventolin Hfa Inhaler -] Apixaban [Eliquis] 2 tab PO DAILY 06/06/18 Atorvastatin Ca [Lipitor] 10 mg PO HS 06/06/18 Beclomethasone Dipropionate [Qvar] 8.7 gm IH BID 06/06/18 Desloratadine 5 mg PO DAILY 06/06/18 Fluticasone Propionate [Flonase 1 spray NS BID 06/06/18 Allergy Relief] Gabapentin 100 mg PO QID 06/06/18 Levothyroxine [Synthroid -] 100 mcg PO DAILY 06/06/18 Multivit-Min/FA/Lycopen/Lutein 1 each PO DAILY 06/06/18 [Centrum Silver Tablet] Umeclidinium [place] [Incruse 62.5 mcg IH DAILY 06/06/18 Ellipta] Vit B Comp/C/Folic/Iron/Vit E 1 each PO DAILY 06/06/18 [Vitamin B Complex Tablet] Allergies Allergy/AdvReac Type Severity Reaction Status Date / Time codeine Allergy Verified 06/06/18 18:20 REVIEW OF SYSTEMS: CONSTITUTIONAL: Absent: fever, chills CARDIOVASCULAR: Absent: chest pain RESPIRATORY: Absent: cough GASTROINTESTINAL: Absent: abdominal pain PHYSICAL EXAM: GENERAL: Awake, alert, and fully oriented, in no acute distress. Laying in bed resting with eyes closed, open eyes to voice. HEAD: Normal with no signs of trauma. LUNGS: Unlabored on RA, No accessory muscle use. HEART: Regular rate and rhythm. ABDOMEN: Soft, nontender, not distended, normoactive bowel sounds, +large ventral hernia, reducible LOWER EXTREMITIES: LLE double in size as compared to rle. +erythema to knee. 2+ pitting edema to knee. Compartments full but soft. 5/5 b/l dorsiflexion/plantar flexion, hip flexion/extension. SILT b/l le's. No open ulcers to lle. +callus over 4th metatarsal head on plantar surface of R foot, no drainage or erythema. Vascular: 2+ b/l dp, 1+ b/l pt Vital Signs Temperature 98.6 F 06/09/18 10:00 Pulse Rate 93 H 06/09/18 10:00 Respiratory Rate 20 06/09/18 10:00 Blood Pressure 127/59 L 06/09/18 10:00 O2 Sat by Pulse Oximetry (%) 98 06/09/18 10:00 Lab Results WBC 6.2 K/mm3 (4.0-10.8) 06/09/18 07:00 RBC 3.54 M/mm3 (4.00-5.60) L 06/09/18 07:00 Hgb 12.1 GM/dl (11.7-16.9) 06/09/18 07:00 Hct 36.1 % (35.4-49) 06/09/18 07:00 MCV 102.1 fl (80-96) H 06/09/18 07:00 MCHC 33.6 g/dl (32.0-35.9) 06/09/18 07:00 RDW 12.4 % (11.9-15.9) 06/09/18 07:00 Plt Count 156 K/MM3 (134-434) 06/09/18 07:00 Sodium 139 mmol/L (136-145) 06/09/18 07:00 Potassium 3.5 mmol/L (3.5-5.1) D 06/09/18 07:00 Chloride 108 mmol/L (98-107) H 06/09/18 07:00 Carbon Dioxide 24 mmol/L (22-28) 06/09/18 07:00 Anion Gap 7 MMOL/L (8-16) L 06/09/18 07:00 BUN 7 mg/dl (7-18) 06/09/18 07:00 Creatinine 0.7 mg/dl (0.6-1.3) 06/09/18 07:00 Random Glucose 127 mg/dl (74-106) H D 06/09/18 07:00 Calcium 8.0 mg/dl (8.4-10.2) L 06/09/18 07:00 INR 1.90 (0.82-1.09) H D 06/06/18 18:24 Vascular Duplex 06/06/18: There is extensive deep venous thrombosis throughout the common and superficial arteries as well as the popliteal and posterior tibial arteries. Minimal flow is seen within these vessels. CTA chest (06/08/18): Limited examination as described above. No definite pulmonary emboli are identified. Correlate clinically for further evaluation and follow up. A/P: 72 y/o M w/ PMHx of Alcohol Abuse, Depression, Asthma, HLD, hypothyroidism , long history of DVTs/PE beginning in 1979, now admitted with extensive LLE DVT. Plan discussed with REESE Dodson, pt to be transferred to [facility] for IVC filter placement with IR (Dr Will) today, 06/09 and thrombectomy tomorrow, with IR (Dr Will). -Elevate LLE above level of heart at all times while at rest -Continue Heparin gtt, therapeutic -Frequent neurovascular checks LLE above d/w attending Dr Sarah
[2018-06-09] MEDS ORDERED: ONDANSETRON 4 MG/2 ML VIAL IVPUSH PRN (13:15)
[2018-06-09] MEDS ORDERED: chlordiazePOXIDE HCL 25 MG CAPSULE PO PRN (17:41)
[2018-06-09] MEDS ORDERED: HEPARIN INFUSION - 25,000 UNITS/500 ML INFUS.BAG IVPB SCH (17:41)
[2018-06-09] MEDS ORDERED: ALBUTEROL SO4 2.5/IPRATROPIUM 0.5 INH SOL 3 ML VIAL.NEB. NEB PRN (17:41)
[2018-06-09] MEDS ORDERED: HEPARIN NA (PORCINE) 5,000 UNITS/ML 1ML VIAL IVPUSH PRN ×4 (17:41)
--- NOTE | 2018-06-09 18:05 | HOSP ---
Physical Examination Vital Signs: Vital Signs Temperature 99.0 F 06/09/18 14:00 Pulse Rate 93 H 06/09/18 14:00 Respiratory Rate 19 06/09/18 14:00 Blood Pressure 109/53 L 06/09/18 14:00 O2 Sat by Pulse Oximetry (%) 98 06/09/18 14:00 Constitutional: Yes: Calm HENT: Yes: WNL Neck: Yes: Supple Cardiovascular: Yes: Regular Rate and Rhythm Respiratory: Yes: Regular Gastrointestinal: Yes: Normal Bowel Sounds Labs: CBC, BMP 06/09/18 07:00 06/09/18 07:00 Hospitalist Encounter Assessment: Received signout on this patient from [facility] Patient transferred from [facility] to [facility] for possible vascular procedure tomorrow 2/2 to extensive left leg dvt with Dr. Venegas Patient has been accepted to [facility]. If bed becomes available at [facility], patient can be transferred to [facility] for this vascular procedure. (see prior notes)
[2018-06-09] MEDS: DEXTROSE 5%-NORMAL SALINE 1,000 ML IV SCH (18:32)
[2018-06-09] MEDS: PATIENT'S OWN MEDICATION (NON-FORMULARY) (Beclomethasone Dipropionate [Qvar] 8.7 GM) IH SCH ×2 (18:34→18:35)
[2018-06-09] MEDS: PATIENT'S OWN MEDICATION (NON-FORMULARY) (Umeclidinium Bromide [Incruse Ellipta] 62.5 MCG) IH SCH (18:35)
[2018-06-09 21:44] LABS: HEMATOCRIT 36.7 % (35.4-49); HEMOGLOBIN 12.4 GM/dL (11.7-16.9); MCH 34.4 pg (25.7-33.7); MCHC 33.8 g/dl (32.0-35.9); MEAN CELL VOLUME 101.6 fl (80-96); PLATELET COUNT 168 K/MM3 (134-434); RBC 3.62 M/mm3 (4.00-5.60); RDW 13.5 % (11.9-15.9); WHITE BLOOD COUNT 5.9 K/mm3 (4.0-10.0)
[2018-06-09] MEDS ORDERED: PATIENT'S OWN MEDICATION (NON-FORMULARY) (Beclomethasone Dipropionate [Qvar] 8.7 GM) IH SCH (22:00)
[2018-06-09] MEDS: SENNOSIDES/DOCUSATE COMBO (SENNA PLUS) TABLET (UD) PO SCH (22:06)
[2018-06-09] MEDS: ATORVASTATIN CA 10 MG TABLET (FP) PO SCH (22:06)
[2018-06-09] MEDS ORDERED: chlordiazePOXIDE 5 MG CAPSULE PO SCH (23:00)
[2018-06-10] MEDS: DEXTROSE 5%-NORMAL SALINE 1,000 ML IV SCH ×2 (02:56→16:50)
[2018-06-10] MEDS: HEPARIN INFUSION - 25,000 UNITS/500 ML INFUS.BAG IVPB SCH (02:58)
[2018-06-10] MEDS: chlordiazePOXIDE 5 MG CAPSULE PO SCH ×3 (06:47→17:39)
[2018-06-10] MEDS: LEVOTHYROXINE NA 112 MCG TABLET (FP) PO SCH (06:47)
[2018-06-10 07:39] LABS: BASO % 0.9 % (0-2.0); EOS % 14.1 % (0-4.5); HEMATOCRIT 37.9 % (35.4-49); HEMOGLOBIN 12.9 GM/dL (11.7-16.9); LYMPH % 18.2 % (8-40); MCH 34.9 pg (25.7-33.7); MEAN CELL VOLUME 102.8 fl (80-96); MEAN PLT VOLUME 8.9 fl (7.5-11.1); MONO % 15.1 % (3.8-10.2); NEUT % 51.7 % (42.8-82.8); PLATELET COUNT 172 K/MM3 (134-434); RBC 3.68 M/mm3 (4.00-5.60); RDW 13.5 % (11.9-15.9); WHITE BLOOD COUNT 5.8 K/mm3 (4.0-10.0)
[2018-06-10 08:41] LABS: ALBUMIN 2.4 g/dl (3.4-5.0); ALK PHOS 64 U/L (45-117); ANION GAP 8 MMOL/L (8-16); BILIRUBIN,TOTAL 0.6 mg/dL (0.2-1); BLOOD UREA NITROGEN 4 mg/dL (7-18); CHLORIDE 112 mmol/L (98-107); CO2 24 mmol/L (21-32); CREATININE 0.7 mg/dL (0.55-1.3); GLUCOSE,RANDOM 96 mg/dL (74-106); MAGNESIUM 2.1 mg/dL (1.8-2.4); POTASSIUM 4.2 mmol/L (3.5-5.1); SGOT/AST 40 U/L (15-37); SGPT/ALT 33 U/L (13-61); SODIUM 143 mmol/L (136-145); TOT PROT 4.9 g/dl (6.4-8.2)
[2018-06-10] MEDS ORDERED: PATIENT'S OWN MEDICATION (NON-FORMULARY) (Umeclidinium Bromide [Incruse Ellipta] 62.5 MCG) IH SCH (10:00)
[2018-06-10] MEDS: LORATADINE 10 MG TABLET PO SCH ×2 (11:29→14:31)
[2018-06-10] MEDS: POLYETHYLENE GLYCOL 3350 119 GM BTL PO SCH ×2 (11:29→22:10)
[2018-06-10] MEDS: VITAMIN B COMP W-C 1 EA TABLET PO SCH ×2 (11:30→14:32)
[2018-06-10] MEDS: MULTIVITAMINS (DAILY MVI) TABLET (FP) PO SCH ×2 (11:30→14:32)
[2018-06-10] MEDS: THIAMINE HCL 100 MG TABLET (FP) PO SCH ×2 (11:30→14:31)
[2018-06-10] MEDS: GABAPENTIN 100 MG CAPSULE (FP) PO SCH ×4 (11:30→22:10)
[2018-06-10] MEDS: FLUTICASONE PROP 0.05% 16 GM NASAL SPRAY NS SCH ×2 (14:40→22:09)
--- NOTE | 2018-06-10 19:01 | PN ---
Physical Exam: SUBJECTIVE: Patient seen and examined s/p ivc filter placement. in no acute distress. appears to have tolerated procedure well. OBJECTIVE: left message for Shakeel Lovell MD, patient's pcp. received message. As per dr. lovell, he is making arrangements for patient to be transferred to [place] for thrombectomy and to further address patient's drinking problem. Patient is well known to him. Dr. Lovell aware that patient is s/p ivc filter today. Vital Signs Period Temp Pulse Resp BP Sys/Mello Pulse Ox Last 24 Hr 97.9 F-98.3 F 71-93 16-20 113-146/58-79 97-100 GENERAL: The patient is awake, alert, and fully oriented, disheveled. HEAD: Normal with no signs of trauma. EYES: PERRL, extraocular movements intact, sclera anicteric, conjunctiva clear. No ptosis. ENT: Ears normal, nares patent, oropharynx clear without exudates NECK: Trachea midline, full range of motion, supple. LUNGS: Breath sounds equal, clear to auscultation bilaterally HEART: Regular rate and rhythm ABDOMEN: Soft, nontender, nondistended, normoactive bowel sounds EXTREMITIES: no edema. NEUROLOGICAL: Normal speech, gait not observed. PSYCH: Normal mood, normal affect. SKIN: Warm, dry, normal turgor, no rashes or lesions noted Laboratory Results - last 24 hr 06/09/18 06/09/18 06/10/18 20:00 20:25 06:15 WBC 5.9 RBC 3.62 L Hgb 12.4 Hct 36.7 MCV 101.6 H MCH 34.4 H MCHC 33.8 RDW 13.5 Plt Count 168 MPV 9.0 Absolute Neuts (auto) Total Counted Neutrophils % Neutrophils % (Manual) Band Neutrophils % Lymphocytes % Lymphocytes % (Manual) Monocytes % Monocytes % (Manual) Eosinophils % Eosinophils % (Manual) Basophils % Myelocytes % (Man) Nucleated RBC % Metamyelocytes PTT (Actin FS) 71.4 H 72.7 H Sodium Potassium Chloride Carbon Dioxide Anion Gap BUN Creatinine Creat Clearance w eGFR Random Glucose Calcium Magnesium Total Bilirubin AST ALT Alkaline Phosphatase Total Protein Albumin 06/10/18 06/10/18 06:15 06:15 WBC 5.8 RBC 3.68 L Hgb 12.9 Hct 37.9 MCV 102.8 H MCH 34.9 H MCHC 34.0 RDW 13.5 Plt Count 172 MPV 8.9 Absolute Neuts (auto) 3.0 Total Counted 100 Neutrophils % 51.7 Neutrophils % (Manual) 50.0 Band Neutrophils % 1.0 Lymphocytes % 18.2 Lymphocytes % (Manual) 25.0 Monocytes % 15.1 H Monocytes % (Manual) 6 Eosinophils % 14.1 H Eosinophils % (Manual) 14.0 H Basophils % 0.9 Myelocytes % (Man) 3 H Nucleated RBC % 0 Metamyelocytes 1 PTT (Actin FS) Sodium 143 Potassium 4.2 Chloride 112 H Carbon Dioxide 24 Anion Gap 8 BUN 4 L Creatinine 0.7 Creat Clearance w eGFR > 60 Random Glucose 96 Calcium 8.0 L Magnesium 2.1 Total Bilirubin 0.6 AST 40 H ALT 33 Alkaline Phosphatase 64 Total Protein 4.9 L Albumin 2.4 L Active Medications Generic Name Dose Route Start Last Admin Trade Name Freq PRN Reason Stop Dose Admin Albuterol/Ipratropium 1 amp 06/09/18 17:41 06/10/18 07:06 Duoneb - NEB 1 amp Q6H PRN Administration SHORTNESS OF BREATH Atorvastatin Calcium 10 mg 06/09/18 22:00 06/09/18 22:06 Lipitor - PO 10 mg HS NIKKI Administration Fluticasone Propionate 1 spray 06/09/18 22:00 06/10/18 14:40 Flonase - NS 1 spray BID NIKKI Administration Gabapentin 100 mg 06/09/18 18:00 06/10/18 17:39 Neurontin - PO 100 mg QID NIKKI Administration Heparin Sodium (Porcine) 1,000 unit 06/09/18 17:41 Heparin - IVPUSH PRN PRN Heparin Heparin Sodium (Porcine) 5,000 unit 06/09/18 17:41 Heparin - IVPUSH PRN PRN Heparin Dextrose/Sodium Chloride 1,000 mls @ 75 mls/hr 06/09/18 17:41 06/10/18 16:50 D5-Ns - IV 75 mls/hr ASDIR NIKKI Administration Heparin Sodium/Dextrose 25,000 units in 500 mls @ 20 mls/hr 06/10/18 03:00 09:02 Heparin Infusion - IVPB 1,100 units/hr TITR NIKKI 22 mls/hr Titration Protocol 1,000 UNITS/HR Levothyroxine Sodium 112 mcg 06/10/18 07:00 06/10/18 06:47 Synthroid - PO 112 mcg DAILY@0700 NIKKI Administration Loratadine 10 mg 06/10/18 10:00 06/10/18 14:31 Claritin - PO 10 mg DAILY NIKKI Administration Multivit/Ca Carb/B Cmplx/FA/Prenat 1 tablet 06/10/18 10:00 06/10/18 14:32 Nephro-Evangelina - PO 1 tablet DAILY NIKKI Administration Multivitamins/Minerals/Vitamin C 1 tab 06/10/18 10:00 06/10/18 14:32 Tab-A-Vit - PO 1 tab DAILY NIKKI Administration Non-Formulary Medication 8.7 gm 06/09/18 22:00 Beclomethasone Dipropionate [Qvar] IH BID NIKKI Non-Formulary Medication 62.5 mcg 06/10/18 10:00 Umeclidinium [place] [Incruse Ellipta] IH DAILY NIKKI Ondansetron HCl 4 mg 06/09/18 13:15 Zofran Injection IVPUSH Q6H PRN NAUSEA Polyethylene Glycol 17 gm 06/09/18 22:00 06/10/18 11:29 Miralax (For Daily Use) - PO Not Given BID NIKKI Senna/Docusate Sodium 2 tablet 06/09/18 22:00 06/09/18 22:06 Pericolace - PO 2 tablet HS NIKKI Administration Thiamine HCl 100 mg 06/10/18 10:00 06/10/18 14:31 Vitamin B1 - PO 100 mg DAILY NIKKI Administration ASSESSMENT/PLAN: Patient is a 72 year old male with a significant past medical history of Alcohol Abuse, Depression, Asthma, HLD, hypothyroidism, long history of DVTs/PE beginning in 1979. Patient was on Eliquis for left lower ex edema but has not been taking it secondary to chronic ETOH abuse. Patient admitted for both LLE DVT and ETOH abuse. Vasular: LLE DVT. extensive DVT throughout common and superficial/femoral, popliteal and posterior tibial arteries. Non compliant with Eliquis at home secondary to ETOH abuse. reports that patient drinks in excess and non compliant with medications. Started on heparin drip Vascular following s/p IVC filter today. possible thrombectomy tomorrow here or at [place]. CTA negative for PE GI: Hepatic mass Possible right lobe mass. will need mri to further evaluate. Psyche ETOH abuse with acute withdrawal On a librium taper. Followed by detox. Card: Hyperlipidemia On statin therapy, holding for hepatic workup. fen tolerating po monitor electrolytes low salt diet. npo for possible thrombectomy prophy heparin drip. ivc filter protonix disposition. full code. possible transfer to [place] pending bed availability. Accepting vascular surgeon is Dr. Luis Manning. Visit type - Emergency Visit Emergency Visit: Yes ED Registration Date: 06/06/18 Care time: The patient presented to the Emergency Department on the above date and was hospitalized for further evaluation of their emergent condition. - New Patient This patient is new to me today: No - Critical Care Critical Care patient: No - Discharge Referral Referred to [facility] Med P.C.: No
[2018-06-10] MEDS ORDERED: PT OWN MED DRAWER 7, Y5N ONE (21:55)
[2018-06-10] MEDS: ATORVASTATIN CA 10 MG TABLET (FP) PO SCH (22:09)
[2018-06-10] MEDS: SENNOSIDES/DOCUSATE COMBO (SENNA PLUS) TABLET (UD) PO SCH (22:10)
[2018-06-11] MEDS: LEVOTHYROXINE NA 112 MCG TABLET (FP) PO SCH (06:16)
[2018-06-11] MEDS: DEXTROSE 5%-NORMAL SALINE 1,000 ML IV SCH ×2 (06:33→17:16)
[2018-06-11 07:29] LABS: BASO % 1.1 % (0-2.0); EOS % 11.9 % (0-4.5); HEMATOCRIT 38.2 % (35.4-49); HEMOGLOBIN 12.9 GM/dL (11.7-16.9); LYMPH % 19.1 % (8-40); MCH 34.6 pg (25.7-33.7); MCHC 33.8 g/dl (32.0-35.9); MEAN CELL VOLUME 102.3 fl (80-96); MEAN PLT VOLUME 8.9 fl (7.5-11.1); MONO % 15.3 % (3.8-10.2); NEUT % 52.6 % (42.8-82.8); PLATELET COUNT 155 K/MM3 (134-434); RBC 3.73 M/mm3 (4.00-5.60); RDW 13.6 % (11.9-15.9); WHITE BLOOD COUNT 5.1 K/mm3 (4.0-10.0)
[2018-06-11 07:57] LABS: ALBUMIN 2.4 g/dl (3.4-5.0); ALK PHOS 58 U/L (45-117); ANION GAP 9 MMOL/L (8-16); BILIRUBIN,TOTAL 0.4 mg/dL (0.2-1); BLOOD UREA NITROGEN 6 mg/dL (7-18); CALCIUM 7.8 mg/dL (8.5-10.1); CHLORIDE 113 mmol/L (98-107); CO2 22 mmol/L (21-32); CREATININE 0.7 mg/dL (0.55-1.3); GLUCOSE,RANDOM 97 mg/dL (74-106); MAGNESIUM 1.8 mg/dL (1.8-2.4); POTASSIUM 4.2 mmol/L (3.5-5.1); SGOT/AST 35 U/L (15-37); SGPT/ALT 32 U/L (13-61); SODIUM 144 mmol/L (136-145); TOT PROT 4.8 g/dl (6.4-8.2)
[2018-06-11] MEDS: POLYETHYLENE GLYCOL 3350 119 GM BTL PO SCH ×2 (09:47→22:00)
[2018-06-11] MEDS: GABAPENTIN 100 MG CAPSULE (FP) PO SCH ×4 (09:47→22:19)
[2018-06-11] MEDS: LORATADINE 10 MG TABLET PO SCH (09:47)
[2018-06-11] MEDS: VITAMIN B COMP W-C 1 EA TABLET PO SCH (09:47)
[2018-06-11] MEDS: THIAMINE HCL 100 MG TABLET (FP) PO SCH (09:48)
[2018-06-11] MEDS: MULTIVITAMINS (DAILY MVI) TABLET (FP) PO SCH (09:48)
[2018-06-11] MEDS: FLUTICASONE PROP 0.05% 16 GM NASAL SPRAY NS SCH ×2 (09:58→21:55)
[2018-06-11] MEDS: HEPARIN INFUSION - 25,000 UNITS/500 ML INFUS.BAG IVPB SCH ×2 (09:59→21:56)
[2018-06-11 14:55] VITALS: BMI 22.5
[2018-06-11] MEDS ORDERED: ALTEPLASE CVP ONE (15:30)
[2018-06-11] MEDS ORDERED: SODIUM CHLORIDE CVP ONE (15:30)
[2018-06-11] MEDS ORDERED: HEPARIN IV ONE (15:45)
[2018-06-11] MEDS ORDERED: SODIUM CHLORIDE IV ONE (15:45)
[2018-06-11] MEDS ORDERED: PT OWN MED DRAWER 7, Y5N ONE (20:58)
--- NOTE | 2018-06-11 21:16 | PN ---
Physical Exam: SUBJECTIVE: Patient seen and examined at the bedside. OBJECTIVE: patient scheduled for thrombectomy today, however yet not done on a heparin gtt Vital Signs Period Temp Pulse Resp BP Sys/Mello Pulse Ox Last 24 Hr 98.0 F-99.2 F 74-108 16-18 106-142/55-86 97-100 GENERAL: The patient is awake, alert, and fully oriented, disheveled. HEAD: Normal with no signs of trauma. EYES: PERRL, extraocular movements intact, sclera anicteric, conjunctiva clear. No ptosis. ENT: Ears normal, nares patent, oropharynx clear without exudates NECK: Trachea midline, full range of motion, supple. LUNGS: Breath sounds equal, clear to auscultation bilaterally HEART: Regular rate and rhythm ABDOMEN: Soft, nontender, nondistended, normoactive bowel sounds EXTREMITIES: no edema. NEUROLOGICAL: Normal speech, gait not observed. PSYCH: Normal mood, normal affect. SKIN: Warm, dry, normal turgor, no rashes or lesions noted Laboratory Results - last 24 hr 06/11/18 06/11/18 06/11/18 06:00 06:00 06:00 WBC 5.1 RBC 3.73 L Hgb 12.9 Hct 38.2 MCV 102.3 H MCH 34.6 H MCHC 33.8 RDW 13.6 Plt Count 155 MPV 8.9 Absolute Neuts (auto) 2.7 Neutrophils % 52.6 Lymphocytes % 19.1 Monocytes % 15.3 H Eosinophils % 11.9 H Basophils % 1.1 Nucleated RBC % 0 PTT (Actin FS) 52.7 H Sodium 144 Potassium 4.2 Chloride 113 H Carbon Dioxide 22 Anion Gap 9 BUN 6 L Creatinine 0.7 Creat Clearance w eGFR > 60 Random Glucose 97 Calcium 7.8 L Magnesium 1.8 Total Bilirubin 0.4 AST 35 ALT 32 Alkaline Phosphatase 58 Total Protein 4.8 L Albumin 2.4 L Active Medications Generic Name Dose Route Start Last Admin Trade Name Freq PRN Reason Stop Dose Admin Albuterol/Ipratropium 1 amp 06/09/18 17:41 06/10/18 07:06 Duoneb - NEB 1 amp Q6H PRN Administration SHORTNESS OF BREATH Atorvastatin Calcium 10 mg 06/09/18 22:00 06/10/18 22:09 Lipitor - PO 10 mg HS NIKKI Administration Escitalopram Oxalate 20 mg 06/12/18 10:00 Lexapro - PO DAILY NIKKI Fluticasone Propionate 1 spray 06/09/18 22:00 06/11/18 09:58 Flonase - NS 1 spray BID NIKKI Administration Gabapentin 100 mg 06/09/18 18:00 06/11/18 17:15 Neurontin - PO 100 mg QID NIKKI Administration Heparin Sodium (Porcine) 1,000 unit 06/09/18 17:41 Heparin - IVPUSH PRN PRN Heparin Heparin Sodium (Porcine) 5,000 unit 06/09/18 17:41 Heparin - IVPUSH PRN PRN Heparin Dextrose/Sodium Chloride 1,000 mls @ 75 mls/hr 06/09/18 17:41 06/11/18 17:16 D5-Ns - IV 75 mls/hr ASDIR NIKKI Administration Heparin Sodium/Dextrose 25,000 units in 500 mls @ 20 mls/hr 06/10/18 03:00 09:59 Heparin Infusion - IVPB Not Given TITR [facility] Protocol 1,000 UNITS/HR Levothyroxine Sodium 112 mcg 06/10/18 07:00 06/11/18 06:16 Synthroid - PO Not Given DAILY@0700 [facility] Loratadine 10 mg 06/10/18 10:00 06/11/18 09:47 Claritin - PO Not Given DAILY [facility] Multivit/Ca Carb/B Cmplx/FA/Prenat 1 tablet 06/10/18 10:00 06/11/18 09:47 Nephro-Evangelina - PO Not Given DAILY [facility] Multivitamins/Minerals/Vitamin C 1 tab 06/10/18 10:00 06/11/18 09:48 Tab-A-Vit - PO Not Given DAILY [facility] Non-Formulary Medication 8.7 gm 06/09/18 22:00 Beclomethasone Dipropionate [Qvar] IH BID [facility] Non-Formulary Medication 62.5 mcg 06/10/18 10:00 Umeclidinium [place] [Incruse Ellipta] IH DAILY [facility] Ondansetron HCl 4 mg 06/09/18 13:15 Zofran Injection IVPUSH Q6H PRN NAUSEA Polyethylene Glycol 17 gm 06/09/18 22:00 06/11/18 09:47 Miralax (For Daily Use) - PO Not Given BID NIKKI Senna/Docusate Sodium 2 tablet 06/09/18 22:00 06/10/18 22:10 Pericolace - PO 2 tablet HS NIKKI Administration Thiamine HCl 100 mg 06/10/18 10:00 06/11/18 09:48 Vitamin B1 - PO Not Given DAILY NIKKI ASSESSMENT/PLAN: Patient is a 72 year old male with a significant past medical history of Alcohol Abuse, Depression, Asthma, HLD, hypothyroidism, long history of DVTs/PE beginning in 1979. Patient was on Eliquis for left lower ex edema but has not been taking it secondary to chronic ETOH abuse. Patient admitted for both LLE DVT and ETOH abuse. Vascular: LLE DVT. extensive DVT throughout common and superficial/femoral, popliteal and posterior tibial arteries. Non compliant with Eliquis at home secondary to ETOH abuse. reports that patient drinks in excess and non compliant with medications. Started on heparin drip Vascular following s/p IVC filter on 06/10/18. thrombectomy attempted bu IR. CTA negative for PE GI: Hepatic mass Possible right lobe mass. will need mri to further evaluate. Psyche ETOH abuse with acute withdrawal On a librium taper. completed. Followed by detox. Card: Hyperlipidemia On statin therapy, holding for hepatic workup. fen tolerating po monitor electrolytes low salt diet. npo for possible re-attempt at thrombectomy prophy heparin drip. ivc filter protonix disposition. full code. possible transfer to [place] pending bed availability. Accepting vascular surgeon is Dr. Luis Manning. Visit type - Emergency Visit Emergency Visit: Yes ED Registration Date: 06/06/18 Care time: The patient presented to the Emergency Department on the above date and was hospitalized for further evaluation of their emergent condition. - New Patient This patient is new to me today: No - Critical Care Critical Care patient: No - Discharge Referral Referred to [facility] Med P.C.: No
[2018-06-11] MEDS: ATORVASTATIN CA 10 MG TABLET (FP) PO SCH (21:55)
[2018-06-11] MEDS: SENNOSIDES/DOCUSATE COMBO (SENNA PLUS) TABLET (UD) PO SCH (22:20)
[2018-06-12] MEDS: HEPARIN INFUSION - 25,000 UNITS/500 ML INFUS.BAG IVPB SCH ×2 (05:18→10:04)
[2018-06-12] MEDS: LEVOTHYROXINE NA 112 MCG TABLET (FP) PO SCH (06:30)
[2018-06-12] MEDS: DEXTROSE 5%-NORMAL SALINE 1,000 ML IV SCH (06:31)
[2018-06-12 08:44] LABS: ALBUMIN 2.3 g/dl (3.4-5.0); ALK PHOS 59 U/L (45-117); ANION GAP 9 MMOL/L (8-16); BILIRUBIN,TOTAL 0.6 mg/dL (0.2-1); BLOOD UREA NITROGEN 6 mg/dL (7-18); CALCIUM 7.8 mg/dL (8.5-10.1); CHLORIDE 112 mmol/L (98-107); CO2 24 mmol/L (21-32); CREATININE 0.7 mg/dL (0.55-1.3); GLUCOSE,RANDOM 94 mg/dL (74-106); MAGNESIUM 1.8 mg/dL (1.8-2.4); POTASSIUM 4.4 mmol/L (3.5-5.1); SGOT/AST 26 U/L (15-37); SGPT/ALT 27 U/L (13-61); SODIUM 145 mmol/L (136-145); TOT PROT 4.7 g/dl (6.4-8.2)
[2018-06-12 08:49] LABS: BASO % 0.8 % (0-2.0); EOS % 10.9 % (0-4.5); HEMOGLOBIN 12.5 GM/dL (11.7-16.9); LYMPH % 17.3 % (8-40); MCH 35.1 pg (25.7-33.7); MCHC 34.8 g/dl (32.0-35.9); MEAN CELL VOLUME 100.6 fl (80-96); MEAN PLT VOLUME 9.2 fl (7.5-11.1); MONO % 15.9 % (3.8-10.2); NEUT % 55.1 % (42.8-82.8); PLATELET COUNT 181 K/MM3 (134-434); RBC 3.58 M/mm3 (4.00-5.60); RDW 13.5 % (11.9-15.9); WHITE BLOOD COUNT 5.4 K/mm3 (4.0-10.0)
[2018-06-12] MEDS: LORATADINE 10 MG TABLET PO SCH ×2 (09:53→12:51)
[2018-06-12] MEDS: VITAMIN B COMP W-C 1 EA TABLET PO SCH ×2 (09:54→12:52)
[2018-06-12] MEDS: POLYETHYLENE GLYCOL 3350 119 GM BTL PO SCH ×3 (09:54→21:46)
[2018-06-12] MEDS: GABAPENTIN 100 MG CAPSULE (FP) PO SCH ×4 (09:54→21:41)
[2018-06-12] MEDS: THIAMINE HCL 100 MG TABLET (FP) PO SCH ×2 (09:55→12:51)
[2018-06-12] MEDS: MULTIVITAMINS (DAILY MVI) TABLET (FP) PO SCH ×2 (09:55→12:53)
[2018-06-12] MEDS: FLUTICASONE PROP 0.05% 16 GM NASAL SPRAY NS SCH ×2 (09:58→21:40)
[2018-06-12] MEDS ORDERED: ESCITALOPRAM OXALATE 20 MG TABLET (FP) PO SCH ×2 (10:00→11:31)
--- NOTE | 2018-06-12 10:52 | PN ---
Physical Exam: SUBJECTIVE: Patient seen and examined at the bedside. OBJECTIVE: discussed with IR. possible new catheter needed for thrombectomy. new clots in femoral and iliac vein and difficulty accessing clots. Vital Signs Period Temp Pulse Resp BP Sys/Mello Pulse Ox Last 24 Hr 97.7 F-99.2 F 74-108 16-18 110-142/55-86 97-100 GENERAL: The patient is awake, alert, and fully oriented, disheveled. HEAD: Normal with no signs of trauma. EYES: PERRL, extraocular movements intact, sclera anicteric, conjunctiva clear. No ptosis. ENT: Ears normal, nares patent, oropharynx clear without exudates NECK: Trachea midline, full range of motion, supple. LUNGS: Breath sounds equal, clear to auscultation bilaterally HEART: Regular rate and rhythm ABDOMEN: Soft, nontender, nondistended, normoactive bowel sounds EXTREMITIES: no edema. NEUROLOGICAL: Normal speech, gait not observed. PSYCH: Normal mood, normal affect. SKIN: Warm, dry, normal turgor, no rashes or lesions noted Laboratory Results - last 24 hr 06/12/18 06/12/18 06/12/18 06:45 06:45 06:45 WBC 5.4 RBC 3.58 L Hgb 12.5 Hct 36.0 MCV 100.6 H MCH 35.1 H MCHC 34.8 RDW 13.5 Plt Count 181 MPV 9.2 Absolute Neuts (auto) 3.0 Neutrophils % 55.1 Lymphocytes % 17.3 Monocytes % 15.9 H Eosinophils % 10.9 H Basophils % 0.8 Nucleated RBC % 0 PTT (Actin FS) 47.8 H Sodium 145 Potassium 4.4 Chloride 112 H Carbon Dioxide 24 Anion Gap 9 BUN 6 L Creatinine 0.7 Creat Clearance w eGFR > 60 Random Glucose 94 Calcium 7.8 L Magnesium 1.8 Total Bilirubin 0.6 AST 26 ALT 27 Alkaline Phosphatase 59 Total Protein 4.7 L Albumin 2.3 L Active Medications Generic Name Dose Route Start Last Admin Trade Name Freq PRN Reason Stop Dose Admin Albuterol/Ipratropium 1 amp 06/09/18 17:41 06/10/18 07:06 Duoneb - NEB 1 amp Q6H PRN Administration SHORTNESS OF BREATH Atorvastatin Calcium 10 mg 06/09/18 22:00 06/11/18 21:55 Lipitor - PO 10 mg HS NIKKI Administration Escitalopram Oxalate 20 mg 06/12/18 10:00 06/12/18 09:54 Lexapro - PO Not Given DAILY NIKKI Fluticasone Propionate 1 spray 06/09/18 22:00 06/12/18 09:58 Flonase - NS 1 spray BID NIKKI Administration Gabapentin 100 mg 06/09/18 18:00 06/12/18 09:54 Neurontin - PO Not Given QID NIKKI Heparin Sodium (Porcine) 1,000 unit 06/09/18 17:41 06/12/18 09:59 Heparin - IVPUSH 1,000 unit PRN PRN Administration Heparin Heparin Sodium (Porcine) 5,000 unit 06/09/18 17:41 Heparin - IVPUSH PRN PRN Heparin Dextrose/Sodium Chloride 1,000 mls @ 75 mls/hr 06/09/18 17:41 06/12/18 06:31 D5-Ns - IV 75 mls/hr ASDIR NIKKI Administration Heparin Sodium/Dextrose 25,000 units in 500 mls @ 20 mls/hr 06/10/18 03:00 10:04 Heparin Infusion - IVPB 1,200 units/hr TITR NIKKI 24 mls/hr Administration Protocol 1,000 UNITS/HR Levothyroxine Sodium 112 mcg 06/10/18 07:00 06/12/18 06:30 Synthroid - PO Not Given DAILY@0700 NIKKI Loratadine 10 mg 06/10/18 10:00 06/12/18 09:53 Claritin - PO Not Given DAILY [facility] Multivit/Ca Carb/B Cmplx/FA/Prenat 1 tablet 06/10/18 10:00 06/12/18 09:54 Nephro-Evangelina - PO Not Given DAILY [facility] Multivitamins/Minerals/Vitamin C 1 tab 06/10/18 10:00 06/12/18 09:55 Tab-A-Vit - PO Not Given DAILY [facility] Non-Formulary Medication 8.7 gm 06/09/18 22:00 Beclomethasone Dipropionate [Qvar] IH BID NIKKI Non-Formulary Medication 62.5 mcg 06/10/18 10:00 Umeclidinium [place] [Incruse Ellipta] IH DAILY [facility] Ondansetron HCl 4 mg 06/09/18 13:15 Zofran Injection IVPUSH Q6H PRN NAUSEA Polyethylene Glycol 17 gm 06/09/18 22:00 06/12/18 09:54 Miralax (For Daily Use) - PO Not Given BID NIKKI Senna/Docusate Sodium 2 tablet 06/09/18 22:00 06/11/18 22:20 Pericolace - PO 2 tablet HS NIKKI Administration Thiamine HCl 100 mg 06/10/18 10:00 06/12/18 09:55 Vitamin B1 - PO Not Given DAILY NIKKI ASSESSMENT/PLAN: Patient is a 72 year old male with a significant past medical history of Alcohol Abuse, Depression, Asthma, HLD, hypothyroidism, long history of DVTs/PE beginning in 1979. Patient was on Eliquis for left lower ex edema but has not been taking it secondary to chronic ETOH abuse. Patient admitted for both LLE DVT and ETOH abuse. Vascular: LLE DVT. extensive DVT throughout common and superficial/femoral, popliteal and posterior tibial arteries. Non compliant with Eliquis at home secondary to ETOH abuse. reports that patient drinks in excess and non compliant with medications. Started on heparin drip Vascular following s/p IVC filter on 06/10/18. thrombectomy attempted but IR unable to bypass catheter. will reattempt with new catheter per IR. CTA negative for PE GI: Hepatic mass Possible right lobe mass. MRI ordered to further evaluate. Psyche ETOH abuse with acute withdrawal ibrium taper completed. Followed by detox. Pulm: COPD exacerbation started on solumedrol taper seen by pulmonary Card: Hyperlipidemia On statin therapy fen tolerating po monitor electrolytes low salt diet. prophy heparin drip. ivc filter protonix disposition. full code. possible transfer to [place] pending bed availability. Accepting vascular surgeon is Dr. Luis Manning. Visit type - Emergency Visit Emergency Visit: Yes ED Registration Date: 06/06/18 Care time: The patient presented to the Emergency Department on the above date and was hospitalized for further evaluation of their emergent condition. - New Patient This patient is new to me today: No - Critical Care Critical Care patient: No - Discharge Referral Referred to [facility] Med P.C.: No
[2018-06-12] MEDS ORDERED: ESCITALOPRAM OXALATE 20 MG TABLET (FP) PO ONE (11:39)
[2018-06-12] MEDS ORDERED: methylPREDNISolone NA SUCC 40 MG/1 ML VIAL IVPUSH ONE (12:00)
[2018-06-12] MEDS ORDERED: PT OWN MED DRAWER 7, Y5N ONE (12:45)
[2018-06-12] MEDS ORDERED: ALBUTEROL SO4 0.083% IH SOL 2.5 MG/3 ML VIAL.NEB. NEB PRN (12:56)
--- NOTE | 2018-06-12 12:58 | CON.PULM ---
Consult Consult Specialty:: PULMONARY Referred by:: GUMARO Reason for Consultation:: COPD/ASTHMA - History of Present Illness Chief Complaint: SOB/WHEEZE History of Present Illness: This is a 72 y/o man with a PMHx of Alcohol Abuse, PE ([place], 1979), Depression, Asthma, HLD, Thyroid Disorder. Who presents to the ED L- leg pain, swelling and redness x several weeks. Patient's states " he stopped taking his Eliquis for several weeks and has been excessively drinking." The reports that the patient has been drinking pints of whiskey that he hides in their study.The patient admits to drinking 3-4 glasses of wine several times a week. The spouse reports that he has stopped taking his antidepressants for about a month. She reports that he has been unkempt, and has had a decreased appetite for several weeks. Patient denies fever, dizziness, SOB, CP, palpitations, AP, N/V/D, constipation, dysuria. - History Source History Provided By: Patient, Family Member, Medical Record Limitations to Obtaining History: Clinical Condition - Past Medical History KENNEL MANAGER: Yes: Peripheral Neuropathy Cardio/Vascular: Yes: Hyperlipdemia Pulmonary: Yes: Asthma Gastrointestinal: Yes: Other (Fatty liver) Psych: Yes: Addictions, Depression Endocrine: Yes: Diabetes Mellitus - Past Surgical History Past Surgical History: Yes: Hernia Repair (Umbilical) - Alcohol/Substance Use Hx Alcohol Use: Yes Number of Drinks Daily: 6 (pint of Whiskey, 3-4 glasses of Wine) History of Substance Use: reports: None - Smoking History Smoking history: Never smoked Have you smoked in the past 12 months: No - Social History Usual Living Arrangement: With Spouse ADL: Independent Place of : [facility] History of Recent Travel: No Home Medications - Allergies Allergies/Adverse Reactions: Allergies Allergy/AdvReac Type Severity Reaction Status Date / Time codeine Allergy Verified 06/06/18 18:20 - Home Medications Home Medications: Ambulatory Orders Albuterol Sulfate Inhaler - [Ventolin Hfa Inhaler -] 1 - 2 inh PO QID PRN Apixaban [Eliquis] 2 tab PO DAILY 06/06/18 Atorvastatin Ca [Lipitor] 10 mg PO HS 06/06/18 Beclomethasone Dipropionate [Qvar] 8.7 gm IH BID 06/06/18 Desloratadine 5 mg PO DAILY 06/06/18 Fluticasone Propionate [Flonase Allergy Relief] 1 spray NS BID 06/06/18 Gabapentin 100 mg PO QID 06/06/18 Levothyroxine [Synthroid -] 100 mcg PO DAILY 06/06/18 Multivit-Min/FA/Lycopen/Lutein [Centrum Silver Tablet] 1 each PO DAILY 06/06/18 Umeclidinium [place] [Incruse Ellipta] 62.5 mcg IH DAILY 06/06/18 Vit B Comp/C/Folic/Iron/Vit E [Vitamin B Complex Tablet] 1 each PO DAILY Escitalopram Oxalate [Lexapro -] 40 tab PO DAILY 06/11/18 Family Disease History - Family Disease History Family History: Unremarkable Review of Systems - Review of Systems Respiratory: reports: Cough, Exercise Intolerance, SOB on Exertion, Wheezing. denies: Hemoptysis Physical Exam Vital Sings: Vital Signs Temperature 97.7 F 06/12/18 08:25 Pulse Rate 77 06/12/18 08:25 Respiratory Rate 18 06/12/18 08:25 Blood Pressure 119/72 06/12/18 08:25 O2 Sat by Pulse Oximetry (%) 100 06/11/18 21:00 Constitutional: Yes: Calm Eyes: Yes: EOM Intact HENT: Yes: Normocephalic Neck: Yes: Trachea Midline Cardiovascular: Yes: Regular Rate and Rhythm Respiratory: Yes: Wheezes (diffuse bilateral) Gastrointestinal: Yes: Normal Bowel Sounds Edema: No Labs: CBC, BMP 06/12/18 06:45 06/12/18 06:45 Imaging - Results Chest X-ray: Report Reviewed, Image Reviewed Cat Scan: Report Reviewed, Image Reviewed Problem List - Problems (1) DVT (deep venous thrombosis) Code(s): I82.409 - ACUTE EMBOLISM AND THOMBOS UNSP DEEP VN UNSP LOWER EXTREMITY Qualifiers: DVT location: lower extremity Affected thrombotic vein of extremity: unspecified vein of extremity Chronicity: unspecified Laterality: left Qualified Code(s): I82.402 - Acute embolism and thrombosis of unspecified deep veins of left lower extremity (2) Alcohol dependence with uncomplicated withdrawal Code(s): F10.230 - ALCOHOL DEPENDENCE WITH WITHDRAWAL, UNCOMPLICATED (3) Asthma Code(s): J45.909 - UNSPECIFIED ASTHMA, UNCOMPLICATED (4) Depression Code(s): F32.9 - MAJOR DEPRESSIVE DISORDER, SINGLE EPISODE, UNSPECIFIED (5) Diabetes mellitus Code(s): E11.9 - TYPE 2 DIABETES MELLITUS WITHOUT COMPLICATIONS Assessment/Plan A/E B. ASTHMA WILL START SOLUMEDROL/DUONEB/SINGULAIR CHECK PEAK FLOW 02 SUPPLEMENTATION WILL FOLLOW Nish WILSON MD
[2018-06-12] MEDS: methylPREDNISolone NA SUCC 40 MG/1 ML VIAL IVPUSH SCH ×2 (14:09→21:40)
[2018-06-12] MEDS: ALBUTEROL SO4 2.5/IPRATROPIUM 0.5 INH SOL 3 ML VIAL.NEB. NEB SCH ×2 (15:33→20:47)
[2018-06-12 17:50] LABS: INR 1.1 (0.83-1.09)
[2018-06-12 17:53] LABS: ACTIVATED PTT 66.9 SECONDS (25.2-36.5)
[2018-06-12] MEDS ORDERED: HEPARIN INFUSION - 25,000 UNITS/500 ML INFUS.BAG IVPB SCH (20:15)
[2018-06-12] MEDS: SENNOSIDES/DOCUSATE COMBO (SENNA PLUS) TABLET (UD) PO SCH (21:40)
[2018-06-12] MEDS: ATORVASTATIN CA 10 MG TABLET (FP) PO SCH (21:41)
[2018-06-12] MEDS ORDERED: MONTELUKAST NA 10 MG TABLET PO SCH (22:00)
[2018-06-13] MEDS: methylPREDNISolone NA SUCC 40 MG/1 ML VIAL IVPUSH SCH ×3 (02:37→15:04)
[2018-06-13] MEDS: LEVOTHYROXINE NA 112 MCG TABLET (FP) PO SCH (06:03)
[2018-06-13] MEDS: ALBUTEROL SO4 2.5/IPRATROPIUM 0.5 INH SOL 3 ML VIAL.NEB. NEB SCH ×3 (07:30→15:18)
--- NOTE | 2018-06-13 09:36 | PN ---
Physical Exam: SUBJECTIVE: Patient seen and examined at the bedside. ambulated to the bathroom, unsteady gait. still waiting for bed at [place]. if one becomes available, he can be transferred. OBJECTIVE: still having some upper body tremors. mildly anxious. libirium 25mg q 4 prn for any signs of withdrawal Vital Signs Period Temp Pulse Resp BP Sys/Mello Pulse Ox Last 24 Hr 97.4 F-98.2 F 85-107 18-20 108-125/43-64 97 GENERAL: The patient is awake, alert, and fully oriented, disheveled. HEAD: Normal with no signs of trauma. EYES: PERRL, extraocular movements intact, sclera anicteric, conjunctiva clear. No ptosis. ENT: Ears normal, nares patent, oropharynx clear without exudates NECK: Trachea midline, full range of motion, supple. LUNGS: no longer wheezing, lungs clear to auscultation HEART: Regular rate and rhythm ABDOMEN: Soft, nontender, nondistended, normoactive bowel sounds EXTREMITIES: left lower ext edema + dvt NEUROLOGICAL: Normal speech, gait not observed. PSYCH: Normal mood, normal affect. SKIN: Warm, dry, normal turgor, no rashes or lesions noted Laboratory Results - last 24 hr 06/12/18 16:30 PT with INR 13.00 INR 1.10 H PTT (Actin FS) 66.9 H Active Medications Generic Name Dose Route Start Last Admin Trade Name Freq PRN Reason Stop Dose Admin Albuterol Sulfate 1 amp 06/12/18 12:56 Ventolin 0.083% Nebulizer Soln - NEB Q1H PRN SHORT OF BREATH/WHEEZING Albuterol/Ipratropium 1 amp 06/12/18 16:00 06/13/18 07:30 Duoneb - NEB 1 amp RQID NIKKI Administration Atorvastatin Calcium 10 mg 06/09/18 22:00 06/12/18 21:41 Lipitor - PO 10 mg HS NIKKI Administration Escitalopram Oxalate 40 mg 06/12/18 11:31 Lexapro - PO DAILY NIKKI Fluticasone Propionate 1 spray 06/09/18 22:00 06/12/18 21:40 Flonase - NS 1 spray BID NIKKI Administration Gabapentin 100 mg 06/09/18 18:00 06/12/18 21:41 Neurontin - PO 100 mg QID NIKKI Administration Heparin Sodium (Porcine) 1,000 unit 06/09/18 17:41 06/12/18 09:59 Heparin - IVPUSH 1,000 unit PRN PRN Administration Heparin Heparin Sodium (Porcine) 5,000 unit 06/09/18 17:41 Heparin - IVPUSH PRN PRN Heparin Heparin Sodium/Dextrose 25,000 units in 500 mls @ 20 mls/hr 06/12/18 20:15 20:18 Heparin Infusion - IVPB 1,200 units/hr TITR NIKKI 24 mls/hr Administration Protocol 1,000 UNITS/HR Levothyroxine Sodium 112 mcg 06/10/18 07:00 06/13/18 06:03 Synthroid - PO 112 mcg DAILY@0700 NIKKI Administration Loratadine 10 mg 06/10/18 10:00 06/12/18 12:51 Claritin - PO 10 mg DAILY NIKKI Administration Methylprednisolone Sodium Succinate 40 mg 06/12/18 15:00 06/13/18 02:37 Solu-Medrol - IVPUSH 40 mg Q6H-IV NIKKI Administration Montelukast Sodium 10 mg 06/12/18 22:00 06/12/18 21:41 Singulair - PO 10 mg HS NIKKI Administration Multivit/Ca Carb/B Cmplx/FA/Prenat 1 tablet 06/10/18 10:00 06/12/18 12:52 Nephro-Evangelina - PO 1 tablet DAILY NIKKI Administration Multivitamins/Minerals/Vitamin C 1 tab 06/10/18 10:00 06/12/18 12:53 Tab-A-Vit - PO 1 tab DAILY NIKKI Administration Ondansetron HCl 4 mg 06/09/18 13:15 Zofran Injection IVPUSH Q6H PRN NAUSEA Polyethylene Glycol 17 gm 06/09/18 22:00 06/12/18 21:46 Miralax (For Daily Use) - PO Not Given BID NIKKI Senna/Docusate Sodium 2 tablet 06/09/18 22:00 06/12/18 21:40 Pericolace - PO 2 tablet HS NIKKI Administration Thiamine HCl 100 mg 06/10/18 10:00 06/12/18 12:51 Vitamin B1 - PO 100 mg DAILY NIKKI Administration ASSESSMENT/PLAN: Patient is a 72 year old male with a significant past medical history of Alcohol Abuse, Depression, Asthma, HLD, hypothyroidism, long history of DVTs/PE beginning in 1979. Patient was on Eliquis for left lower ex edema but has not been taking it secondary to chronic ETOH abuse. Patient admitted for both LLE DVT and ETOH abuse. Vascular: LLE DVT. extensive DVT throughout common and superficial/femoral, popliteal and posterior tibial arteries. Non compliant with Eliquis at home secondary to ETOH abuse. reports that patient drinks in excess and non compliant with medications. Started on heparin drip s/p IVC filter on 06/10/18. thrombectomy attempted but IR unable to bypass catheter. will reattempt with catheter per IR. likely friday CTA negative for PE GI: Hepatic mass Possible right lobe mass. MRI ordered to further evaluate. Psyche ETOH abuse with acute withdrawal ibrium taper completed.but still having some tremors with mild anxiety. libirum 25mg prn ordered Pulm: COPD exacerbation, improved started on solumedrol taper, lungs now clear seen by pulmonary Card: Hyperlipidemia On statin therapy fen tolerating po monitor electrolytes low salt diet. prophy heparin drip. ivc filter protonix disposition. full code. possible transfer to [place] pending bed availability. Accepting vascular surgeon is Dr. Luis Manning. Visit type - Emergency Visit Emergency Visit: Yes ED Registration Date: 06/06/18 Care time: The patient presented to the Emergency Department on the above date and was hospitalized for further evaluation of their emergent condition. - New Patient This patient is new to me today: No - Critical Care Critical Care patient: No - Discharge Referral Referred to [facility] No
[2018-06-13] MEDS ORDERED: chlordiazePOXIDE HCL 25 MG CAPSULE PO PRN (09:40)
[2018-06-13] MEDS: VITAMIN B COMP W-C 1 EA TABLET PO SCH (09:51)
[2018-06-13] MEDS: GABAPENTIN 100 MG CAPSULE (FP) PO SCH ×3 (09:51→17:14)
[2018-06-13] MEDS: THIAMINE HCL 100 MG TABLET (FP) PO SCH (09:51)
[2018-06-13] MEDS: LORATADINE 10 MG TABLET PO SCH (09:51)
[2018-06-13] MEDS: MULTIVITAMINS (DAILY MVI) TABLET (FP) PO SCH (09:51)
[2018-06-13] MEDS: POLYETHYLENE GLYCOL 3350 119 GM BTL PO SCH (09:52)
[2018-06-13] MEDS: FLUTICASONE PROP 0.05% 16 GM NASAL SPRAY NS SCH (09:56)
[2018-06-13 11:31] VITALS: TEMP 97.8
--- NOTE | 2018-06-13 15:27 | PN ---
Progress Note (short form) - Note Progress Note: PULMONARY APPEARS MORE TREMULOUS TODAY VSS PALE CLEAR LUNG SMILEY S1S2 BS+ LEFT LOWER EXT EDEMA CHART REVIEWED PLAN IS FOR TRANSFER TO [facility] Problem List - Problems (1) DVT (deep venous thrombosis) Code(s): I82.409 - ACUTE EMBOLISM AND THOMBOS UNSP DEEP VN UNSP LOWER EXTREMITY Qualifiers: DVT location: lower extremity Affected thrombotic vein of extremity: unspecified vein of extremity Chronicity: unspecified Laterality: left Qualified Code(s): I82.402 - Acute embolism and thrombosis of unspecified deep veins of left lower extremity (2) Alcohol dependence with uncomplicated withdrawal Code(s): F10.230 - ALCOHOL DEPENDENCE WITH WITHDRAWAL, UNCOMPLICATED (3) Asthma Code(s): J45.909 - UNSPECIFIED ASTHMA, UNCOMPLICATED (4) Depression Code(s): F32.9 - MAJOR DEPRESSIVE DISORDER, SINGLE EPISODE, UNSPECIFIED (5) Diabetes mellitus Code(s): E11.9 - TYPE 2 DIABETES MELLITUS WITHOUT COMPLICATIONS Assessment/Plan A/E B. ASTHMA STARTED SOLUMEDROL/DUONEB/SINGULAIR PEAK FLOW 400 L/M 02 SUPPLEMENTATION LIBRIUM ORDERED R KATIE OSEI Problem List - Problems (1) DVT (deep venous thrombosis) Code(s): I82.409 - ACUTE EMBOLISM AND THOMBOS UNSP DEEP VN UNSP LOWER EXTREMITY Qualifiers: DVT location: lower extremity Affected thrombotic vein of extremity: unspecified vein of extremity Chronicity: unspecified Laterality: left Qualified Code(s): I82.402 - Acute embolism and thrombosis of unspecified deep veins of left lower extremity (2) Alcohol dependence with uncomplicated withdrawal Code(s): F10.230 - ALCOHOL DEPENDENCE WITH WITHDRAWAL, UNCOMPLICATED (3) Asthma Code(s): J45.909 - UNSPECIFIED ASTHMA, UNCOMPLICATED (4) Depression Code(s): F32.9 - MAJOR DEPRESSIVE DISORDER, SINGLE EPISODE, UNSPECIFIED (5) Diabetes mellitus Code(s): E11.9 - TYPE 2 DIABETES MELLITUS WITHOUT COMPLICATIONS
[2018-06-13 15:36] VITALS: BP 120/68; PULSE 94
--- NOTE | 2018-06-13 17:36 | DS ---
Physical Exam: SUBJECTIVE: Patient seen and examined at the bedside. For transfer to [place] today. Accepting physician is Dr. Conway (Vascular) signout given to Dr. Conway OBJECTIVE: Vital Signs Period Temp Pulse Resp BP Sys/Mello Pulse Ox Last 24 Hr 97.4 F-98.2 F 85-100 20-22 119-136/58-68 97-97 PHYSICAL EXAM GENERAL: The patient is awake, alert, and fully oriented, disheveled. HEAD: Normal with no signs of trauma. EYES: PERRL, extraocular movements intact, sclera anicteric, conjunctiva clear. No ptosis. ENT: Ears normal, nares patent, oropharynx clear without exudates NECK: Trachea midline, full range of motion, supple. LUNGS: no longer wheezing, lungs clear to auscultation HEART: Regular rate and rhythm ABDOMEN: Soft, nontender, nondistended, normoactive bowel sounds EXTREMITIES: left lower ext edema + dvt NEUROLOGICAL: Normal speech, gait not observed. PSYCH: Normal mood, normal affect. SKIN: Warm, dry, normal turgor, no rashes or lesions noted LABS Laboratory Results - last 24 hr 06/12/18 06/13/18 16:30 10:30 PT with INR 13.00 INR 1.10 H PTT (Actin FS) 66.9 H 71.0 H HOSPITAL COURSE: Date of Admission:06/06/18 Date of Discharge: 06/13/18 Patient is a 72 year old male with a significant past medical history of Alcohol Abuse, Depression, Asthma, HLD, hypothyroidism, long history of DVTs/PE beginning in 1979. Patient was on Eliquis for left lower ex edema but has not been taking it secondary to chronic ETOH abuse. Patient admitted for both LLE DVT and ETOH abuse. HOSPITAL COURSE BY PROBLEM LIST: Vascular: LLE DVT. extensive DVT throughout common and superficial/femoral, popliteal and posterior tibial arteries. Non compliant with Eliquis at home secondary to ETOH abuse. reports that patient drinks in excess and non compliant with medications. Started on heparin drip (maintain aptt between 60-80) s/p IVC filter on 06/10/18 by IR (Dr. Venegas) thrombectomy attempted but IR unable to bypass catheter. Patient to be discharged to [facility] for further workup. CTA negative for PE GI: Hepatic mass Possible right lobe mass. MRI ordered to further evaluate (has not yet been done by time of transfer to [place]). Psyche ETOH abuse with acute withdrawal ibrium taper completed.but still having some tremors with mild anxiety. libirum 25mg prn ordered for any acute signs of withdrawal. Patient unwilling to get help for ETOH abuse at this time. Pulm: COPD exacerbation, improved started on solumedrol taper, lungs now clear seen by pulmonary tolerating room air. Card: Hyperlipidemia On statin therapy disposition. full code. Transfer to [place] for further workup. Accepting vascular surgeon is Dr. Luis Manning. Minutes to complete discharge: 60 Discharge Summary Reason For Visit: LEFT THIGH PAIN Current Active Problems Alcohol withdrawal (Acute) DVT (deep venous thrombosis) (Acute) Elevated bilirubin (Acute) Transaminitis (Acute) Condition: Guarded - Instructions Diet, Activity, Other Instructions: TRANSFER TO [facility] Referrals: Shakeel Lovell [Primary Care Provider] - Ugo Conway [Non Staff, Medical] - Disposition: TRANSFER ACUTE CARE/OTHER HOSP - Home Medications Comprehensive Discharge Medication List: Ambulatory Orders Albuterol Sulfate Inhaler - [Ventolin Hfa Inhaler -] 1 - 2 inh PO QID PRN Apixaban [Eliquis] 2 tab PO DAILY 06/06/18 Atorvastatin Ca [Lipitor] 10 mg PO HS 06/06/18 Beclomethasone Dipropionate [Qvar] 8.7 gm IH BID 06/06/18 Desloratadine 5 mg PO DAILY 06/06/18 Fluticasone Propionate [Flonase Allergy Relief] 1 spray NS BID 06/06/18 Gabapentin 100 mg PO QID 06/06/18 Levothyroxine [Synthroid -] 100 mcg PO DAILY 06/06/18 Multivit-Min/FA/Lycopen/Lutein [Centrum Silver Tablet] 1 each PO DAILY 06/06/18 Umeclidinium [place] [Incruse Ellipta] 62.5 mcg IH DAILY 06/06/18 Vit B Comp/C/Folic/Iron/Vit E [Vitamin B Complex Tablet] 1 each PO DAILY Escitalopram Oxalate [Lexapro -] 40 tab PO DAILY 06/11/18 This patient is new to me today: Yes Date on this admission: 06/13/18 Emergency Visit: No Critical Care patient: No - Discharge Referral Referred to [facility] No
== END 2018-06-13 18:43 | disposition short-term general hospital (02) | DRG 253 ==
LOC: FER 18:00 → FM/S 19:05 → J5S 06-09 17:06
PROVIDERS: ADMIT Internal Medicine; ATTEND Nurse Practitioner Family
PROC: 06H03DZ Insertion of Intraluminal Device into Inferior Vena Cava, Percutaneous Approach (ICD-10-PCS; principal; 2018-06-10)
PROC: B519ZZA Fluoroscopy of Inferior Vena Cava, Guidance (ICD-10-PCS; 2018-06-10)
PROC: B549ZZA Ultrasonography of Inferior Vena Cava, Guidance (ICD-10-PCS; 2018-06-10)
PROC: 3E0F7GC Introduction of Other Therapeutic Substance into Respiratory Tract, Via Natural or Artificial Opening (ICD-10-PCS; 2018-06-12)
DX: I82.432 Acute embolism and thrombosis of left popliteal vein (principal); F10.230 Alcohol dependence with withdrawal, uncomplicated; J44.1 Chronic obstructive pulmonary disease with (acute) exacerbation; R63.4 Abnormal weight loss; Z68.22 Body mass index [BMI] 22.0-22.9, adult; R16.0 Hepatomegaly, not elsewhere classified; Z91.14 Patient's other noncompliance with medication regimen; R74.0 Nonspecific elevation of levels of transaminase and lactic acid dehydrogenase [LDH]; K76.0 Fatty (change of) liver, not elsewhere classified; G62.1 Alcoholic polyneuropathy; E11.9 Type 2 diabetes mellitus without complications; I10 Essential (primary) hypertension; E03.9 Hypothyroidism, unspecified; J45.909 Unspecified asthma, uncomplicated; Z86.711 Personal history of pulmonary embolism; E78.5 Hyperlipidemia, unspecified; Z86.718 Personal history of other venous thrombosis and embolism; F32.9 Major depressive disorder, single episode, unspecified
CPT/HCPCS: 36415; 37191; 71045-TC-FY; 71275-TC; 74175-TC; 75820-TC-FY; 76000-TC-FY; 76705-TC; 76937-TC; 80048; 80053; 80076; 80307; 82272; 82550; 83036; 83690; 83735; 83880; 84100; 84443; 85025; 85027; 85610; 85730; 87040; 93005; 93306-TC; 93971-TC; 94150; 94640; 99285-25; C1769; C1880; C1894; J1644; J7030